=== PATIENT | female | born 1950 | race Caucasian/White ===

== ENCOUNTER → 2020-12-08 15:38 | Outpatient (BNVA) | payer OTHER, SELFPAY | PROVIDERS: PCP Internal Medicine; Visit Provider Anesthesiology | DX: M96.1 Postlaminectomy syndrome, not elsewhere classified (principal); M53.3 Sacrococcygeal disorders, not elsewhere classified; M46.1 Sacroiliitis, not elsewhere classified | CPT/HCPCS: 99202 ==

== ENCOUNTER 2021-01-17 08:27 | Outpatient (REF) | payer OTHER, SELFPAY ==
--- NOTE | ~2021-01-17 | XR_ITS ---
EXAMINATION: XR LUMBOSACRAL SPINE WITH OBLIQUES CLINICAL INFORMATION: Postlaminectomy syndrome. COMPARISON: None TECHNIQUE: 5 views of lumbar spine. FINDINGS: There is mild straightening of lumbar lordosis. There is a disc prosthesis at L4-L5 disc levels stabilized with bilateral L4-L5 pedicular screws and interconnecting rods. The heart at is intact. There is loss of L3-L4 and L2-L3 disc heights. No acute fracture or lytic process seen. On oblique views no pars defect or listhesis seen. No lytic or sclerotic process visualized. The paravertebral soft tissues are normal. XR/XR lumbar spine 4V min IMPRESSION: Disc prosthesis L4-L5 disc level with bilateral pedicle screws antegrade rods for posterior stabilization. Degenerative disc changes are seen at L2-L3 and L3-L4 disc levels without acute fracture or dislocation.
== END 2021-01-17 08:28 | disposition home or self-care (01) ==
LOC: HO.XRAY 08:27
PROVIDERS: PCP Internal Medicine; Visit Provider Anesthesiology
DX: M96.1 Postlaminectomy syndrome, not elsewhere classified (principal); M53.3 Sacrococcygeal disorders, not elsewhere classified; M46.1 Sacroiliitis, not elsewhere classified
CPT/HCPCS: 72110; 99212

== ENCOUNTER 2021-03-15 06:22 | Outpatient (REF) | payer OTHER, SELFPAY ==
--- NOTE | ~2021-03-15 | FL_ITS ---
EXAMINATION: XR FLUOROSCOPY WITH IMAGES CLINICAL INFORMATION: Post laminectomy syndrome. COMPARISON: None. TECHNIQUE: Fluoroscopy performed by Alva Lim NP Fluoroscopy time: 0.2 minutes DAP: 2.83 Gycm2 Images: 2 FINDINGS: There is L4-L5 disc prosthesis with bilateral L4-L5 pedicle screws and interconnecting rods. A needle is positioned overlying the L3 disc level and appears intrathecal on the lateral view. Visualized vertebral heights and disc heights are normal. FL/FL guidance in treatment room IMPRESSION: L4-L5 disc prosthesis with bilateral pedicular screws and interconnecting rods.
== END 2021-03-15 06:23 | disposition home or self-care (01) ==
LOC: HO.RADIR 06:22
PROVIDERS: Visit Provider Anesthesiology
DX: M96.1 Postlaminectomy syndrome, not elsewhere classified (principal); M53.3 Sacrococcygeal disorders, not elsewhere classified; M46.1 Sacroiliitis, not elsewhere classified; G89.4 Chronic pain syndrome
CPT/HCPCS: 62323; J2270; Q9967

== ENCOUNTER → 2021-03-23 08:47 | Outpatient (BNVA) | payer OTHER, SELFPAY | PROVIDERS: PCP Internal Medicine; Visit Provider Anesthesiology | DX: M96.1 Postlaminectomy syndrome, not elsewhere classified (principal); M53.3 Sacrococcygeal disorders, not elsewhere classified; M46.1 Sacroiliitis, not elsewhere classified; G89.4 Chronic pain syndrome | CPT/HCPCS: 99212 ==

== ENCOUNTER 2022-04-04 11:12 | Outpatient (REF) | payer OTHER, SELFPAY ==
[2022-04-04 14:18] LABS: C Reactive Protein 0.12 mg/dL (< or = 0.50)
[2022-04-04 14:29] LABS: Erythrocyte Sedimentation Rate 23 MM/HR (0-20)
[2022-04-05 04:47] LABS: HBS Num1 0.96 mIU/mL (0-7.99); HBc Num1 0.06 S/CO (0.00-0.79); HBsAGNum1 0.22 S/CO (0.00-0.99); Hepatitis A Antibody IgM 0.19 Index (0-0.79); Hepatitis B Core Antibody Nonreactive (Nonreactive); Hepatitis B Surface Antigen Negative (Negative); ~HepC Num1 0.09 S/CO (0.00-0.79); ~Hepatitis A Antibody IgM Nonreactive (Nonreactive); ~Hepatitis B Surface Antibody NONREACTIVE (Nonreactive); ~Hepatitis C Antibody Nonreactive (Nonreactive)
[2022-04-06 13:03] LABS: Cyclic Citrullinated Peptide <16 UNITS
[2022-04-07 05:52] LABS: Antibody to SS-A Antigen <1.0 NEG AI (<1.0 NEG); Antibody to SS-B Antigen <1.0 NEG AI (<1.0 NEG)
== END 2022-04-04 11:13 | disposition home or self-care (01) ==
LOC: HO.10HDL 11:12
PROVIDERS: Visit Provider Internal Medicine Rheumatology
DX: M79.641 Pain in right hand (principal); M79.642 Pain in left hand; N18.30 Chronic kidney disease, stage 3 unspecified; R76.8 Other specified abnormal immunological findings in serum; H04.129 Dry eye syndrome of unspecified lacrimal gland; Z79.899 Other long term (current) drug therapy
CPT/HCPCS: 36415; 85652; 86140; 86200; 86235; 86704; 86706; 86709; 86803; 87340; 99202

== ENCOUNTER 2022-04-05 09:42 | Outpatient (REF) | payer OTHER, SELFPAY ==
--- NOTE | ~2022-04-05 | XR_ITS ---
EXAMINATION: X-RAY RIGHT HAND X-RAY LEFT HAND CLINICAL INFORMATION: Abnormal immunological findings in serum. COMPARISON: None TECHNIQUE: 3 views of each hand. FINDINGS: Right hand: Decrease bone mineralization. Nonspecific deformity of the distal fifth proximal phalanx. Amputation of the third and fourth digits at the level of the middle phalanges. Multifocal moderate joint space narrowing with tiny marginal enthesophytes. No erosions. Mild widening of the scapholunate interval. No abnormal soft tissue calcifications. Left hand: No acute fractures or malalignment. Decreased bone mineralization. Severe joint space narrowing, subcortical sclerosis and productive changes in the first CMC joint and triscaphe space. The scapholunate interval is preserved. No erosions. No abnormal soft tissue calcifications. XR/XR hand LT min 3V IMPRESSION: Right hand: 1. Query fracture of the distal aspect of the fifth proximal phalanx. Correlate with point tenderness. 2. Widening of the scapholunate interval suggesting scapholunate ligament injury. 3. Amputation of the third and fourth digits to the level of the middle phalanges. 4. Moderate multifocal osteoarthrosis. 5. Decreased bone mineralization. Left hand: 1. No acute fractures. 2. Decreased bone mineralization. 3. Severe osteoarthrosis of the first CMC joint and triscaphe space. 4. Decreased bone mineralization.
--- NOTE | ~2022-04-05 | XR_ITS ---
EXAMINATION: X-RAY RIGHT HAND X-RAY LEFT HAND CLINICAL INFORMATION: Abnormal immunological findings in serum. COMPARISON: None TECHNIQUE: 3 views of each hand. FINDINGS: Right hand: Decrease bone mineralization. Nonspecific deformity of the distal fifth proximal phalanx. Amputation of the third and fourth digits at the level of the middle phalanges. Multifocal moderate joint space narrowing with tiny marginal enthesophytes. No erosions. Mild widening of the scapholunate interval. No abnormal soft tissue calcifications. Left hand: No acute fractures or malalignment. Decreased bone mineralization. Severe joint space narrowing, subcortical sclerosis and productive changes in the first CMC joint and triscaphe space. The scapholunate interval is preserved. No erosions. No abnormal soft tissue calcifications. XR/XR hand RT min 3V IMPRESSION: Right hand: 1. Query fracture of the distal aspect of the fifth proximal phalanx. Correlate with point tenderness. 2. Widening of the scapholunate interval suggesting scapholunate ligament injury. 3. Amputation of the third and fourth digits to the level of the middle phalanges. 4. Moderate multifocal osteoarthrosis. 5. Decreased bone mineralization. Left hand: 1. No acute fractures. 2. Decreased bone mineralization. 3. Severe osteoarthrosis of the first CMC joint and triscaphe space. 4. Decreased bone mineralization.
--- NOTE | ~2022-04-05 | XR_ITS ---
EXAMINATION: XR HIP, LEFT CLINICAL INFORMATION: Abnormal immunological finding in serum. COMPARISON: None TECHNIQUE: Two views of the left hip. FINDINGS: No acute fractures or malalignment. Mild to moderate joint space narrowing, subcortical sclerosis and osteophytes in the hips. Calcific tendinosis noted adjacent to the left greater trochanter. SI joints are symmetric. Pubic symphysis is maintained. No erosions. Atherosclerotic disease. L4-L5 posterior lumbar hardware with interdisc spacer. XR/XR hip LT w PEL1V IMPRESSION: 1. No acute fractures or malalignment. 2. Mild to moderate degenerative osteoarthritis of the hips. 3. Calcific tendinosis of the left hip.
== END 2022-04-05 09:43 | disposition home or self-care (01) ==
LOC: HO.XRAY 09:42
PROVIDERS: PCP Internal Medicine; Visit Provider Internal Medicine Rheumatology
DX: M79.641 Pain in right hand (principal); M79.642 Pain in left hand; R76.8 Other specified abnormal immunological findings in serum
CPT/HCPCS: 73130; 73502

== ENCOUNTER → 2022-04-24 08:49 | Outpatient (BNVA) | payer OTHER, SELFPAY | PROVIDERS: PCP Internal Medicine; Visit Provider Internal Medicine Rheumatology | DX: M05.79 Rheumatoid arthritis with rheumatoid factor of multiple sites without organ or systems involvement (principal); N18.30 Chronic kidney disease, stage 3 unspecified; M47.816 Spondylosis without myelopathy or radiculopathy, lumbar region; M16.0 Bilateral primary osteoarthritis of hip; Z79.899 Other long term (current) drug therapy | CPT/HCPCS: 99212 ==

== ENCOUNTER 2022-05-25 10:12 | Outpatient (REF) | payer OTHER, SELFPAY ==
[2022-05-25 10:38] LABS: MANUAL DIFF FLAG NO
[2022-05-25 10:55] LABS: Basophils Absolute Auto 0.1 X10*3/uL (0.0-0.2); Eosinophils Absolute Auto 0.2 X10*3/uL (0.0-0.4); Eosinophils Percent Auto 2.4 % (0-4); Hematocrit 44.8 % (37.0-47.0); Hemoglobin 14.4 g/dl (12.0-16.0); Imm Gran Abs Auto 0.03 X10*3/uL (0.00-0.03); Imm Gran Pct Auto 0.3 % (0.0-0.4); Lymphocytes Percent Auto 22.9 % (20-40); Mean Corpuscular HGB Conc 32.1 g/dl (31.0-35.0); Mean Corpuscular Hemoglobin 32.4 pg (27.0-33.0); Mean Corpuscular Volume 100.7 fL (80.0-98.0); Mean Platelet Volume 10.8 fL (9.4-12.3); Monocytes Absolute Auto 0.5 X10*3/uL (0.1-1.2); Monocytes Percent Auto 6.1 % (2-11); Neutrophils Percent Auto 67.3 % (45-73); Platelet Count 241 X10*3/uL (160-400); Red Blood Count 4.45 X10*6/uL (4.20-5.50); Red Cell Distribution Width 14.2 % (11.0-16.0); White Blood Count 8.9 X10*3/uL (4.8-10.8)
[2022-05-25 11:27] LABS: Erythrocyte Sedimentation Rate 25 MM/HR (0-20)
[2022-05-25 15:02] LABS: Creatinine Urine 164.18 mg/dL; Protein/Creatinine Ratio, Ur 0.09 (<0.2); Total Protein Urine Random 14 mg/dL (<12)
[2022-05-25 18:14] LABS: Alanine Aminotransferase 15 U/L (0-31); Aspartate Amino Transferase 18 U/L (5-31); C Reactive Protein 0.17 mg/dL (< or = 0.50); Estimated Glomerular Filt Rate 42
== END 2022-05-25 10:13 | disposition home or self-care (01) ==
LOC: HO.10HDL 10:12
PROVIDERS: Visit Provider Internal Medicine Rheumatology
DX: M79.641 Pain in right hand (principal); M79.642 Pain in left hand; N18.30 Chronic kidney disease, stage 3 unspecified; R76.8 Other specified abnormal immunological findings in serum; M05.79 Rheumatoid arthritis with rheumatoid factor of multiple sites without organ or systems involvement; Z79.899 Other long term (current) drug therapy
CPT/HCPCS: 36415; 82565; 84156; 84450; 84460; 85025; 85652; 86140

== ENCOUNTER → 2022-06-07 10:48 | Outpatient (BNVA) | payer OTHER, SELFPAY | PROVIDERS: PCP Internal Medicine; Visit Provider Internal Medicine Rheumatology | DX: M05.79 Rheumatoid arthritis with rheumatoid factor of multiple sites without organ or systems involvement (principal); Z79.631 Long term (current) use of antimetabolite agent | CPT/HCPCS: 99212 ==

== ENCOUNTER 2022-08-14 09:59 | Outpatient (REF) | payer OTHER, SELFPAY ==
[2022-08-14 10:40] LABS: MANUAL DIFF FLAG NO
[2022-08-14 10:45] LABS: Basophils Absolute Auto 0.1 X10*3/uL (0.0-0.2); Basophils Percent Auto 1.1 % (0-2); Eosinophils Absolute Auto 0.2 X10*3/uL (0.0-0.4); Eosinophils Percent Auto 2.3 % (0-4); Hematocrit 42.6 % (37.0-47.0); Hemoglobin 13.7 g/dl (12.0-16.0); Imm Gran Abs Auto 0.03 X10*3/uL (0.00-0.03); Imm Gran Pct Auto 0.4 % (0.0-0.4); Lymphocytes Absolute Auto 1.6 X10*3/uL (1.2-4.9); Lymphocytes Percent Auto 19.4 % (20-40); Mean Corpuscular HGB Conc 32.2 g/dl (31.0-35.0); Mean Corpuscular Volume 105.7 fL (80.0-98.0); Monocytes Absolute Auto 0.6 X10*3/uL (0.1-1.2); Monocytes Percent Auto 7.1 % (2-11); Neutrophils Absolute Auto 5.8 x10*3/uL (2.0-8.3); Neutrophils Percent Auto 69.7 % (45-73); Platelet Count 221 X10*3/uL (160-400); Red Blood Count 4.03 X10*6/uL (4.20-5.50); Red Cell Distribution Width 14.3 % (11.0-16.0); White Blood Count 8.3 X10*3/uL (4.8-10.8)
[2022-08-14 11:24] LABS: Alanine Aminotransferase 16 U/L (0-31); Aspartate Amino Transferase 19 U/L (5-31); C Reactive Protein 0.29 mg/dL (< or = 0.50); Estimated Glomerular Filt Rate 42
[2022-08-14 11:32] LABS: Erythrocyte Sedimentation Rate 23 MM/HR (0-20)
== END 2022-08-14 10:00 | disposition home or self-care (01) ==
LOC: HO.10HDL 09:59
PROVIDERS: Visit Provider Internal Medicine Rheumatology
DX: M05.79 Rheumatoid arthritis with rheumatoid factor of multiple sites without organ or systems involvement (principal); Z79.899 Other long term (current) drug therapy
CPT/HCPCS: 36415; 82565; 84450; 84460; 85025; 85652; 86140

== ENCOUNTER → 2022-08-23 08:24 | Outpatient (BNVA) | payer OTHER, SELFPAY | PROVIDERS: PCP Internal Medicine; Visit Provider Internal Medicine Rheumatology | DX: M05.79 Rheumatoid arthritis with rheumatoid factor of multiple sites without organ or systems involvement (principal); M47.816 Spondylosis without myelopathy or radiculopathy, lumbar region; N18.30 Chronic kidney disease, stage 3 unspecified; Z79.899 Other long term (current) drug therapy | CPT/HCPCS: 99212 ==

== ENCOUNTER 2022-11-21 11:10 | Outpatient (REF) | payer OTHER, SELFPAY ==
[2022-11-21 13:11] LABS: MANUAL DIFF FLAG NO
[2022-11-21 13:24] LABS: Basophils Absolute Auto 0.1 X10*3/uL (0.0-0.2); Basophils Percent Auto 1.3 % (0-2); Eosinophils Absolute Auto 0.2 X10*3/uL (0.0-0.4); Hematocrit 43.6 % (37.0-47.0); Hemoglobin 14.1 g/dl (12.0-16.0); Imm Gran Abs Auto 0.03 X10*3/uL (0.00-0.03); Imm Gran Pct Auto 0.5 % (0.0-0.4); Lymphocytes Absolute Auto 1.5 X10*3/uL (1.2-4.9); Mean Corpuscular HGB Conc 32.3 g/dl (31.0-35.0); Mean Corpuscular Hemoglobin 35.2 pg (27.0-33.0); Mean Corpuscular Volume 108.7 fL (80.0-98.0); Mean Platelet Volume 11.1 fL (9.4-12.3); Monocytes Absolute Auto 0.4 X10*3/uL (0.1-1.2); Monocytes Percent Auto 7.3 % (2-11); Neutrophils Absolute Auto 3.8 x10*3/uL (2.0-8.3); Neutrophils Percent Auto 62.9 % (45-73); Platelet Count 214 X10*3/uL (160-400); Red Blood Count 4.01 X10*6/uL (4.20-5.50); Red Cell Distribution Width 13.2 % (11.0-16.0)
[2022-11-21 13:37] LABS: Alanine Aminotransferase 14 U/L (0-31); Aspartate Amino Transferase 16 U/L (5-31); C Reactive Protein 0.46 mg/dL (< or = 0.50); Estimated Glomerular Filt Rate > 60
[2022-11-21 14:10] LABS: Erythrocyte Sedimentation Rate 21 MM/HR (0-20)
== END 2022-11-21 11:11 | disposition home or self-care (01) ==
LOC: HO.10HDL 11:10
PROVIDERS: Visit Provider Internal Medicine Rheumatology
DX: M05.79 Rheumatoid arthritis with rheumatoid factor of multiple sites without organ or systems involvement (principal); Z79.899 Other long term (current) drug therapy
CPT/HCPCS: 36415; 82565; 84450; 84460; 85025; 85652; 86140

== ENCOUNTER → 2022-12-11 08:03 | Outpatient (BNVA) | payer OTHER, SELFPAY | PROVIDERS: PCP Internal Medicine; Visit Provider Internal Medicine Rheumatology | DX: M05.79 Rheumatoid arthritis with rheumatoid factor of multiple sites without organ or systems involvement (principal); M47.816 Spondylosis without myelopathy or radiculopathy, lumbar region; Z79.899 Other long term (current) drug therapy | CPT/HCPCS: 99212 ==

== ENCOUNTER 2023-02-27 10:01 | Outpatient (REF) | payer OTHER, SELFPAY ==
[2023-02-27 13:19] LABS: MANUAL DIFF FLAG NO
[2023-02-27 13:33] LABS: Basophils Absolute Auto 0.1 X10*3/uL (0.0-0.2); Basophils Percent Auto 1.3 % (0-2); Eosinophils Absolute Auto 0.4 X10*3/uL (0.0-0.4); Eosinophils Percent Auto 5.1 % (0-4); Hematocrit 45.3 % (37.0-47.0); Hemoglobin 14.8 g/dl (12.0-16.0); Imm Gran Abs Auto 0.04 X10*3/uL (0.00-0.03); Imm Gran Pct Auto 0.5 % (0.0-0.4); Lymphocytes Absolute Auto 1.6 X10*3/uL (1.2-4.9); Lymphocytes Percent Auto 19.6 % (20-40); Mean Corpuscular HGB Conc 32.7 g/dl (31.0-35.0); Mean Corpuscular Volume 101.1 fL (80.0-98.0); Mean Platelet Volume 10.4 fL (9.4-12.3); Monocytes Absolute Auto 0.7 X10*3/uL (0.1-1.2); Monocytes Percent Auto 8.4 % (2-11); Neutrophils Absolute Auto 5.5 x10*3/uL (2.0-8.3); Neutrophils Percent Auto 65.1 % (45-73); Platelet Count 284 X10*3/uL (160-400); Red Blood Count 4.48 X10*6/uL (4.20-5.50); Red Cell Distribution Width 12.3 % (11.0-16.0); White Blood Count 8.4 X10*3/uL (4.8-10.8)
[2023-02-27 14:12] LABS: Erythrocyte Sedimentation Rate 50 MM/HR (0-20)
[2023-02-27 14:13] LABS: Anion Gap 15 (12-20); Blood Urea Nitrogen 20 mg/dL (9-16); C Reactive Protein 2.34 mg/dL (< or = 0.50); Calcium 9.8 mg/dL (8.4-10.2); Carbon Dioxide 26 mmol/L (22-29); Chloride 98 mmol/L (96-108); Estimated Glomerular Filt Rate 58; Glucose Random 111 mg/dL (60-115); Potassium 5.1 mmol/L (3.3-5.1); Sodium 134 mmol/L (135-145)
== END 2023-02-27 10:02 | disposition home or self-care (01) ==
LOC: HO.10HDL 10:01
PROVIDERS: Visit Provider Internal Medicine Rheumatology
DX: M05.79 Rheumatoid arthritis with rheumatoid factor of multiple sites without organ or systems involvement (principal); Z79.899 Other long term (current) drug therapy
CPT/HCPCS: 36415; 80048; 85025; 85652; 86140

== ENCOUNTER 2023-03-13 08:03 | Outpatient (AMB) | payer OTHER, SELFPAY ==
--- NOTE | 2023-03-13 08:04 | MHC.OFFVIS ---
Intake Vital Signs 03/13/23 08:12 Height 5 ft 6 in Weight 177 lb 0.499 oz BMI 28.6 BP 112/72 Blood Pressure Location Lt brachial Position Sitting Pulse 65 Pulse Source Pulse Oximeter Temp 97.6 F Temp Source Skin Pulse Oximetry (%) 98 Oxygen Delivery Method Room Air Intake Visit Reasons: RA Intake Note: Patient presents today for RA follow up. Retail Link Analyst Required: No Accompanied by: Self / Same As Patient Allergies fish oil Allergy (Verified 03/13/23 08:04) unknown penicillin G Allergy (Verified 03/13/23 08:04) unknown aspirin Adverse Reaction (Intermediate, Verified 03/13/23 08:04) Nausea and Vomiting methocarbamol Adverse Reaction (Intermediate, Verified 03/13/23 08:04) Nausea and Vomiting Medication List - Last Reconciled 03/13/23 by Brendon Warren MD acetaminophen (Tylenol Extra Strength) 1,500 mg PO BID atenolol 50 mg PO DAILY buprenorphine 7.5 mcg/hour 1 patch transdermal Q7D levothyroxine 125 mcg PO DAILY lisinopril 10 mg PO DAILY multivitamin 1 tab PO DAILY simvastatin 20 mg PO BEDTIME HPI HPI Comments History of Present Illness Details The patient returns for evaluation of her rheumatoid arthritis. She remains on acetaminophen as the sole treatment for now. She takes Suboxone via a patch for her lumbar pain with sciatica prescribed by Dr. Kraft. That seemed to work fine with her back pain. She did some moving of her goods from her camper this weekend and had a bit more back pain but is walking comfortably with a cane. Her peripheral joints do not seem to bother with exception of the left knee which tends to swell intermittently. She was supposed to get an eye exam so we could assess her suitability for hydroxychloroquine but she could not get an appointment until April. She has a low dose CT scan schedule for tomorrow for lung cancer screening. [facility] Medical History (Updated 03/13/23 @ 07:37 by Brendon Warren MD) Chronic pain syndrome Sacroiliitis Sacroiliac joint dysfunction of both sides Postlaminectomy syndrome of lumbar region Surgical History Hx of tonsillectomy History of total hysterectomy with bilateral salpingo-oophorectomy (BSO) H/O bilateral cataract extraction Status post right breast lumpectomy History of lumbar fusion History of back surgery Hx of appendectomy Family History Sister Breast cancer Arthritis Paternal Grandmother Breast cancer Mother Arthritis Diabetes Social History (Updated 03/13/23 @ 08:12 by CARLOS Myers) Household Members: Family [facility] Are you a primary career development counselor to a significant other at home: No Do you presently have visiting nurse or other home services: No Alcohol intake: current Alcohol intake frequency: holidays/special occasions only Alcohol type: wine Patient Tobacco Use Status: Current everyday Tobacco user Cigarettes Per Day: 5 Years Smoked: 58 years e-Cigarette/Vaping Use: Never Used service: No Current occupational status: retired 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 Negative for wheezing GI Details: Negative indigestion/heartburn, nausea, abdominal pain, bowel changes, diarrhea, constipation and bloody stool. Danish/Lymph Details: Negative for excessive bruising or bleeding. Physical Exam Vital Signs: Last Vital Signs Temp 97.6 F 03/13/23 08:12 Pulse 65 03/13/23 08:12 BP 112/72 03/13/23 08:12 Pulse Ox 98 03/13/23 08:12 Oxygen Delivery Method Room Air 03/13/23 08:12 BMI result Body Mass Index 28.6 APPEARANCE: Patient in no acute distress EYES no redness, pupils equal and reactive to light, eyelids normal NEURO: Oriented and alert x3. No focal weakness. Reflexes symmetric. Gait normal. JOINT EXAM: ?? Cervical Spine:.? Mild discomfort with lateral flexion at 15 degrees of rotation at 45 degrees.? No tenderness. Thoracic Spine:.? No scoliosis.? No tenderness on palpation. Lumbar Spine:.? Alignment normal.? Full range of motion with moderate lumbar pain at 45 degrees flexion.? There is mild to moderate paraspinal muscle tenderness. Chest Wall:.? No tenderness, swelling, increased warmth or erythema. Hands:.? Right: Mild tenderness and bony enlargement at the thumb CMC joint.? There is no tenderness and slight swelling at the 2nd and 3rd MCP joints.? There are distal? 4th finger amputations from trauma.? There is no PIP joint tenderness or swelling.? There is no thenar atrophy or sensory loss.? Left: Mild bony enlargement without tenderness at the base of the thumb.? There is mild swelling without tenderness at the 2nd through 4th MCP joints.? There is no thenar atrophy or sensory loss. Wrists:? Right:? There is mild swelling, minimal tenderness, and mild pain with flexion or extension at 45 degrees.? No redness or warmth.? Left: Slight discomfort with 75 degrees flexion extension without swelling or tenderness. Elbows:. Normal pain-free range of motion without tenderness, swelling, increased warmth or erythema. Shoulders:.?? Full range of motion without pain. No tenderness, weakness, swelling, increased warmth or erythema. Hips:.? Full range of motion without pain. Hip bursa:.? No tenderness. Knees:.??Right:? Pain-free range of motion with mild patellofemoral crepitus.? Slight medial tenderness without redness or effusion.? Left:? Pain with extremes of flexion or extension.? There is some mild valgus deformity and mild patellofemoral crepitus.? There is no effusion evident with some mild medial tenderness.? No redness or warmth. Ankles:?Normal pain-free range of motion with mild valgus deformity.? No tenderness, swelling, increased warmth or erythema. Feet:? Normal pain-free range of motion with some pes planus deformity but no tenderness or swelling. ? Results Reviewed Results Reviewed: Laboratory Tests 11/21/22 02/27/23 11:13 10:10 WBC 8.4 Hgb 14.8 ESR 50 H Creatinine 0.94 AST 16 ALT 14 C-Reactive Protein 2.34 H Assessment & Plan Assessment & Plan (1) Osteoarthritis, hip, bilateral: Code(s): M16.0 - Bilateral primary osteoarthritis of hip (2) Osteoarthritis of lumbar spine: Code(s): M47.816 - Spondylosis without myelopathy or radiculopathy, lumbar region (3) Seropositive rheumatoid arthritis of multiple joints: Comment: Onset ? 2014 CCP negative. methotrexate started 04/2022 -stopped 11/2022 due to nausea Code(s): M05.79 - Rheumatoid arthritis with rheumatoid factor of multiple sites without organ or systems involvement Plan Rheumatoid arthritis with some mild findings of synovitis in spite of her being on no NSAIDs or DMARD currently. I think in light of her OA evident in the hips and in the knees DMARD would be helpful at potentially avoiding progression of joint damage in those areas. She will continue with the acetaminophen as needed. She will call us when she gets the eye exam and clearance to start the hydroxychloroquine so we can send her a prescription. Follow-up will be planned for May. Orders: Orders Complete Blood Count Auto Diff Today M05.79 - Rheumatoid arthritis with rheumatoid factor of multiple sites without organ or systems involvement, Z79.899 - Other superintendent marine oil terminal (current) drug therapy C Reactive Protein Today M05.79 - Rheumatoid arthritis with rheumatoid factor of multiple sites without organ or systems involvement Erythrocyte Sedimentation Rate Today M05.79 - Rheumatoid arthritis with rheumatoid factor of multiple sites without organ or systems involvement Creatinine Today M05.79 - Rheumatoid arthritis with rheumatoid factor of multiple sites without organ or systems involvement, Z79.899 - Other superintendent marine oil terminal (current) drug therapy Coding Level of Care Code Est Pt Level 3 (85925) Diagnoses Osteoarthritis, hip, bilateral M16.0 Osteoarthritis of lumbar spine M47.816 Seropositive rheumatoid arthritis of multiple joints M05.79
[2023-03-13 08:12] VITALS: BP 112/72; PULSE 65; TEMP 36.4; O2SAT 98; BMI 28.6
== END 2023-03-13 08:30 | disposition home or self-care (01) ==
PROVIDERS: PCP Internal Medicine; Visit Provider Internal Medicine Rheumatology
DX: M16.0 Bilateral primary osteoarthritis of hip (principal); M47.816 Spondylosis without myelopathy or radiculopathy, lumbar region; M05.79 Rheumatoid arthritis with rheumatoid factor of multiple sites without organ or systems involvement
CPT/HCPCS: 99213

== ENCOUNTER → 2023-03-13 08:03 | Outpatient (BNVA) | payer OTHER, SELFPAY | PROVIDERS: PCP Internal Medicine; Visit Provider Internal Medicine Rheumatology | DX: M05.79 Rheumatoid arthritis with rheumatoid factor of multiple sites without organ or systems involvement (principal); M16.0 Bilateral primary osteoarthritis of hip; M47.816 Spondylosis without myelopathy or radiculopathy, lumbar region | CPT/HCPCS: 99212 ==

== ENCOUNTER 2023-06-05 12:47 | Outpatient (REF) | payer OTHER, SELFPAY ==
[2023-06-05 13:24] LABS: MANUAL DIFF FLAG NO
[2023-06-05 13:30] LABS: Basophils Absolute Auto 0.1 X10*3/uL (0.0-0.2); Basophils Percent Auto 1.2 % (0-2); Eosinophils Absolute Auto 0.2 X10*3/uL (0.0-0.4); Eosinophils Percent Auto 2.3 % (0-4); Hematocrit 48.2 % (37.0-47.0); Hemoglobin 15.4 g/dl (12.0-16.0); Imm Gran Abs Auto 0.02 X10*3/uL (0.00-0.03); Imm Gran Pct Auto 0.3 % (0.0-0.4); Lymphocytes Absolute Auto 2.3 X10*3/uL (1.2-4.9); Lymphocytes Percent Auto 30.6 % (20-40); Mean Corpuscular Hemoglobin 32.8 pg (27.0-33.0); Mean Corpuscular Volume 102.8 fL (80.0-98.0); Mean Platelet Volume 10.8 fL (9.4-12.3); Monocytes Absolute Auto 0.5 X10*3/uL (0.1-1.2); Monocytes Percent Auto 6.9 % (2-11); Neutrophils Absolute Auto 4.4 x10*3/uL (2.0-8.3); Neutrophils Percent Auto 58.7 % (45-73); Platelet Count 225 X10*3/uL (160-400); Red Blood Count 4.69 X10*6/uL (4.20-5.50); Red Cell Distribution Width 13.2 % (11.0-16.0); White Blood Count 7.4 X10*3/uL (4.8-10.8)
[2023-06-05 13:49] LABS: C Reactive Protein 0.21 mg/dL (< or = 0.50); Estimated Glomerular Filt Rate 51
[2023-06-05 14:20] LABS: Erythrocyte Sedimentation Rate 17 MM/HR (0-20)
== END 2023-06-05 12:48 | disposition home or self-care (01) ==
LOC: HO.10HDL 12:47
PROVIDERS: Visit Provider Internal Medicine Rheumatology
DX: M05.79 Rheumatoid arthritis with rheumatoid factor of multiple sites without organ or systems involvement (principal); Z79.899 Other long term (current) drug therapy
CPT/HCPCS: 36415; 82565; 85025; 85652; 86140

== ENCOUNTER 2023-06-13 08:44 | Outpatient (AMB) | payer OTHER, SELFPAY ==
[2023-06-13 08:47] VITALS: BP 108/72; PULSE 68; TEMP 36.5; O2SAT 97; BMI 28.0
--- NOTE | 2023-06-13 08:47 | A.OFFVIS_ITS ---
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: No Accompanied by: Self / Same As Patient Allergies fish oil Allergy (Verified 06/13/23 08:49) unknown penicillin G Allergy (Verified 06/13/23 08:49) unknown aspirin Adverse Reaction (Intermediate, Verified 06/13/23 08:49) Nausea and Vomiting methocarbamol Adverse Reaction (Intermediate, Verified 06/13/23 08:49) Nausea and Vomiting Medication List - Last Reconciled 06/13/23 by Mami Silva RN acetaminophen (Tylenol Extra Strength) 1,500 mg PO BID atenolol 50 mg PO DAILY buprenorphine 7.5 mcg/hour 1 patch transdermal Q7D levothyroxine 125 mcg PO DAILY lisinopril 10 mg PO DAILY multivitamin 1 tab PO DAILY simvastatin 20 mg PO BEDTIME HPI HPI Comments History of Present Illness Details Patient returns for evaluation of her seropositive rheumatoid arthritis. She remains on buprenorphine patches once a week for her lumbar osteoarthritis. Those seem to be doing okay. She feels like she can walk without significant problems. She does remain on acetaminophen taking 1500 mg b.i.d.. She only occasionally gets hand or wrist pains. Most the time if she gets pain it is in her back. It seems to radiate to the buttocks. I did have her go to the eye doctor to see if we might consider hydroxychloroquine. She tells me the eye doctor felt that was not a good idea. I am not exactly sure what the pathology was but the patient was told that she had abnormalities in th e eye already. I would suspect maybe this would make monitoring the hydroxychloroquine very difficult as time went on. She had recent CT scan screening for lung cancer. Another follow-up scan is scheduled for next week. [facility] Medical History Chronic pain syndrome Sacroiliitis Sacroiliac joint dysfunction of both sides Postlaminectomy syndrome of lumbar region Surgical History Hx of tonsillectomy History of total hysterectomy with bilateral salpingo-oophorectomy (BSO) H/O bilateral cataract extraction Status post right breast lumpectomy History of lumbar fusion History of back surgery Hx of appendectomy Family History Sister Breast cancer Arthritis Paternal Grandmother Breast cancer Mother Arthritis Diabetes Social History Household Members: [facility] Are you a primary post acute care registered nurse to a significant other at home: No Do you presently have visiting nurse or other home services: No Alcohol intake: current Alcohol intake frequency: holidays/special occasions only Alcohol type: wine Patient Tobacco Use Status: Current everyday Tobacco user Cigarettes Per Day: 5 Years Smoked: 58 years e-Cigarette/Vaping Use: Never Used service: No Current occupational status: retired 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 Card Details: Negative chest pain, edema and syncope Resp Details: Negative for SOB, cough and wheezing GI Details: Negative indigestion/heartburn, nausea, abdominal pain, bowel changes, diarrhea, constipation and bloody stool. Endo Details: Negative for polyuria and polydypsia Danish/Lymph Details: Negative for excessive bruising or bleeding. Physical Exam Vital Signs: Last Vital Signs Temp 97.7 F 06/13/23 08:47 Pulse 68 06/13/23 08:47 BP 108/72 06/13/23 08:47 Pulse Ox 97 06/13/23 08:47 Oxygen Delivery Method Room Air 06/13/23 08:47 BMI result Body Mass Index 28.0 APPEARANCE: Patient in no acute distress EYES: no redness, pupils equal and reactive to light, eyelids normal JOINT EXAM: ?? Cervical Spine:.? Mild discomfort with lateral flexion at 15 degrees of rotation at 45 degrees.? No tenderness. Thoracic Spine:.? No scoliosis.? No tenderness on palpation. Lumbar Spine:.? Alignment normal.? Full range of motion with mild lumbar pain at 60 degrees flexion.? There is slight paraspinal muscle tenderness. Chest Wall:.? No tenderness, swelling, increased warmth or erythema. Hands:.? Right: Mild tenderness and bony enlargement at the thumb CMC joint.? There is no tenderness and slight swelling at the 2nd and 3rd MCP joints.? There are well-healed distal? 4th finger amputations from trauma.? There is no PIP joint tenderness or swelling.? There is no thenar atrophy or sensory loss.? Left: Mild bony enlargement without tenderness at the base of the thumb.? There is slight swelling without tenderness at the 2nd through 4th MCP joints.? There is no thenar atrophy or sensory loss. Wrists:? Right:? There is slight thickening present without tenderness, redness, warmth or pain with motion to flexion or extension at 60 degrees.? No redness or warmth.? Left: no discomfort with 75 degrees flexion or extension without swelling or tenderness. Elbows:. Normal pain-free range of motion without tenderness, swelling, increased warmth or erythema. Shoulders:.?? Full range of motion without pain. No tenderness, weakness, swe lling, increased warmth or erythema. Hips:.? Full range of motion without pain. Hip bursa:.? No tenderness. Knees:.??Right:? Pain-free range of motion with mild patellofemoral crepitus.? Slight medial tenderness without redness or effusion.? Left:? Pain with extremes of flexion or extension.? There is some mild valgus deformity and mild patellofemoral crepitus.? There is no effusion evident with some mild medial tenderness.? No redness or warmth. Ankles:?Normal pain-free range of motion with mild valgus deformity.? No tenderness, swelling, increased warmth or erythema. Feet:? Normal pain-free range of motion with some pes planus deformity but no tenderness or swelling. ? Results Reviewed Results Reviewed: Laboratory Tests 06/05/23 12:55 WBC 7.4 Hgb 15.4 ESR 17 Creatinine 1.06 Laboratory Tests 06/05/23 12:55 C-Reactive Protein 0.21 Assessment & Plan Assessment & Plan (1) Seropositive rheumatoid arthritis of multiple joints: Comment: Onset ? 2014 CCP negative. methotrexate started 04/2022 -stopped 11/2022 due to nausea. hydroxychloroqine considered but eye doctor advised against use - some baseline retinal findings. 05/2023 no synovitis off meds Code(s): M05.79 - Rheumatoid arthritis with rheumatoid factor of multiple sites without organ or systems involvement (2) Osteoarthritis of lumbar spine: Code(s): M47.816 - Spondylosis without myelopathy or radiculopathy, lumbar region Plan Today she seems to have almost no synovitis on exam. There is some slight puffiness in the MCPs but no tenderness today. The ESR and CRP recently normal. This is in spite of her being off any DMARD therapy for a number of months. She also is on some buprenorphine for her lumbar OA which seems to be helping her functioning. She is not sedated. The message she got from the eye doctor was that we should not be trying the hydroxychloroquine. I think the risks at this point of adding DMARDs I think are greater than their benefit. She would be at risk of course for drug allergies and for any potent medications she would be at risk certainly for immunosuppression. She still smokes and has COPD so is at risk for lung infections. I think for now she wants to try to taper the Tylenol a bit so she should reduce the dose to 1 g b.i.d. for a few weeks and then try 500 mg b.i.d. for a few weeks. We will observe her for now off any DMARD. She will continue with the buprenorphine through her vibration analyst. Follow-up at 4-5 months is recommended. Coding Level of Care Code Est Pt Level 3 (76594) Diagnoses Seropositive rheumatoid arthritis of multiple joints M05.79 Osteoarthritis of lumbar spine M47.816
== END 2023-06-13 09:18 | disposition home or self-care (01) ==
PROVIDERS: PCP Internal Medicine; Visit Provider Internal Medicine Rheumatology
DX: M05.79 Rheumatoid arthritis with rheumatoid factor of multiple sites without organ or systems involvement (principal); M47.816 Spondylosis without myelopathy or radiculopathy, lumbar region
CPT/HCPCS: 99213

== ENCOUNTER → 2023-06-13 08:44 | Outpatient (BNVA) | payer OTHER, SELFPAY | PROVIDERS: PCP Internal Medicine; Visit Provider Internal Medicine Rheumatology | DX: M05.79 Rheumatoid arthritis with rheumatoid factor of multiple sites without organ or systems involvement (principal); M47.816 Spondylosis without myelopathy or radiculopathy, lumbar region | CPT/HCPCS: 99212 ==

== ENCOUNTER 2023-10-15 08:58 | Outpatient (AMB) | payer OTHER, SELFPAY ==
[2023-10-15 09:00] VITALS: BP 134/70; PULSE 85; O2SAT 97; BMI 27.8
--- NOTE | 2023-10-15 09:00 | MHC.OFFVIS ---
Vital Signs 10/15/23 09:00 Height 5 ft 6 in Weight 171 lb 15.369 oz BMI 27.8 BP 134/70 Blood Pressure Location Rt brachial Position Sitting Pulse 85 Pulse Source Pulse Oximeter Pulse Oximetry (%) 97 Oxygen Delivery Method Room Air Intake Visit Reasons: RA Intake Note: Patient last seen by Dr Warren 06/13/23 presents today for follow up. Reports lung CA surgery [facility] 08/21/23, quit smoking. Water Quality Assistant Required: No Accompanied by: Self / Same As Patient Allergies fish oil Allergy (Verified 10/15/23 09:04) unknown penicillin G Allergy (Verified 10/15/23 09:04) unknown aspirin Adverse Reaction (Intermediate, Verified 10/15/23 09:04) Nausea and Vomiting methocarbamol Adverse Reaction (Intermediate, Verified 10/15/23 09:04) Nausea and Vomiting Medication List - Last Reconciled 10/15/23 by Danny Michel MD acetaminophen (Tylenol Extra Strength) 1,500 mg PO BID atenolol 50 mg PO DAILY buprenorphine 7.5 mcg/hour 1 patch transdermal Q7D levothyroxine 125 mcg PO DAILY lisinopril 10 mg PO DAILY multivitamin 1 tab PO DAILY simvastatin 20 mg PO BEDTIME HPI Comments Details: 72-year-old female with seropositive RA returns for follow-up. Patient is s/p right upper lobectomy for lung cancer 08/2023. She states that as far she knows she is cancer free and needs active surveillance every 6 months. She quit smoking the day of surgery and has not returned to smoking. She continues to have good and bad days with her rheumatoid arthritis. Most recent history by Dr. Warren 05/2023: Patient returns for evaluation of her seropositive rheumatoid arthritis. She remains on buprenorphine patches once a week for her lumbar osteoarthritis. Those seem to be doing okay. She feels like she can walk without significant problems. She does remain on acetaminophen taking 1500 mg b.i.d.. She only occasionally gets hand or wrist pains. Most the time if she gets pain it is in her back. It seems to radiate to the buttocks. I did have her go to the eye doctor to see if we might consider hydroxychloroquine. She tells me the eye doctor felt that was not a good idea. I am not exactly sure what the pathology was but the patient was told that she had abnormalities in the eye already. I would suspect maybe this would make monitoring the hydroxychloroquine very difficult as time went on. She had recent CT scan screening for lung cancer. Another follow-up scan is scheduled for next week. [facility] Medical History (Updated 10/15/23 @ 09:41 by Danny Michel MD) Rheumatoid factor positive Lung cancer Chronic pain syndrome Sacroiliitis Sacroiliac joint dysfunction of both sides Postlaminectomy syndrome of lumbar region Surgical History S/P lobectomy of lung Hx of tonsillectomy History of total hysterectomy with bilateral salpingo-oophorectomy (BSO) H/O bilateral cataract extraction Status post right breast lumpectomy History of lumbar fusion History of back surgery Hx of appendectomy Family History Sister Breast cancer Arthritis Paternal Grandmother Breast cancer Mother Arthritis Diabetes Social History Household Members: Family Housing: [facility] Are you a primary out of school hours care worker to a significant other at home: No Do you presently have visiting nurse or other home services: No Alcohol intake: current Alcohol intake frequency: holidays/special occasions only Alcohol type: wine Patient Tobacco Use Status: Former Tobacco user Quit Date: 08/21/23 Cigarettes Per Day: 5 Years Smoked: 58 years e-Cigarette/Vaping Use: Never Used service: No Current occupational status: retired 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 Review of Systems [employer] Reports arthralgias, Reports joint swelling and Reports stiffness Physical Exam Vital Signs: Last Vital Signs Pulse 85 10/15/23 09:00 BP 134/70 10/15/23 09:00 Pulse Ox 97 10/15/23 09:00 Oxygen Delivery Method Room Air 10/15/23 09:00 BMI result Body Mass Index 27.8 Const General: cooperative, healthy appearing and comfortable Nutritional Appearance: overweight Orientation/consciousness: patient oriented x3 Limitations: ambulation with cane HEENT Head: Yes normocephalic and Yes atraumatic Resp Effort & Inspection: normal respiratory effort and able to speak in complete sentences Auscultation: clear to auscultation bilaterally Cardio Rate: regular rate Rhythm: regular rhythm Skin General skin exam: no rashes or lesions noted Neuro General: patient oriented x3 Extrem Other: Right wrist swelling without tenderness . Right wrist pain with flexion and extension Right hand Multiple tender flexor tendon tenderness Multiple swollen and tender right hand MCPs Significantly reduced right hand contact lens fitter strength Left hand synovial thickening of multiple MCPs as well as tenderness Few tender flexor tendons Significantly reduced left hand contact lens fitter strength Normal range of motion of elbows without pain Bilateral mildly reduced shoulder abduction Assessment & Plan Assessment & Plan (1) Seropositive rheumatoid arthritis of multiple joints: Comment: Onset ? 2014 ++RF -ve CCP MTX started 04/2022 -stopped 11/2022 due to nausea. hydroxychloroqine considered but eye doctor advised against use - some baseline retinal findings. Code(s): M05.79 - Rheumatoid arthritis with rheumatoid factor of multiple sites without organ or systems involvement Category: Medical Plan: This is a 72-year-old female with seropositive RA who presents for follow-up. This is her 1st visit with me. She used to follow-up with Dr. Warren for decades. On exam patient has multiple swollen and tender joints and will need to start DMARDs. She is s/p right upper lobectomy for lung cancer. Check labs today. Discussed risks and benefits of sulfasalazine. Patient agreed to proceed. Start sulfasalazine once labs are completed. Labs before next visit in 2 months (2) longterm use of drug: Code(s): Z79.899 - Other tank terminal gauger (current) drug therapy Category: Medical Plan: Monitor safety labs for sulfasalazine Plan I spent 35 minutes reviewing patient's chart, evaluating patient, ordering diagnostic workup, counseling patient and documenting in the chart Orders: Orders Complete Blood Count Auto Diff 2 Months M05.79 - Rheumatoid arthritis with rheumatoid factor of multiple sites without organ or systems involvement, Z79.899 - Other tank terminal gauger (current) drug therapy Comprehensive Met. Panel 2 Months M05.79 - Rheumatoid arthritis with rheumatoid factor of multiple sites without organ or systems involvement, Z79.899 - Other tank terminal gauger (current) drug therapy Erythrocyte Sedimentation Rate Today M05.79 - Rheumatoid arthritis with rheumatoid factor of multiple sites without organ or systems involvement C Reactive Protein 2 Months M05.79 - Rheumatoid arthritis with rheumatoid factor of multiple sites without organ or systems involvement, Z79.899 - Other tank terminal gauger (current) drug therapy Erythrocyte Sedimentation Rate 2 Months M05.79 - Rheumatoid arthritis with rheumatoid factor of multiple sites without organ or systems involvement, Z79.899 - Other tank terminal gauger (current) drug therapy Complete Blood Count Auto Diff Today M05.79 - Rheumatoid arthritis with rheumatoid factor of multiple sites without organ or systems involvement Comprehensive Met. 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
== END 2023-10-15 09:34 | disposition home or self-care (01) ==
PROVIDERS: PCP Internal Medicine; Visit Provider Student in an Organized Health Care Education/Training Program
DX: M05.79 Rheumatoid arthritis with rheumatoid factor of multiple sites without organ or systems involvement (principal); Z79.899 Other long term (current) drug therapy
CPT/HCPCS: 99214

== ENCOUNTER → 2023-10-15 08:58 | Outpatient (BNVA) | payer OTHER, SELFPAY | PROVIDERS: PCP Internal Medicine; Visit Provider Student in an Organized Health Care Education/Training Program | DX: M05.79 Rheumatoid arthritis with rheumatoid factor of multiple sites without organ or systems involvement (principal); Z11.59 Encounter for screening for other viral diseases; Z11.7 Encounter for testing for latent tuberculosis infection; Z79.899 Other long term (current) drug therapy | CPT/HCPCS: 99212 ==

== ENCOUNTER 2023-10-15 09:53 | Outpatient (REF) | payer OTHER, SELFPAY ==
[2023-10-15 10:42] LABS: MANUAL DIFF FLAG NO
[2023-10-15 10:56] LABS: Basophils Absolute Auto 0.1 X10*3/uL (0.0-0.2); Basophils Percent Auto 1.1 % (0-2); Eosinophils Absolute Auto 0.3 X10*3/uL (0.0-0.4); Eosinophils Percent Auto 4.3 % (0-4); Hematocrit 42.4 % (37.0-47.0); Hemoglobin 13.6 g/dl (12.0-16.0); Imm Gran Abs Auto 0.03 X10*3/uL (0.00-0.03); Imm Gran Pct Auto 0.4 % (0.0-0.4); Lymphocytes Absolute Auto 1.8 X10*3/uL (1.2-4.9); Lymphocytes Percent Auto 22.8 % (20-40); Mean Corpuscular HGB Conc 32.1 g/dl (31.0-35.0); Mean Corpuscular Hemoglobin 32.4 pg (27.0-33.0); Mean Platelet Volume 11.4 fL (9.4-12.3); Monocytes Absolute Auto 0.6 X10*3/uL (0.1-1.2); Monocytes Percent Auto 6.9 % (2-11); Neutrophils Absolute Auto 5.1 x10*3/uL (2.0-8.3); Neutrophils Percent Auto 64.5 % (45-73); Platelet Count 238 X10*3/uL (160-400); Red Cell Distribution Width 12.8 % (11.0-16.0); White Blood Count 7.9 X10*3/uL (4.8-10.8)
[2023-10-15 11:26] LABS: Erythrocyte Sedimentation Rate 42 MM/HR (0-20)
[2023-10-15 12:00] LABS: Alanine Aminotransferase 14 U/L (0-31); Albumin Level 3.8 g/dL (3.5-5.0); Alkaline Phosphatase 70 U/L (39-117); Anion Gap 12 (12-20); Aspartate Amino Transferase 19 U/L (5-31); Bilirubin Total 0.3 mg/dL (0.0-1.0); Blood Urea Nitrogen 33 mg/dL (9-16); Calcium 9.8 mg/dL (8.4-10.2); Carbon Dioxide 29 mmol/L (22-29); Chloride 105 mmol/L (96-108); Estimated Glomerular Filt Rate 54; Glucose Random 115 mg/dL (60-115); Potassium 4.3 mmol/L (3.3-5.1); Sodium 142 mmol/L (135-145); Total Protein 7.1 g/dL (6.5-8.0)
[2023-10-16 08:50] LABS: HBS Num1 0.34 mIU/mL (0-7.99); HBsAGNum1 0.31 S/CO (0.00-0.99); Hepatitis A Antibody IgM 0.13 Index (0-0.79); Hepatitis B Core Antibody Nonreactive (Nonreactive); Hepatitis B Surface Antigen Negative (Negative); ~HepC Num1 0.07 S/CO (0.00-0.79); ~Hepatitis A Antibody IgM Nonreactive (Nonreactive); ~Hepatitis B Surface Antibody NONREACTIVE (Nonreactive); ~Hepatitis C Antibody Nonreactive (Nonreactive)
[2023-10-18 08:58] LABS: TS Negative Control Passed; TS Panel A 0; TS Panel B 0; TS Positive Control Passed; TSpotTB Negative (Negative)
== END 2023-10-15 09:54 | disposition home or self-care (01) ==
LOC: HO.10HDL 09:53
PROVIDERS: Visit Provider Student in an Organized Health Care Education/Training Program
DX: Z11.7 Encounter for testing for latent tuberculosis infection (principal); Z11.59 Encounter for screening for other viral diseases; M05.79 Rheumatoid arthritis with rheumatoid factor of multiple sites without organ or systems involvement; Z72.89 Other problems related to lifestyle
CPT/HCPCS: 36415; 80053; 85025; 85652; 86140; 86481; 86704; 86706; 86709; 86803; 87340

== ENCOUNTER 2023-12-05 08:24 | Outpatient (AMB) | payer OTHER, SELFPAY ==
[2023-12-05 08:28] VITALS: BP 132/64; PULSE 61; O2SAT 98; BMI 27.3
--- NOTE | 2023-12-05 08:28 | A.OFFVIS_ITS ---
Vital Signs 12/05/23 08:28 Height 5 ft 6 in Weight 169 lb 5.04 oz BMI 27.3 BP 132/64 Blood Pressure Location Rt brachial Position Sitting Pulse 61 Pulse Source Pulse Oximeter Pulse Oximetry (%) 98 Oxygen Delivery Method Room Air Intake Visit Reasons: RA/LVM Intake Note: Pt seen today for follow up. Following with cardiology- reports stress test, new med S/P surgery for lung cancer Consultant In Ergonomics And Safety Required: No Accompanied by: Self / Same As Patient Allergies fish oil Allergy (Verified 12/05/23 08:36) unknown penicillin G Allergy (Verified 12/05/23 08:36) unknown aspirin Adverse Reaction (Intermediate, Verified 12/05/23 08:36) Nausea and Vomiting methocarbamol Adverse Reaction (Intermediate, Verified 12/05/23 08:36) Nausea and Vomiting sulfasalazine Adverse Reaction (Intermediate, Verified 12/05/23 08:57) Nausea and Vomiting Medication List - Last Reconciled 12/05/23 by Danny Michel MD acetaminophen (Tylenol Extra Strength) 1,500 mg PO BID apixaban (Eliquis) 5 mg PO BID atenolol 50 mg PO DAILY buprenorphine 7.5 mcg/hour 1 patch transdermal Q7D levothyroxine 125 mcg PO DAILY lisinopril 10 mg PO DAILY multivitamin 1 tab PO DAILY simvastatin 20 mg PO BEDTIME HPI Comments Details: 72-year-old female with seropositive RA returns for follow-up. Patient is s/p right upper lobectomy for lung cancer 08/2023. She states that as far she knows she is cancer free and needs active surveillance every 6 months. She quit smoking the day of surgery and has not returned to smoking. He took sulfasalazine as prescribed for 2 and half weeks and could not tolerate it due to significant GI upset and vomiting. She is back to taking her 3 g of Tylenol daily. Most recent history by Dr. Warren 05/2023: Patient returns for evaluation of her seropositive rheumatoid arthritis. She remains on buprenorphine patches once a week for her lumbar osteoarthritis. Those seem to be doing okay. She feels like she can walk without significant problems. She does remain on ac etaminophen taking 1500 mg b.i.d.. She only occasionally gets hand or wrist pains. Most the time if she gets pain it is in her back. It seems to radiate to the buttocks. I did have her go to the eye doctor to see if we might consider hydroxychloroquine. She tells me the eye doctor felt that was not a good idea. I am not exactly sure what the pathology was but the patient was told that she had abnormalities in the eye already. I would suspect maybe this would make monitoring the hydroxychloroquine very difficult as time went on. She had recent CT scan screening for lung cancer. Another follow-up scan is scheduled for next week. [facility] Medical History Rheumatoid factor positive Lung cancer Chronic pain syndrome Sacroiliitis Sacroiliac joint dysfunction of both sides Postlaminectomy syndrome of lumbar region Surgical History S/P lobectomy of lung Hx of tonsillectomy History of total hysterectomy with bilateral salpingo-oophorectomy (BSO) H/O bilateral cataract extraction Status post right breast lumpectomy History of lumbar fusion History of back surgery Hx of appendectomy Family History Sister Breast cancer Arthritis Paternal Grandmother Breast cancer Mother Arthritis Diabetes Social History Household Members: Family Housing: [facility] Are you a primary med care manager to a significant other at home: No Do you presently have visiting nurse or other home services: No Alcohol intake: current Alcohol intake frequency: holidays/special occasions only Alcohol type: wine Patient Tobacco Use Status: Former Tobacco user Cigarettes Per Day: 5 Years Smoked: 58 years e-Cigarette/Vaping Use: Never Used service: No Current occupational status: retired 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 Review of Systems [facility] [place]ralgias, Reports joint swelling and Reports stiffness Physical Exam Vital Signs: Last Vital Signs Pulse 61 12/05/23 08:28 BP 132/64 12/05/23 08:28 Pulse Ox 98 12/05/23 08:28 Oxygen Delivery Method Room Air 12/05/23 08:28 BMI result Body Mass Index 27.3 Const General: cooperative, healthy appearing and comfortable Nutritional Appearance: overweight Orientation/consciousness: patient oriented x3 Limitations: ambulation with cane HEENT Head: Yes normocephalic and Yes atraumatic Resp Effort & Inspection: normal respiratory effort and able to speak in complete sentences Auscultation: clear to auscultation bilaterally Cardio Rate: regular rate Rhythm: regular rhythm Skin General skin exam: no rashes or lesions noted Neuro General: patient oriented x3 Extrem Other: Right wrist swelling without tenderness . Right wrist pain with flexion and extension Right hand Multiple tender flexor tendon tenderness Multiple swollen and tender right hand MCPs Significantly reduced right hand manager highway strength Left hand synovial thickening of multiple MCPs as well as tenderness Few tender flexor tendons Significantly reduced left hand manager highway strength Normal range of motion of elbows without pain Bilateral mildly reduced shoulder abduction Assessment & Plan Assessment & Plan (1) Seropositive rheumatoid arthritis of multiple joints: Comment: Onset ? 2004 ++RF -ve CCP MTX started 04/2022 -stopped 11/2022 due to nausea. hydroxychloroqine considered but eye doctor advised against use - some baseline retinal findings. SSZ 08/2023 couldn;t toerate it due to GI upset, nausea & vomiting Code(s): M05.79 - Rheumatoid arthritis with rheumatoid factor of multiple sites without organ or systems involvement Category: Medical Plan: This is a 72-year-old female with seropositive RA who presents for follow-up. Patient took sulfasalazine regularly for 2.5 weeks and stopped it due to significant GI upset nausea and vomiting. She has not on any DMARDs currently. She is on Tylenol 3 g daily. On exam she continues to have multiple swollen and tender joints. Patient needs to be on DMARDs. Patient has had seropositive RA for years and it has been poorly controlled. She could not tolerate methotrexate or sulfasalazine, index clerk advised against hydroxychloroquine use. Discussed term complications of rheumatoid arthritis including progressive deformities, cardiovascular events, cancers, (patient's lung cancer however its main risk factor is likely her history of smoking, she has quit smoking) Patient is against using any self injection medicine but to try an infusion. Discussed risks and benefits of TNF inhibitors. Will start prior authorization for [employer] before next visit in 3 months Plan I spent 35 minutes reviewing patient's chart, evaluating patient, ordering diagnostic workup, counseling patient and documenting in the chart Orders: Orders Complete Blood Count Auto Diff 3 Months M05.79 - Rheumatoid arthritis with rheumatoid factor of multiple sites without organ or systems involvement Erythrocyte Sedimentation Rate 3 Months M05.79 - Rheumatoid arthritis with rheumatoid factor of multiple sites without organ or systems involvement Comprehensive Met. Panel 3 Months M05.79 - Rheumatoid arthritis with rheumatoid factor of multiple sites without organ or systems involvement C Reactive Protein 3 Months M05.79 - Rheumatoid arthritis with rheumatoid factor of multiple sites without organ or systems involvement Coding Level of Care Code Est Pt Level 4 (48518) Diagnoses Seropositive rheumatoid arthritis of multiple joints M05.79
== END 2023-12-05 08:57 | disposition home or self-care (01) ==
PROVIDERS: PCP Internal Medicine; Referring Provider Internal Medicine; Visit Provider Student in an Organized Health Care Education/Training Program
DX: M05.79 Rheumatoid arthritis with rheumatoid factor of multiple sites without organ or systems involvement (principal)
CPT/HCPCS: 99214

== ENCOUNTER → 2023-12-05 08:24 | Outpatient (BNVA) | payer OTHER, SELFPAY | PROVIDERS: PCP Internal Medicine; Visit Provider Student in an Organized Health Care Education/Training Program | DX: M05.79 Rheumatoid arthritis with rheumatoid factor of multiple sites without organ or systems involvement (principal) | CPT/HCPCS: 99212 ==

== ENCOUNTER 2024-03-06 08:25 | Outpatient (AMB) | payer OTHER, SELFPAY ==
[2024-03-06 08:26] VITALS: BP 130/70; PULSE 71; O2SAT 97; BMI 28.4
--- NOTE | 2024-03-06 08:26 | A.OFFVIS_ITS ---
Vital Signs 03/06/24 08:26 Height 5 ft 6 in Weight 176 lb 2.389 oz BMI 28.4 BP 130/70 Blood Pressure Location Rt brachial Pulse 71 Pulse Source Pulse Oximeter Pulse Oximetry (%) 97 Oxygen Delivery Method Room Air Intake Visit Reasons: RA Intake Note: Patient last seen by Doctor Danny Michel on 12/05/23. Presents today for RA follow up and test results. Allergies fish oil Allergy (Verified 12/05/23 08:36) unknown penicillin G Allergy (Verified 12/05/23 08:36) unknown aspirin Adverse Reaction (Intermediate, Verified 12/05/23 08:36) Nausea and Vomiting methocarbamol Adverse Reaction (Intermediate, Verified 12/05/23 08:36) Nausea and Vomiting sulfasalazine Adverse Reaction (Intermediate, Verified 12/05/23 08:57) Nausea and Vomiting Medication List - Last Reconciled 03/06/24 by Danny Michel MD acetaminophen (Tylenol Extra Strength) 1,500 mg PO BID apixaban (Eliquis) 5 mg PO BID atenolol 50 mg PO DAILY buprenorphine 7.5 mcg/hour 1 patch transdermal Q7D levothyroxine 125 mcg PO DAILY lisinopril 10 mg PO DAILY multivitamin 1 tab PO DAILY simvastatin 20 mg PO BEDTIME HPI Comments Details: 73-year-old female with seropositive RA returns for follow-up. She has received the 1st 2 loading doses of Simponi. States that the infusion was uneventful. Has not had any side effects. Has not had any recent illnesses. She states that she has doing about the same overall. She felt that when the infusions were 4 weeks apart she felt better now that they were spaced to every 8 weeks she is feeling slightly worse. She states however that the swelling of her wrists and hands is improving. She can put her rings on now [facility] Medical History Rheumatoid factor positive Lung cancer Chronic pain syndrome Sacroiliitis Sacroiliac joint dysfunction of both sides Postlaminectomy syndrome of lumbar region Surgical History S/P lobectomy of lung Hx of tonsillectomy History of total hysterectomy with bilateral salpingo-oophorectomy (BSO) H/O bilateral cataract extraction Status post right breast lumpectomy History of lumbar fusion History of back surgery Hx of appendectomy Family History Sister Breast cancer Arthritis Paternal Grandmother Breast cancer Mother Arthritis Diabetes Social History Household Members: Family Housing: [facility] Are you a primary healthcare management consultant to a significant other at home: No Do you presently have visiting nurse or other home services: No Alcohol intake: current Alcohol intake frequency: holidays/special occasions only Alcohol type: wine Patient Tobacco Use Status: Former Tobacco user Cigarettes Per Day: 5 Years Smoked: 58 years e-Cigarette/Vaping Use: Never Used service: No Current occupational status: retired 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 Systems [employer] Reports arthralgias and Denies joint swelling Physical Exam Vital Signs: Last Vital Signs Pulse 71 03/06/24 08:26 BP 130/70 03/06/24 08:26 Pulse Ox 97 03/06/24 08:26 Oxygen Delivery Method Room Air 03/06/24 08:26 BMI result Body Mass Index 28.4 Const General: cooperative, healthy appearing and comfortable Nutritional Appearance: overweight Orientation/consciousness: patient oriented x3 Limitations: ambulation with cane HEENT Head: Yes normocephalic and Yes atraumatic Resp Effort & Inspection: normal respiratory effort and able to speak in complete sentences Cardio Rate: regular rate Rhythm: regular rhythm Skin General skin exam: no rashes or lesions noted Neuro General: patient oriented x3 Extrem Other: Significantly improved right wrist swelling, no tenderness, no pain with flexion-extension Right hand, no flexor tendon tenderness No swelling of MCPs bilaterally Left hand synovial thickening of multiple MCPs but no tenderness Flexor tendons not tender left hand Significantly reduced bilateral hand driver examiner strength Normal range of motion of elbows without pain Assessment & Plan Assessment & Plan (1) Seropositive rheumatoid arthritis of multiple joints: Comment: Onset ? 2004 ++RF -ve CCP MTX started 04/2022 -stopped 11/2022 due to nausea. hydroxychloroqine considered but eye doctor advised against use - some baseline retinal findings. SSZ 08/2023 couldn;t toerate it due to GI upset, nausea & vomiting Simponi Aria infusions 12/2023: Effective Code(s): M05.79 - Rheumatoid arthritis with rheumatoid factor of multiple sites without organ or systems involvement Category: Medical Plan: This is a 73-year-old female with seropositive RA who presents for follow-up. She received the 1st 2 loading doses of Simponi Aria. Well-tolerated. No reported side effects. On exam she is better. There is less swollen and tender joints. Continue with Simponi Aria infusions Labs today and before next visit in 3 months Plan I spent 25 minutes reviewing patient's chart, evaluating patient, ordering diagnostic workup, counseling patient and documenting in the chart Orders: Orders Complete Blood Count Auto Diff 3 Months M05.79 - Rheumatoid arthritis with rheumatoid factor of multiple sites without organ or systems involvement, Z79.899 - Other long filler cigar roller machine (current) drug therapy Erythrocyte Sedimentation Rate 3 Months M05.79 - Rheumatoid arthritis with rheumatoid factor of multiple sites without organ or systems involvement, Z79.899 - Other long filler cigar roller machine (current) drug therapy Comprehensive Met. Panel 3 Months M05.79 - Rheumatoid arthritis with rheumatoid factor of multiple sites without organ or systems involvement, Z79.899 - Other long filler cigar roller machine (current) drug therapy C Reactive Protein 3 Months M05.79 - Rheumatoid arthritis with rheumatoid factor of multiple sites without organ or systems involvement, Z79.899 - Other long filler cigar roller machine (current) drug therapy Coding Level of Care Code Est Pt Level 4 (62977) Diagnoses Seropositive rheumatoid arthritis of multiple joints M05.79
== END 2024-03-06 08:45 | disposition home or self-care (01) ==
PROVIDERS: PCP Internal Medicine; Visit Provider Student in an Organized Health Care Education/Training Program
DX: M05.79 Rheumatoid arthritis with rheumatoid factor of multiple sites without organ or systems involvement (principal)
CPT/HCPCS: 99214

== ENCOUNTER → 2024-03-06 08:25 | Outpatient (BNVA) | payer OTHER, SELFPAY | PROVIDERS: PCP Internal Medicine; Visit Provider Student in an Organized Health Care Education/Training Program | DX: M05.79 Rheumatoid arthritis with rheumatoid factor of multiple sites without organ or systems involvement (principal) | CPT/HCPCS: 99212 ==

== ENCOUNTER 2024-03-11 08:40 | Outpatient (REF) | payer OTHER, SELFPAY ==
[2024-03-11 09:02] LABS: MANUAL DIFF FLAG NO
[2024-03-11 09:21] LABS: Basophils Absolute Auto 0.1 X10*3/uL (0.0-0.2); Basophils Percent Auto 1.5 % (0-2); Eosinophils Absolute Auto 0.2 X10*3/uL (0.0-0.4); Eosinophils Percent Auto 3.9 % (0-4); Hematocrit 39.8 % (37.0-47.0); Hemoglobin 12.7 g/dl (12.0-16.0); Imm Gran Abs Auto 0.02 X10*3/uL (0.00-0.03); Imm Gran Pct Auto 0.3 % (0.0-0.4); Lymphocytes Absolute Auto 1.6 X10*3/uL (1.2-4.9); Lymphocytes Percent Auto 27.7 % (20-40); Mean Corpuscular HGB Conc 31.9 g/dl (31.0-35.0); Mean Corpuscular Hemoglobin 32.4 pg (27.0-33.0); Mean Corpuscular Volume 101.5 fL (80.0-98.0); Mean Platelet Volume 10.5 fL (9.4-12.3); Monocytes Absolute Auto 0.7 X10*3/uL (0.1-1.2); Monocytes Percent Auto 11.2 % (2-11); Neutrophils Absolute Auto 3.3 x10*3/uL (2.0-8.3); Neutrophils Percent Auto 55.4 % (45-73); Platelet Count 193 X10*3/uL (160-400); Red Blood Count 3.92 X10*6/uL (4.20-5.50); White Blood Count 5.9 X10*3/uL (4.8-10.8)
[2024-03-11 10:01] LABS: Erythrocyte Sedimentation Rate 22 MM/HR (0-20)
[2024-03-11 10:22] LABS: Alanine Aminotransferase 27 U/L (0-31); Albumin Level 3.9 g/dL (3.5-5.0); Alkaline Phosphatase 58 U/L (39-117); Anion Gap 14 (12-20); Aspartate Amino Transferase 27 U/L (5-31); Bilirubin Total 0.5 mg/dL (0.0-1.0); Blood Urea Nitrogen 26 mg/dL (9-16); C Reactive Protein < 0.10 mg/dL (< or = 0.50); Calcium 9.8 mg/dL (8.4-10.2); Carbon Dioxide 26 mmol/L (22-29); Chloride 107 mmol/L (96-108); Estimated Glomerular Filt Rate 47; Glucose Random 95 mg/dL (60-115); Potassium 4.9 mmol/L (3.3-5.1); Sodium 142 mmol/L (135-145); Total Protein 6.9 g/dL (6.5-8.0)
== END 2024-03-11 08:41 | disposition home or self-care (01) ==
LOC: HO.LAB 08:40
PROVIDERS: Visit Provider Student in an Organized Health Care Education/Training Program
DX: M05.79 Rheumatoid arthritis with rheumatoid factor of multiple sites without organ or systems involvement (principal); Z79.899 Other long term (current) drug therapy
CPT/HCPCS: 36415; 80053; 85025; 85652; 86140

== ENCOUNTER 2024-06-09 07:57 | Outpatient (AMB) | payer OTHER, SELFPAY ==
--- OUTSIDE RECORDS SUMMARY | 2024-06-09 07:59 | XMS_ITS ---
Author Organization [facility] Ralf Villatoro Address [address] [place] [address] Care Team Providers Care [employer] Ax Consultant Name Role Phone Clara Nelson Primary Care Provider UnavailDeidra Padilla Unavailable [phone] Allergies Allergen (clinical drug ingredient) Drug/Non Drug Allergy documented on EMR Reaction Allergy Type Onset Date Status aspirin Aspirin Unknown Drug Allergy Active Penicillin Unknown Drug Allergy Active REASON FOR VISIT At Risk Footcare, Skin problem(s), Toe Irritation Medications Medication SIG (Take, Route, Frequency, Duration) Notes Start Date End Date Status Buprenorphine 7.5 MCG/HR 1 patch to skin Transdermal 07/04/2023 Active Ammonium Lactate 12 % 1 application Exte rnally Twice a day for 30 days Active Simvastatin 20 MG Oral for 90 Days Active Levothyroxine Sodium 125 MCG Oral for 90 Days Active Atenolol 50 MG Oral for 90 Days Active Lisinopril 10 MG Oral for 90 Days Active Social History Tobacco Use: Social History Observation Description Date Details (start date - stop date) Current Smoker NA - NA Tobacco Use/Smoking Question Answer Notes Are you a: current smoker How often do you smoke cigarettes? every day How many cigarettes a day do you smoke? 11-20 How soon after you wake up do you smoke your fir st cigarette? 31-60 minutes Alcohol Screen Question Answer Notes Did you have a drink containing alcohol in the p ast year? No Points 0 Interpretation Negative Tobacco use other than smoking: Question Answer Notes Are you an other tobacco user? No Problems Problem Type SNOMED Code ICD Code Onset Dates Problem Status W/U Status Risk Notes Problem Polyneuropathy due to type 2 diabetes mellitus (185149958) Type 2 diabetes mellitus with diabetic polyneuropathy (E11.42) Active confirmed Problem Acquired hammer toe of right foot (4047771349644619 ) Other hammer toe(s) (acquired), right foot (M20.41) Active confirmed Problem Acquired hammer toe of left foot (7467477020869574 ) Other hammer toe(s) (acquired), left foot (M20.42) Active confirmed Vital Signs Height 5 ft 6 in in 08/16/2023 Weight 170 lbs 08/16/2023 BMI 27.44 kg/m2 08/16/2023 Blood pressure systolic 120 mm Hg 08/16/19 24 Blood pressure diastolic 80 mm Hg 024 Procedures Procedure Date Ordered Date Performed Result Body Sit e 45545-ROIMISI NAIL, 6 OR MORE 08/16/2023 N/A 14474-EIQQ SKIN LESIONS, 2 TO 4 08/16/2023 N/A Encounters Encounter Location Date Provider Diagnosis [facility] [place] [address] [place] [address] 08/16/2023 Deidra Black Type 2 diabetes mellitus with diabetic polyneuropathy E11.42 ; Other hammer toe(s) (acquired), right foot M20.41 ; Tinea unguium B35.1 ; Xerosis of skin L85.3 ; Other hammer toe(s) (acquired), left foot M20.42 and Current smoker F17.200 Assessments Encounter Date Diagnosis (ICD Code) Assessment Notes Treatment Notes Treatment Clinical Notes Section Notes 08/16/2023 Type 2 diabetes mellitus with diabetic polyneuropathy (ICD-10 - E11.42) 08/16/2023 Other hammer toe(s) (acquired), right foot (ICD-10 - M20.41) Patient Educated with: DIABETIC FOOT CARE INSTRUCTIONS. pdf (DIABETIC FOOT CARE INSTRUCTIONS. pdf) 08/16/2023 Tinea unguium (ICD-10 - B35.1) 08/16/2023 Xerosis of skin (ICD-10 - L85.3) 08/16/2023 Other hammer toe(s) (acquired), left foot (ICD-10 - M20.42) 08/16/2023 Current smoker (ICD-10 - F17.200) Plan Of Treatment Medication Medication Name Sig Start Date Stop Date Notes Ammonium Lactate 12 % 1 application Exte rnally Twice a day for 30 days Treatment Notes Assessment Notes Other hammer toe(s) (acquired), right fo ot Patient Educated with: DIABETIC FOOT CARE INSTRUCTIONS.pdf (DIABETIC FOOT CARE INSTRUCTIONS.pdf) Pending Test Test Name Order Date 43791-JFHQPRZ NAIL, 6 OR MORE 08/16/2023 37753-YXAN SKIN LESIONS, 2 TO 4 08/16/19 24 Next Appt Details Follow Up: prn, Reason: Provider Name:Deidra Almodovar , 06/26/2024 08:15:00 AM, [address] [place], [address], Procedure Notes * Category Sub-Category Detail Notes Debride Nail 6-10 Nail debridement Nail debridem ent performed extensively to reduce/remove overall nail length, girth, thickness, subungual debris, and necrotic tissue, by manual and electrical means through the use of a nail nipper and/or dremel, to more viable healthy nail plate or bed tissue 1-5. Silver nitrate used for any petechial bleeding as necessary. Patient chooses, no pharmaceutical tx () Keratoma Treatment Parring or Cutting o f Benign Hyperkeratotic Lesion(s) 73967 ( 2-4 Lesions ) - The Benign hyperkeratotic lesions, as described above were pared, and/or cut utilizing a sterile 15 blade, tissue nippers, and/or dremel, Progress Notes * Julio C AVERYOB:1950 (72 yo F)Acc No.[id number]:08/16/2023 Progress Notes Patient:?Tiffany Avery Provider:?Deidra Almodovar DPM :1950???Age:72 Y???Sex:Female D ate:08/16/2023 Address:[address] [place], [place] [id number] Pcp:Clara Nelson Subjective: * Chief Complaints: * ???At Risk FootcareSkin prob elsy(s)Toe Irritation * HPI: ???At Risk footcare:?Pt States Last PCP Visit:?Date?05/07/2023 ???Skin problems:?Nature:?dryness , scaling.?Location:?B/L .?Duration:?several days.?Course:?worse.?Toe pain:?Location:?B/L feet.?Duration:?several years.?Course:?worse.?Aggrevated by:?shoes, any pressure.?Treatments:?change in shoes.? * ROS:?General/Constitutional:?Nausea?denies.?Vomiting?denies.?Hunger Thirst?denies.?Loss appetite?denies.?Chills?denies.?Fatigue?denies.?Fever?denies.?Night Sweats?denies.?Unexplained weight loss?denies.?Unexplained weight gain?denies.?HEENTM:?Dentures?denies.?Dizziness?denies.?Glasses/contacts?admits.?Retinopathy?de nies.?Blurred/double vision?denies.?TMJ?denies.?Discharge/drainage?denies.?Implants?denies.?Sore throat?denies.?Dental implants?denies.?Hard of hearing ?denies.?Difficulty chewing/swallowing/speaking?denies.?Nose bleeds?denies.?Sore mouth?denies.?Respiratory:?On Oxygen?denies.?Pneumonia/pleurisy?denies.?Bronchitis?denies.?Emphysema?denies.?C oughing?denies.?Cough blood?denies.?Shortness of breath?denies.?Wheezing?denies.?Cardiovascular:?Pacemaker?denies.?MVP?denies.?WPW?denies.?CHF?denies.?Heart attack?denies.?Septal defect?denies.?Rapid beat?denies.?Chest pain ?denies.?Atrial Fib.?denies.?Murmur/Palpitations?denies.?Gastrointestinal:?Hemorrhoids?denies.?Stomach/Abdominal pain?denies.?Dark blood stool?denies.?Irritable bowel ?denies.?Constipation?denies.?Diarrhea?denies.?Hematology:?Swelling?denies.?Clots?denies.?Varicose Veins?denies.?Bruising?denies.?Bleeding problem?denies.?Genitourinary:?Blood urine?denies.?Frequent/Painfu/urination/bladder control?denies.?Kidney stones?denies.?Infection (UTI)?denies.?Nephropathy?denies.?sex trans dis (STD)?denies.?Prostate?denies.?Musculoskeletal:?Hammertoes?denies.?Bunions?denies.?Back Pain?denies.?Muscle Cramps/ Resting?denies.?Muscle cramps / walking?denies.?Generalized aches and pains?denies.?Weakness?denies.?Integ.:?Cota?denies.?Scars?denies.?Corns/calluses?denies.?Ingrown nails?admits.?Painful nails?admits.?Open Sores?denies.?Rashes?denies.?Neurologic:?Difficulty sleeping?denies.?Brain disorder?denies.?Numbness?denies.?Balance trouble?denies.?Confusion?denies.?Fainting/blackouts?denies.?Tingling?denies.?Tr emors?denies.? * Medical History:? * Surgical History:?hysterecto my appendectomy back surgery colonoscopy wisdom teeth extraction Tooth extraction * Hospitalization/Major Diagno stic Procedure:?Denies Past Hospitalization * Family History:?Mother: dece ased, diagnosed with Family history of arthritis, Unspecified essential hypertension.?Father: .?Siblings: diagnosed with Other malignant neoplasm of unspecified site.? * Social History:?Tobacco Use:?Tobacco Use/Smoking?Are you a:?current smoker ?How often do you smoke cigarettes??every day ?How many cigarettes a day do you smoke??11-20 ?How soon after you wake up do you smoke your first cigarette??31-60 minutes ?Tobacco use other than smoking?Are you an other tobacco user??No ???Drugs/Alcohol:?Drugs?Have you used drugs other than those for medical reasons in the past 12 months??No ?Alcohol Screen?Did you have a drink containing alcohol in the past year??No ?Points?0 ?Interpretation?Negative ???Miscellaneous:?Caffeine: yes, 2-3 cups per day. ?Children: yes, 1. ?Exercise: yes, walking. ?Marital status: . 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 * Medications:?TakingSimvastat in 20 MG Tablet Oral Levothyroxine Sodium 125 MCG Tablet Oral Atenolol 50 MG Tablet Oral Lisinopril 10 MG Tablet Oral Buprenorphine 7.5 MCG/HR Patch Weekly 1 patch to skin Transdermal Medication List reviewed and reconciled with the patientTaking Simvastatin 20 MG Tablet Oral Taking Levothyroxine Sodium 125 MCG Tablet Oral Taking Atenolol 50 MG Tablet Oral Taking Lisinopril 10 MG Tablet Oral Taking Buprenorphine 7.5 MCG/HR Patch Weekly 1 patch to skin Transdermal Medication List reviewed and reconciled with the patient * Allergies:?PenicillinAspirin yes[Allergies Verified] Objective: * Vitals:?Ht: 5 ft 6 in, Wt:17 0, BMI:27.44, Shoe size: 9, BP:120/80 mm Hg, BS: not taken, Ht-cm: 167.64 cm, Wt-k.11 kg. * Examination: ???Ophthalmology Referral: ?DIABETES EYE EXAM?Neurological: ?SENSORY:? Neurological exam demonstrates, reduced light touch sensation, reduced sharp/dull pin prick discrimination , B/L, 5.07 monofilament test performed at plantar aspects of 5 varied sites per foot shows sensation, reduced , B/L.?Nails: ?NAILS are:?Elongated, overgrown, dystrophic, lytic, greater than 3mm thick, discolored and friable with crumbly malodorous subungual debris , with dull to no pain on palpation due to neuropathy , 1-5 B/L.?Dermatologic: ?SKIN FINDINGS:?Skin exam reveals Keratotic lesion(s) located at , Heel(s) B/L, Skin shows sign(s) of, dryness, scaling, in a stocking fashion, no fissure(s) present, B/L.?Vascular: ?DP PULSES:?06/21 , B/L.?PT PULSES:?06/21 , B/L.?CAPILLARY FILL TIME:?delayed, all digits, B/L.?SKIN TEMPERTURE GRADIENT OF THE LOWER EXTERMITIES:?decreased, cool to cool, proximal to distal, B/L.?HAIR GROWTH/TEXTURE/ELASTICITY/TURGOR:?sparce hair growth.?PIGMENTATION:?normal, B/L.?EDEMA:?/ , non-pitting , B/L.?Orthopedic: ?DIGITAL DEFORMITIES:?Digital contracture, PIPJ, 2-5 B/L, incompl-reducible to push-up test, no over, nor underlapping, with evidence of shoe producing skin irritation.?FOOTWEAR:?worn, non-supportive, shoe gear properties exacerbate patient's foot/toe deformity ,?.?General Examination: ?FOOT EXAM:?Footwear Evaluation? Assessment: * Assessment: 1.?Type 2 diabetes mellitus with diabetic polyneuropathy - E11.42?2.?Other hammer toe(s) (acquired), right foot - M20.41 (Primary), Chronic problem, Worse (4),Rx Management (4)?3. Tinea unguium - B35.1?4.?Xerosis of skin - L85.3, Acute problem, Uncomplicated (3),Rx Management (4)?5.?Other hammer toe(s) (acquired), left foot - M20.42, Chronic problem, Worse (4),Rx Management (4)?6.?Current smoker - F17.200? Plan: * Treatment: 2.?Type 2 diabetes mellitus with diabetic polyneuropathy?Procedure: 18226-UZLY SKIN LESIONS, 2 TO 4 3.?Tinea unguium?Procedure: 31590-AUGMJJJ NAIL, 6 OR MORE 4.?Xerosis of skin? Start Ammonium Lactate Cream, 12 %, 1 application, Externally, Twice a day, 30 days, 60, Refills 2.?? * Procedures:?Debride Nail 6-10:?Nail debridement?Nail debridement performed extensively to reduce/remove overall nail length, girth, thickness, subungual debris, and necrotic tissue, by manual and electrical means through the use of a nail nipper and/or dremel, to more viable healthy nail plate or bed tissue 1-5. Silver nitrate used for any petechial bleeding as necessary. Patient chooses, no pharmaceutical tx (54126).?Keratoma Treatment:?Parring or Cutting of Benign Hyperkeratotic Lesion(s)?69782 ( 2-4 Lesions ) - The Benign hyperkeratotic lesions, as described above were pared, and/or cut utilizing a sterile 15 blade, tissue nippers, and/or dremel, ?.? * Procedure Codes:?23734 DEBRI DE NAIL, 6 OR MORE, Modifiers: XS 62642 TRIM SKIN LESIONS, 2 TO 4, Modifiers: XS * Preventive Medicine:? ??Counseling:?Tobacco use:?Type of Tobacco Use Cessation Counseling provided?Smoking cessation assistance ?Patient counseled on the dangers of smoking and urged to quit:?08/16/2023 ?Discussion:?-04: Office or other outpatient visit for the evaluation and management of a new patient, which required a medically appropriate history and/or examination and MODERATE level of DECISION MAKING for: 1 OR MORE CHRONIC PROBLEM(S) THATS WORSENING, 2 STABLE CHRONIC PROBLEMS, A NEWLY DIAGNOSED PROBLEM WITH UNCERTAIN PROGNOSIS, AN ACUTE COMPLICATED INJURY WITH MULTIPLE TREATMENT OPTIONS, OR AN ACUTE PROBLEM WITH ACCOMPANYING SYSTEMIC SYMPTOMS, THAT POSE(S) A MODERATE RISK OF MORBIDITY. THIS CONDITION MAY ALSO INCLUDE RX DRUG MANAGEMENT, OR A DECISON FOR MINOR SURGERY. The visit on the day of the encounter encompassed interpreting the data and educating the patient as to the nature of their condition, treatment options available according to their individual PMH, meds, allergies, and overall health/living conditions, as well as any potential risks or complications that may occur from a failure to adhere to, and participate in, the recommended course of therapy. The discussion included a complete verbal, and/or written explanation of the examination results, any x-rays taken, the proposed diagnosis, and outline of the treatment plan. A schedule for future care needs was also explained. The patient verbalized an understanding of the instructions at this time and agreed to be an active participant in their treatment. If the patient should think of any questions or concerns after the visit, I have encouraged the patient to call the office.?Digital Treatment:?HT- I explained to the patient the possible etiologies of Hammertoes, including genetics/foot type/shoegear/activity level/exercise routine and the risks/benefits of all the different treatment options for their pain including: No treatment at all, Rest, Ice, New/supportive/wider/deeper Shoegear, Digital Padding/Strapping/Taping/Bracing/Gel protective sleeves, Foot/Ankle AFO Bracing, Stretching exercises, Deep Tissue Massage, Arch support/shoe inserts with splay metatarsal padding, and Custom orthoses. I insisted that any digital devices be removed daily and not worn overnight for safety. The patient is to carefully examine the toes daily for any skin irritation while using any splinting or padding device. The advantages and disadvantages of each option were discussed and the patients questions re: shoegear, padding, custom vs prefabricated inserts, activity level, and consistency in home treatment regimens for optimal success were answered to their verbally confirmed satisfaction.?Xerosis:?The patient was counseled on the diagnosis, potential etiologies, and treatment options for their skin condition. We discussed the risks and benefits of each option from performing no treatment, to utilizing OTC topical skin creams/ointments, to utilizing prescription topical creams/ointments, to utilizing customized compounded topical medications and use of nocturnal occlusion with any/all previously detailed therapies. We discussed the advantages and disadvantages of each possible treatment and importance for adherence to all the recommended therapies for optimum success and avoid potential complications such as open sore/infection/possible hospitalization. We discussed the potential effectiveness of each topical preparation as well as each ones possible side effects and/or patient medication interactions. Patient questions re: use, dosage, successful outcomes, and application consistency were reviewed and the patient verbalized that all answers were clearly understood. The patient has decided to apply Rx skin creams to their feet save the interspaces while paying special attention to the heels. Such was sent to their pharmacy at the time of visit.? * Follow Up:?prn * Images: * Sign off status: Completed true * Provider:?Deidra Almodovar DPM Date:?2023 Generated for Raymon hurtado/Natalya/Shaun on:?06/09/2024 07:59 AM EST History and Physical Notes * HPI (History of Present Illness) Category Sub-Category Detail Notes Category Not es Toe pain Location: B/L feet Duration: several years Course: worse Aggravated by: shoes, any pressure Treatments: change in shoes Skin problems Nature: dryness , scaling Location: B/L Duration: several days Course: worse At Risk footcare Pt States Last PCP Visit: Date: 3 Examination Category Sub-Category Detail Notes Category Not es Neurological SENSORY: Neurological exa m demonstrates, reduced light touch sensation, reduced sharp/dull pin prick discrimination , B/L, 5.07 monofilament test performed at plantar aspects of 5 varied sites per foot shows sensation, reduced , B/L Dermatologic SKIN FINDINGS: Skin exam reveal s Keratotic lesion(s) located at , Heel(s) B/L, Skin shows sign(s) of, dryness, scaling, in a stocking fashion, no fissure(s) present, B/L Orthopedic FOOTWEAR: worn, non-suppor tive, shoe gear properties exacerbate patient's foot/toe deformity , DIGITAL DEFORMITIES: Digital contracture , PIPJ, 2-5 B/L, incompl-reducible to push-up test, no over, nor underlapping, with evidence of shoe producing skin irritation General Examination FOOT EXAM: Lower Extrem ity Neurological Exam performed:: Yes Footwear Evaluation Footwear Evaluation performe d:: Yes Ophthalmology Referral DIABETES EYE EXAM Diabetic Retinopa thy Screening:: Yes Findings of Diabetic Eye Exam:: no retin opathy Vascular DP PULSES (B): 1/4 , B/L PT PULSES (B): 1/4 , B/L CAPILLARY FILL TIME: delayed, all digits , B/L TEMPERTURE GRADIENT (C): decreased, cool to cool, proximal to distal, B/L TROPHIC CONDITION-TEXTURE/ELASTICITY/TURGOR/HAIR GROWTH (B): sparce hair growth EDEMA (C): 1/4 , non-pitting , B/L PIGMENTATION: normal, B/L Nails NAILS are: Elongated, overg rown, dystrophic, lytic, greater than 3mm thick, discolored and friable with crumbly malodorous subungual debris , with dull to no pain on palpation due to neuropathy , 1-5 B/L
--- OUTSIDE RECORDS SUMMARY | 2024-06-09 07:59 | XMS_ITS ---
Author Organization [facility] Ralf Villatoro Address [address] [place] [address] Care Team Providers Care Special Service Representative Name Role Phone Clara Nelson Primary Care Provider Unavailtalon e Deidra Almodovar Unavailable [phone] Allergies Allergen (clinical drug ingredient) Drug/Non Drug Allergy documented on EMR Reaction Allergy Type Onset Date Status aspirin Aspirin Unknown Drug Allergy Active Penicillin Unknown Drug Allergy Active REASON FOR VISIT At Risk Footcare, Skin problem(s), Toe Irritation Medications Medication SIG (Take, Route, Frequency, Duration) Notes Start Date End Date Status Lisinopril 10 MG Oral for 90 Days Active Atenolol 50 MG Oral for 90 Days Active Levothyroxine Sodium 125 MCG Oral for 90 Days Active Ammonium Lactate 12 % 1 application Exte rnally Twice a day for 30 days Active Buprenorphine 7.5 MCG/HR 1 patch to skin Transdermal 07/04/2023 Active Simvastatin 20 MG Oral for 90 Days Active Extra Depth Orthopedic Shoes (1 Pair) with Customized Heat Molded Multidensity Innersoles (3 Pair) as directed Dx: NIDDM/Polyneuropathy (E11.42), Hammertoe Foot Deformity (M20.41,M20.42), Preulcerative Skin Lesion(s) (L85.1 11/15/2023 Active Social History Tobacco Use: Social History Observation Description Date Details (start date - stop date) Former Smoker NA - NA Tobacco Use/Smoking Question Answer Notes Are you a: former smoker Additional Findings: Tobacco Non-User Current no n-smoker Alcohol Screen Question Answer Notes Did you have a drink contain ing alcohol in the past year? Yes How often did you have a dri nk containing alcohol in the past year? Monthly or less (1 point) Points 1 Interpretation Negative Tobacco use other than smoking: Question Answer Notes Are you an other tobacco user? No Vital Signs Height 5ft6in in 11/15/2023 Weight 170 lbs 11/15/2023 BMI 27.44 kg/m2 11/15/2023 Blood pressure systolic 120 mm Hg 11/15/19 24 Blood pressure diastolic 80 mm Hg 024 Procedures Procedure Date Ordered Date Performed Result Body Sit e 74704-XMLMXVH NAIL, 6 OR MORE 11/15/2023 N/A 24206-YEGQ SKIN LESIONS, 2 TO 4 11/15/2023 N/A Encounters Encounter Location Date Provider Diagnosis [facility] [address] [place] [address] 11/15/2023 Deidra Black Type 2 diabetes mellitus with diabetic polyneuropathy E11.42 ; Other hammer toe(s) (acquired), right foot M20.41 ; Xerosis of skin L85.3 ; Other hammer toe(s) (acquired), left foot M20.42 ; Tinea unguium B35.1 and Former smoker Z87.891 Assessments Encounter Date Diagnosis (ICD Code) Assessment Notes Treatment Notes Treatment Clinical Notes Section Notes 11/15/2023 Type 2 diabetes mellitus with diabetic polyneuropathy (ICD-10 - E11.42) 11/15/2023 Other hammer toe(s) (acquired), right foot (ICD-10 - M20.41) Patient Educated with: DIABETIC FOOT CARE INSTRUCTIONS. pdf (DIABETIC FOOT CARE INSTRUCTIONS. pdf) 11/15/2023 Xerosis of skin (ICD-10 - L85.3) 11/15/2023 Other hammer toe(s) (acquired), left foot (ICD-10 - M20.42) 11/15/2023 Tinea unguium (ICD-10 - B35.1) 11/15/2023 Former smoker (ICD-10 - Z87.891) Plan Of Treatment Medication Medication Name Sig Start Date Stop Date Notes Extra Depth Orthopedic Shoes (1 Pair) with Customized Heat Molded Multidensity Innersoles (3 Pair) as directed Dx: NIDDM/Polyneuropathy (E11.42), Hammertoe Foot Deformity (M20.41,M20.42), Preulcerative Skin Lesion(s) (L85.1 11/15/2023 Treatment Notes Assessment Notes Other hammer toe(s) (acquired), right fo ot Patient Educated with: DIABETIC FOOT CARE INSTRUCTIONS.pdf (DIABETIC FOOT CARE INSTRUCTIONS.pdf) Pending Test Test Name Order Date 30694-AIVZEYG NAIL, 6 OR MORE 11/15/2023 04520-SJOD SKIN LESIONS, 2 TO 4 11/15/19 24 Next Appt Details Follow Up: prn, Reason: Provider Name:Deidra Almodovar , 06/26/2024 08:15:00 AM, [address] [place], [address], Procedure Notes * Category Sub-Category Detail Notes [...] or Cutting o f Benign Hyperkeratotic Lesion(s) 81282 ( 2-4 Lesions ) - The Benign hyperkeratotic lesions, as described above were pared, and/or cut utilizing a sterile 15 blade, tissue nippers, and/or dremel, Progress Notes * Julio C AVERYOB:1950 (72 yo F)Acc No.[id number]:11/15/2023 Progress Note Patient:?Naomy Averylene Provider:?Deidra Almodovar DPM :1950???Age:72 Y???Sex:Female D ate:11/15/2023 Address:[address] [place], [place] [id number] Pcp:Clara Nelson Subjective: * Chief Complaints: * ???At Risk FootcareSkin prob elsy(s)Toe Irritation * HPI: ???At Risk footcare:?Pt States Last PCP Visit:?Date?09/04/2023 ???Skin problems:?Nature:?dryness , scaling.?Location:?B/L .?Duration:?, a few months.?Course:?, improved , at 75%.?Treatments:?medication ( AM Lactin ).?Toe pain:?Location:?B/L feet.?Duration:?several years.?Course:?worse.?Aggrevated by:?shoes, any pressure.?Treatments:?change in [...] surgery colonoscopy wisdom teeth extraction Tooth extraction lung surgery 08/21/23 * Hospitalization/Major Diagno stic Procedure:?Denies Past Hospitalization * Family History:?Mother: dece ased, diagnosed with Family history of arthritis, Unspecified essential hypertension.?Father: .?Siblings: diagnosed with Other malignant neoplasm of unspecified site.? * Social History:?Tobacco Use:?Tobacco Use/Smoking?Are you a:?former smoker ?Additional Findings: Tobacco Non-User?Current non-smoker ?Tobacco use other than smoking?Are you an other tobacco user??No ???Drugs/Alcohol:?Drugs?Have you used drugs other than those for medical reasons in the past 12 months??No ?Alcohol Screen?Did you have a drink containing alcohol in the past year??Yes ?How often did you have a drink containing alcohol in the past year??Monthly or less (1 point) ?Points?1 ?Interpretation?Negative ???Miscellaneous:?Caffeine: yes, 1-2 cups per day. ?Children: yes, 1. ?Exercise: yes, walking. ?Marital status: . 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 * Medications:?TakingSimvastat in 20 MG Tablet Oral Levothyroxine Sodium 125 MCG Tablet Oral Atenolol 50 MG Tablet Oral Lisinopril 10 MG Tablet Oral Buprenorphine 7.5 MCG/HR Patch Weekly 1 patch to skin Transdermal Ammonium Lactate 12 % Cream 1 application Externally Twice a dayMedication List reviewed and reconciled with the patientTaking Simvastatin 20 MG Tablet Oral Taking Levothyroxine Sodium 125 MCG Tablet Oral Taking Atenolol 50 MG Tablet Oral Taking Lisinopril 10 MG Tablet Oral Taking Buprenorphine 7.5 MCG/HR Patch Weekly 1 patch to skin Transdermal Taking Ammonium Lactate 12 % Cream 1 application Externally Twice a dayMedication List reviewed and reconciled with the patient * Allergies:?PenicillinAspirin yes[Allergies Verified] Objective: * Vitals:?Ht: 5ft6in, Wt:170, BMI:27.44, Shoe size: 9-9.5, BP:120/80 mm Hg, BS: not taken, Ht-cm: [...] stocking fashion, no fissure(s) present, B/L.?Vascular: ?DP PULSES:?1/4 , B/L.?PT PULSES:?4 , B/L.?CAPILLARY FILL TIME:?delayed, all digits, B/L.?SKIN TEMPERTURE GRADIENT OF THE LOWER EXTERMITIES:?decreased, cool to cool, proximal to distal, B/L.?HAIR GROWTH/TEXTURE/ELASTICITY/TURGOR:?sparce hair growth.?PIGMENTATION:?normal, B/L.?EDEMA:?1/4 , non-pitting , B/L.?Orthopedic: ?DIGITAL DEFORMITIES:?Digital contracture, [...] (Primary), Chronic problem, Worse (4),Rx Management (4)?3. Xerosis of skin - L85.3, Response to treatment - Improvement?4.?Other hammer toe(s) (acquired), left foot - M20.42, Chronic problem, Worse (4),Rx Management (4)?5.?Tinea unguium - B35.1?6.?Former smoker - Z87.891, recently dx with lung cancer? Plan: * Treatment: 2.?Type 2 diabetes mellitus with diabetic polyneuropathy?Procedure: 40266-TTKT SKIN LESIONS, 2 TO 4 3.?Tinea unguium?Procedure: 30155-JZYCNCJ NAIL, 6 OR MORE * Procedures:?Debride Nail 6-10:?Nail debridement?Nail debridement performed extensively to reduce/remove overall nail length, girth, thickness, subungual debris, and necrotic tissue, by manual and electrical means through the use of a nail nipper and/or dremel, to more viable healthy nail plate or bed tissue 1-5. Silver nitrate used for any petechial bleeding as necessary. Patient chooses, no pharmaceutical tx (53263).?Keratoma Treatment:?Parring or Cutting of Benign Hyperkeratotic Lesion(s)?64766 ( 2-4 Lesions ) - The Benign hyperkeratotic lesions, as described above were pared, and/or cut utilizing a sterile 15 blade, tissue nippers, and/or dremel, ?.? * Procedure Codes:?47116 DEBRI DE NAIL, 6 OR MORE, Modifiers: XS 52624 TRIM SKIN LESIONS, 2 TO 4, Modifiers: XS * Preventive Medicine:? ??Counseling:?Tobacco use:?Type of Tobacco Use Cessation Counseling provided?Smoking cessation education ?Patient counseled on the dangers of smoking and urged to quit:?11/15/2023 ?Discussion:?-14: Office or other outpatient visit for the evaluation and management of an established patient, which required a medically appropriate history [...] success were answered to their verbally confirmed satisfaction, Rx: Extra Depth Diabetic Shoes with 3 pair of custom heat-molded inserts.?Xerosis:?Given recent successful results to treatment, The patient is to cont the rx cream as directed.? * Follow Up:?prn * Images: * Sign [...] Nature: dryness , scaling Location: B/L Duration: , a few months Course: , improved , at 75% Treatments: medication ( AM Lact in ) At Risk footcare Pt States Last PCP Visit: Date: 4 Examination Category Sub-Category Detail Notes Category Not [...]
--- OUTSIDE RECORDS SUMMARY | 2024-06-09 08:00 | XMS_ITS | Patient Health Record ---
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 Name Role Phone lCara Nelson Primary Care Provider Deidra Coyne Unavailable [phone] Allergies Allergen (clinical drug ingredient) Drug/Non Drug Allergy documented on EMR Reaction Allergy Type Onset Date Status aspirin Aspirin Unknown Drug Allergy Active Penicillin Unknown Drug Allergy Active Reason For Referral Diagnosis 1 Pain in unspecified foot (M79.673) Referring Provider First Name Clara Referring Provider Last Name Omar Referred [facility] Referred Provider Deidra Almodovar Referred Address [address] ,[place], [place],[address],[place] Referred Provider Specialty Podiatry Referral Priority Routine Medications Medication SIG (Take, Route, Frequency, Duration) Notes Start Date End Date Status Extra Depth Orthopedic Shoes (1 Pair) with Customized Heat Molded Multidensity Innersoles (3 Pair) as directed Dx: NIDDM/Polyneuropathy (E11.42), Hammertoe Foot Deformity (M20.41,M20.42), Preulcerative Skin Lesion(s) (L85.1 11/15/2023 Active Simvastatin 20 MG Oral for 90 Days Active Levothyroxine Sodium 125 MCG Oral for 90 Days Active Atenolol 50 MG Oral for 90 Days Active Lisinopril 10 MG Oral for 90 Days Active Buprenorphine 7.5 MCG/HR 1 patch to skin Transdermal 07/04/2023 Active Ammonium Lactate 12 % 1 application Exte rnally Twice a day for 30 days Active Immunizations Vaccine Route Administration Date Status Comme nts Influenza Unknown 02/16/2023 Administered Social History Tobacco Use: Social History Observation [...] Problem Status W/U Status Risk Notes Problem Acquired hammer toe of right foot (0676270711119273 ) Other hammer toe(s) (acquired), right foot (M20.41) Active confirmed Problem Acquired hammer toe of left foot (2872526409008710 ) Other hammer toe(s) (acquired), left foot (M20.42) Active confirmed Problem Polyneuropathy due to type 2 diabetes mellitus (414681535) Type 2 diabetes mellitus with diabetic polyneuropathy (E11.42) Active confirmed Vital Signs Blood pressure diastolic 89 mm Hg 03/10/2024 Height 5ft6in in 03/10/2024 Blood pressure systolic 130 mm Hg 03/10/2024 Weight 170 lbs 03/10/2024 BMI 27.44 kg/m2 03/10/2024 Procedures Procedure Date Ordered Date Performed Result Body Sit e 62421-GPAMNPG NAIL, 6 OR MORE 08/16/2023 N/A 61157-PUBX SKIN LESIONS, 2 TO 4 08/16/2023 N/A 40178-NLRDFNM NAIL, 6 OR MORE 11/15/2023 N/A 59029-PWGY SKIN LESIONS, 2 TO 4 11/15/2023 N/A 58408 I&D ABSCESS- SIMPLE,SINGLE 03/10/2024 N/A 78721-VPSY SKIN LESIONS, 2 TO 4 03/10/2024 N/A D1325-UCJJAYZX DYSTROPHIC NAILS ANY # 03/10/2024 N/A Encounters Encounter Location Date Provider Diagnosis [facility] [address] [place] [address] 08/16/2023 Deidra Black Type 2 diabetes mellitus with diabetic polyneuropathy E11.42 ; Other hammer toe(s) (acquired), right foot M20.41 ; Tinea unguium B35.1 ; Xerosis of skin L85.3 ; Other hammer toe(s) (acquired), left foot M20.42 and Current smoker F17.[address] [address] 11/15/2023 Deidra Almodovar Type 2 diabetes mellitus with diabetic polyneuropathy E11.42 ; Other hammer toe(s) (acquired), right foot M20.41 ; Xerosis of skin L85.3 ; Other hammer toe(s) (acquired), left foot M20.42 ; Tinea unguium B35.1 and Former smoker Z87.[address] [address] 03/10/2024 Deidra Almodovar Type 2 diabetes mellitus with diabetic polyneuropathy E11.42 ; Tinea unguium B35.1 ; Muscle cramp, nocturnal R25.2 and Abscess of toe, left L02.[address] [address] 07/04/2023 Deidra Almodovar Assessments Encounter Date Diagnosis (ICD Code) Assessment Notes Treatment Notes Treatment Clinical Notes Section Notes 08/16/2023 Type 2 diabetes mellitus with diabetic polyneuropathy (ICD-10 - E11.42) 08/16/2023 Other hammer toe(s) (acquired), right foot (ICD-10 - M20.41) Patient Educated with: DIABETIC FOOT CARE INSTRUCTIONS. pdf (DIABETIC FOOT CARE INSTRUCTIONS. pdf) 11/15/2023 Type 2 diabetes mellitus with diabetic polyneuropathy (ICD-10 - E11.42) 03/10/2024 Type 2 diabetes mellitus with diabetic polyneuropathy (ICD-10 - E11.42) 03/10/2024 Tinea unguium (ICD-10 - B35.1) 11/15/2023 Xerosis of skin (ICD-10 - L85.3) 11/15/2023 Other hammer toe(s) (acquired), right foot (ICD-10 - M20.41) Patient Educated with: DIABETIC FOOT CARE INSTRUCTIONS. pdf (DIABETIC FOOT CARE INSTRUCTIONS. pdf) 08/16/2023 Tinea unguium (ICD-10 - B35.1) 08/16/2023 Xerosis of skin (ICD-10 - L85.3) 11/15/2023 Other hammer toe(s) (acquired), left foot (ICD-10 - M20.42) 03/10/2024 Muscle cramp, nocturnal (ICD-10 - R25.2) 03/10/2024 Abscess of toe, left (ICD-10 - L02.612) Patient Educated with: WOUND CARE INSTRUCTIONS. pdf (WOUND CARE INSTRUCTIONS. pdf) 11/15/2023 Tinea unguium (ICD-10 - B35.1) 08/16/2023 Other hammer toe(s) (acquired), left foot (ICD-10 - M20.42) 08/16/2023 Current smoker (ICD-10 - F17.200) 11/15/2023 Former smoker (ICD-10 - Z87.891) 03/10/2024 Other Plan Of Treatment Pending Test Test Name Order Date 10126-NPKPZGB NAIL, 6 OR MORE 08/16/2023 10927-ZCEGKWR NAIL, 6 OR MORE 11/15/2023 22339 I&D ABSCESS- SIMPLE,SINGLE 024 05533-YMXY SKIN LESIONS, 2 TO 4 08/16/19 24 02587-ICMV SKIN LESIONS, 2 TO 4 03/10/20 24 72653-WCTT SKIN LESIONS, 2 TO 4 11/15/19 24 N5346-HWXFSMDX DYSTROPHIC NAILS ANY # Next Appt Details Provider Name:Deidra Almodovar , 06/26/2024 08:15:00 AM, [address] [facility], [place], [address], Insurance Providers Payer Name Payer Address Payer Phone Subscriber Number Group Number Insured Name Patient Relationship to Insured Coverage Start Date Coverage End Date [facility] Health Plan [address] [place], [place] [id number] Tiffany Ruelas Self - patient is the insured Medical (General) History Medical History History ICD Code Back,Hip,and Knee pain Diabetic High blood pressure Rheumatic fever thyroid Measles Mumps Chicken pox Joint implants/screws Cancer Surgical History Surgery Date(Month/Year) hysterectomy appendectomy back surgery colonoscopy wisdom teeth extraction Tooth extraction lung surgery 08/21/23
--- NOTE | 2024-06-09 08:03 | MHC.OFFVIS ---
Vital Signs 06/09/24 08:09 Height 5 ft 6 in Weight 183 lb 13.848 oz BMI 29.7 BP 130/64 Blood Pressure Location Lt brachial Position Sitting Respiration 16 Pulse 66 Pulse Source Pulse Oximeter Pulse Oximetry (%) 97 Oxygen Delivery Method Room Air Intake Visit Reasons: RA Intake Note: Patient presents for RA. Allergies fish oil Allergy (Verified 12/05/23 08:36) unknown penicillin G Allergy (Verified 12/05/23 08:36) unknown aspirin Adverse Reaction (Intermediate, Verified 12/05/23 08:36) Nausea and Vomiting methocarbamol Adverse Reaction (Intermediate, Verified 12/05/23 08:36) Nausea and Vomiting sulfasalazine Adverse Reaction (Intermediate, Verified 12/05/23 08:57) Nausea and Vomiting Medication List - Last Reconciled 06/09/24 by Danny Michel MD acetaminophen (Tylenol Extra Strength) 1,500 mg PO BID apixaban (Eliquis) 5 mg PO BID atenolol 50 mg PO DAILY buprenorphine 7.5 mcg/hour 1 patch transdermal Q7D levothyroxine 125 mcg PO DAILY lisinopril 10 mg PO DAILY multivitamin 1 tab PO DAILY simvastatin 20 mg PO BEDTIME HPI Comments Details: 73-year-old female with seropositive RA returns for follow-up. She is on Simponi Aria infusions. Well-tolerated. She states that she continues to have diffuse pain, especially in her low back and hips, particularly the left hip. [facility] Medical History Rheumatoid factor positive Lung cancer Chronic pain syndrome Sacroiliitis Sacroiliac joint dysfunction of both sides Postlaminectomy syndrome of lumbar region Surgical History S/P lobectomy of lung Hx of tonsillectomy History of total hysterectomy with bilateral salpingo-oophorectomy (BSO) H/O bilateral cataract extraction Status post right breast lumpectomy History of lumbar fusion History of back surgery Hx of appendectomy Family History Sister Breast cancer Arthritis Paternal Grandmother Breast cancer Mother Arthritis Diabetes Social History Household Members: Family Housing: Condominium Are you a primary wound care technician to a significant other at home: No Do you presently have visiting nurse or other home services: No Alcohol intake: current Alcohol intake frequency: holidays/special occasions only Alcohol type: wine Patient Tobacco Use Status: Former Tobacco user Cigarettes Per Day: 5 Years Smoked: 58 years e-Cigarette/Vaping Use: Never Used service: No Current occupational status: retired 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 Review of Systems [facility] Reports back pain, Reports arthralgias and Denies joint swelling Physical Exam Vital Signs: Last Vital Signs Pulse 66 06/09/24 08:09 Resp 16 06/09/24 08:09 BP 130/64 06/09/24 08:09 Pulse Ox 97 06/09/24 08:09 Oxygen Delivery Method Room Air 06/09/24 08:09 BMI result Body Mass Index 29.7 Const General: cooperative, healthy appearing and comfortable Nutritional Appearance: overweight Orientation/consciousness: patient oriented x3 Limitations: ambulation with cane HEENT Head: Yes normocephalic and Yes atraumatic Resp Effort & Inspection: normal respiratory effort and able to speak in complete sentences Cardio Rate: regular rate Rhythm: regular rhythm Skin General skin exam: no rashes or lesions noted Neuro General: patient oriented x3 Extrem Other: On exam there are no acutely swollen joints both hands and wrists today Normal range of motion of wrists without pain Left hand multiple MCP thickening but no acute swelling, tender left 2nd and 3rd MCPs Few tender PIPs both hand but no swelling Bilateral lower lumbar paraspinal muscle tenderness Left trochanteric bursa area tenderness Normal range of motion of elbows without pain Assessment & Plan Assessment & Plan (1) Seropositive rheumatoid arthritis of multiple joints: Comment: Onset ? 2004 ++RF -ve CCP MTX started 04/2022 -stopped 11/2022 due to nausea. hydroxychloroqine considered but eye doctor advised against use - some baseline retinal findings. SSZ 08/2023 couldn;t toerate it due to GI upset, nausea & vomiting Simponi Aria infusions 12/2023: Effective Code(s): M05.79 - Rheumatoid arthritis with rheumatoid factor of multiple sites without organ or systems involvement Category: Medical Plan: This is a 73-year-old female with seropositive RA who presents for follow-up. On Simponi Aria infusions. RA is very well controlled. No active synovitis on exam Continue with Simponi Aria infusions Labs today and before next visit in 4 months (2) Postlaminectomy syndrome of lumbar region: Code(s): M96.1 - Postlaminectomy syndrome, not elsewhere classified Category: Medical Plan: Her main complaint today is low back pain. Referred to pain management (3) intermediate designer use of drug: Code(s): Z79.899 - Other mcfp (current) drug therapy Category: Medical Plan: Side effects of Simponi were discussed with the patient in detail including increased risk of infection, demyelinating disease, reactivation of latent TB, possible increased risk of solid and skin tumors. Patient fully aware. Advised patient to seek medical care CHANDRIKA if patient has an infection and advised patient to stop the medication until the infection is resolved. Plan I spent 25 minutes reviewing patient's chart, evaluating patient, ordering diagnostic workup, counseling patient and documenting in the chart Orders: Orders Complete Blood Count Auto Diff 4 Months M05.79 - Rheumatoid arthritis with rheumatoid factor of multiple sites without organ or systems involvement, Z79.899 - Other terminal superintendent (current) drug therapy Comprehensive Met. Panel 4 Months M05.79 - Rheumatoid arthritis with rheumatoid factor of multiple sites without organ or systems involvement, Z79.899 - Other mcfp (current) drug therapy Erythrocyte Sedimentation Rate 4 Months M05.79 - Rheumatoid arthritis with rheumatoid factor of multiple sites without organ or systems involvement, Z79.899 - Other terminal superintendent (current) drug therapy C Reactive Protein 4 Months M05.79 - Rheumatoid arthritis with rheumatoid factor of multiple sites without organ or systems involvement, Z79.899 - Other mcfp (current) drug therapy Referrals Pain Management Referral M16.0 - Bilateral primary osteoarthritis of hip, M96.1 - Postlaminectomy syndrome, not elsewhere classified Coding Level of Care Code Est Pt Level 4 (39675) Complex EM visit Add On G2211 Diagnoses Seropositive rheumatoid arthritis of multiple joints M05.79 Postlaminectomy syndrome of lumbar region M96.1 intermediate designer use of drug Z79.899
[2024-06-09 08:09] VITALS: BP 130/64; PULSE 66; RESP 16; O2SAT 97; BMI 29.7
== END 2024-06-09 08:31 | disposition home or self-care (01) ==
PROVIDERS: PCP Internal Medicine; Visit Provider Student in an Organized Health Care Education/Training Program
DX: M05.79 Rheumatoid arthritis with rheumatoid factor of multiple sites without organ or systems involvement (principal); M96.1 Postlaminectomy syndrome, not elsewhere classified; Z79.899 Other long term (current) drug therapy
CPT/HCPCS: 99214

== ENCOUNTER → 2024-06-09 07:57 | Outpatient (BNVA) | payer OTHER, SELFPAY | PROVIDERS: PCP Internal Medicine; Visit Provider Student in an Organized Health Care Education/Training Program | DX: M05.79 Rheumatoid arthritis with rheumatoid factor of multiple sites without organ or systems involvement (principal); M96.1 Postlaminectomy syndrome, not elsewhere classified; Z79.899 Other long term (current) drug therapy | CPT/HCPCS: 99212 ==

== ENCOUNTER 2024-10-28 08:04 | Outpatient (AMB) | payer OTHER, SELFPAY ==
--- NOTE | 2024-10-28 08:05 | A.OFFVIS_ITS ---
Vital Signs 10/28/24 08:13 Height 5 ft 6 in Weight 196 lb 6.91 oz BMI 31.7 BP 152/80 H Blood Pressure Location Rt brachial Position Sitting Respiration 16 Pulse 53 Pulse Source Pulse Oximeter Pulse Oximetry (%) 99 Oxygen Delivery Method Room Air Intake Visit Reasons: RA Intake Note: Patient presents for RA follow up. Allergies fish oil Allergy (Verified 10/28/24 08:11) unknown penicillin G Allergy (Verified 10/28/24 08:11) unknown aspirin Adverse Reaction (Intermediate, Verified 10/28/24 08:11) Nausea and Vomiting methocarbamol Adverse Reaction (Intermediate, Verified 10/28/24 08:11) Nausea and Vomiting sulfasalazine Adverse Reaction (Intermediate, Verified 10/28/24 08:11) Nausea and Vomiting Medication List - Last Reconciled 10/28/24 by Lin Perez MD acetaminophen (Tylenol Extra Strength) 1,500 mg PO BID apixaban (Eliquis) 5 mg PO BID atenolol 50 mg PO DAILY levothyroxine 125 mcg PO DAILY lisinopril 10 mg PO DAILY multivitamin 1 tab PO DAILY simvastatin 20 mg PO BEDTIME HPI Comments Details: Patient is a 73-year-old female with hyperlipidemia, hypertension complicated by CKD stage 3, hypothyroidism, AFib on Eliquis, 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 Michel. At that time she was following up for her seropositive rheumatoid arthritis on Simponi Aria infusions. She was doing well however continued to complain of diffuse pain especially her low back and her hips. Her exam did not reveal any active synovitis and her RA was deemed to be well controlled on the Simponi Aria infusions. Her complaints were attributed to degenerative joint disease and she was sent to pain management for her back complaints. Today, Patient doing well overall with respect to her RA However, has multiple complaints with respect to her back, left hip and left knee. Feels that nothing currently is helping her OA. Has tried injections, physical therapy and medications such as Tylenol but they have not been helping. Rheumatologic History: Onset ? 2004 ++RF -ve CCP MTX started 04/2022 -stopped 11/2022 due to nausea. hydroxychloroqine considered but eye doctor advised against use - some baseline retinal findings. SSZ 08/2023 couldn;t toerate it due to GI upset, nausea & vomiting Simponi Aria infusions 12/2023: Effective Current Rheumatology Medication(s): Simponi Aria infusions every 8 weeks [facility] Medical History Rheumatoid factor positive Lung cancer Chronic pain syndrome Sacroiliitis Sacroiliac joint dysfunction of both sides Postlaminectomy syndrome of lumbar region Surgical History S/P lobectomy of lung Hx of tonsillectomy History of total hysterectomy with bilateral salpingo-oophorectomy (BSO) H/O bilateral cataract extraction Status post right breast lumpectomy History of lumbar fusion History of back surgery Hx of appendectomy Family History Sister Breast cancer Arthritis Paternal Grandmother Breast cancer Mother Arthritis Diabetes Social History Household Members: Family Housing: [facility] Are you a primary healthcare corporate account director to a significant other at home: No Do you presently have visiting nurse or other home services: No Alcohol intake: current Alcohol intake frequency: holidays/special occasions only Alcohol type: wine Patient Tobacco Use Status: Former Tobacco user Cigarettes Per Day: 5 Years Smoked: 58 years e-Cigarette/Vaping Use: Never Used service: No Current occupational status: retired 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 Review of Systems Const Details: Review of Systems Constitutional: Denies fever, chills, weight loss ENT: Denies vision changes, eye pain or eye redness, dental caries, dry mouth GI: Denies nausea, vomiting, diarrhea, abdominal pain, change in BM Pulm: Denies SOB, PEDERSON, hemoptysis, wheezing Cards: Denies chest pain, palpitations Skin: Denies Raynaud's, rash, nail changes, photosensitivity, [employer]: Denies headaches, weakness, paresthesias, recurrent falls MSK: as per HPI All other systems reviewed and are unremarkable except noted above Physical Exam Vital Signs: Last Vital Signs Pulse 53 10/28/24 08:13 Resp 16 05/13/25 08:13 BP 152/80 H 10/28/24 08:13 Pulse Ox 99 10/28/24 08:13 Oxygen Delivery Method Room Air 10/28/24 08:13 BMI result Body Mass Index 31.7 Vital signs reviewed Physical Examination CONSTITUITIONAL Patient alert and cooperative. Well appearing and in no apparent painful distress HEENT Conjunctiva and sclera clear. ?Pupils equal round and reactive to light. ?No lymphadenopathy. ? CHEST/RESPIRATORY SYSTEM Normal respiratory effort and able to speak in complete sentences. ?Clear to auscultation bilaterally. ?No crackles, rales, rhonchi, wheezes heard. CARDIAC SYSTEM Regular rate and rhythm. ?S1 and S2 heard no murmurs. ?Radial pulses intact bilaterally MSK Hands: ?Able to make a fist. No synovitis noted to the MCPs, PIPs or DIPs. ?No tenderness to palpation of these joints. No deformities noted. 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 Wrists: ?Full range of motion at the wrists without pain. ?No tenderness to palpation or synovitis noted to the wrists. Elbows: Full range of motion without pain. No tenderness, weakness, swelling, increased warmth or erythema. Shoulders: Full range of active range of motion without pain. No tenderness, weakness, swelling, increased warmth or erythema. Knees: ?Full range of motion. ?No tenderness, swelling, increased warmth or erythema.?No effusion. Crepitations felt bilaterally Ankles: Full range of motion. ?No tenderness, swelling, increased warmth or erythema.? Feet: ?Negative squeeze test. ?No tenderness to palpation or swelling of the MTPs. Tender points:?No tenderness to palpation of the bilateral trapezius, supraspinatus, greater trochanters, anterior costochondral junctions, bilateral gluteal areas, bilateral suboccipital muscle insertions SKIN Skin intact without rashes. Results Reviewed Results Reviewed: Laboratory Tests 03/11/24 09:00 WBC 5.9 RBC 3.92 L Hgb 12.7 Hct 39.8 Plt Count 193 ESR 22 H Sodium 142 Potassium 4.9 Chloride 107 Carbon Dioxide 26 BUN 26 H Creatinine 1.13 AST 27 ALT 27 Alkaline Phosphatase 58 C-Reactive Protein < 0.10 Infectious serologies 10/15/23 10/21/24 09:56 08:04 Hepatitis A IgM Ab Nonreactive Hep Bs Antigen Negative Hep Bs Antibody NONREACTIVE Hep B Core Total Ab Nonreactive Hepatitis C Ab (EIA) Nonreactive TB Test (T-Spot) Com Negative Assessment & Plan Assessment & Plan (1) Seropositive rheumatoid arthritis of multiple joints: Comment: Onset ? 2004 ++RF -ve CCP MTX started 04/2022 -stopped 11/2022 due to nausea. hydroxychloroqine considered but eye doctor advised against use - some baseline retinal findings. SSZ 08/2023 couldn;t toerate it due to GI upset, nausea & vomiting Simponi Aria infusions 12/2023: Effective Code(s): M05.79 - Rheumatoid arthritis with rheumatoid factor of multiple sites without organ or systems involvement Category: Medical Plan: #Seropositive RA Patient is a 73-year-old female with seropositive rheumatoid arthritis here today for follow up. Currently in remission on Simponi Aria monotherapy Plan - Simponi Aria Infusions 2mg/kg every 8 weeks - Labs today: CBC, CMP, ESR, CRP - RTC 4 months - Labs before visit: CBC, CMP, ESR, CRP (2) Polyarticular osteoarthritis: Code(s): M15.9 - Polyosteoarthritis, unspecified Plan: #Polyarticular OA Patient with polyarticular OA that has poorly responded to steroid injections and even transdermal buprenorphine. We will try low dose gabapentin Plan - gabapentin 100mg at night (3) Encounter for monitoring golimumab therapy: Code(s): Z51.81 - Encounter for therapeutic drug level monitoring; Z79.620 - rodent exterminator (current) use of immunosuppressive biologic Plan: #Long-term Use of TNF Inhibitors: Simponi Aria Discussed with the patient the benefits and risks of TNF inhibitors for the ma nagement of the rheumatic condition Benefits include reduce pain, maintenance of remission and reduction of flares as well as ?progression of the disease Risks include injection sites/infusion reactions, serious infections (such as bacterial infections, opportunistic infections), malignancy, delaminating syndromes, autoimmune phenomena, CHF exacerbations, palmar plantar psoriasis and cytopenias Recommended rotating injection sites, and holding medication during and for up to 1 week after resolution of a febrile illness or open skin wound Plan I spent 35 minutes reviewing the record and labs, taking a history, examining the patient, discussing the treatment plan, ordering diagnostic work up and documenting in the medical record Orders: Orders Complete Blood Count Auto Diff 4 Months M05.79 - Rheumatoid arthritis with rheumatoid factor of multiple sites without organ or systems involvement Erythrocyte Sedimentation Rate 4 Months M05.79 - Rheumatoid arthritis with rheumatoid factor of multiple sites without organ or systems involvement C Reactive Protein Today M05.79 - Rheumatoid arthritis with rheumatoid factor of multiple sites without organ or systems involvement Comprehensive Met. Panel 4 Months M05.79 - Rheumatoid arthritis with rheumatoid factor of multiple sites without organ or systems involvement C Reactive Protein 4 Months M05.79 - Rheumatoid arthritis with rheumatoid factor of multiple sites without organ or systems involvement Complete Blood Count Auto Diff Today M05.79 - Rheumatoid arthritis with rheumatoid factor of multiple sites without organ or systems involvement Comprehensive Met. Panel Today M05.79 - Rheumatoid arthritis with rheumatoid factor of multiple sites without organ or systems involvement Erythrocyte Sedimentation Rate Today M05.79 - Rheumatoid arthritis with rheumatoid factor of multiple sites without organ or systems involvement Referrals Infusion Center Notification M05.79 - Rheumatoid arthritis with rheumatoid factor of multiple sites without organ or systems involvement Pain Management Referral M16.0 - Bilateral primary osteoarthritis of hip, M96.1 - Postlaminectomy syndrome, not elsewhere classified Medications: New gabapentin 100 mg PO BEDTIME 90 caps 1RF M15.9 - Polyosteoarthritis, unspecified Coding Level of Care Code Est Pt Level 4 (86318) Complex EM visit Add On G2211 Diagnoses Seropositive rheumatoid arthritis of multiple joints M05.79 Polyarticular osteoarthritis M15.9 Encounter for monitoring golimumab therapy Z51.81; Z79.620
--- OUTSIDE RECORDS SUMMARY | 2024-10-28 08:07 | XMS_ITS ---
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 Generated for Printi ng/Faxing/eTransmitting on:?10/28/2024 08:07 AM EDT
--- OUTSIDE RECORDS SUMMARY | 2024-10-28 08:07 | XMS_ITS ---
Author Organization [facility] Ralf Villatoro Address [address] [place] [address] Care Team Providers Care Video Recorder Mechanic Name Role Phone Clara Nelson Primary Care Provider Unavailabl e Deidra Almodovar Unavailable [phone] Allergies Allergen (clinical drug ingredient) Drug/Non Drug Allergy documented on EMR Reaction Allergy Type Onset Date Status aspirin Aspirin Unknown Drug Allergy Active Penicillin Unknown Drug Allergy Active REASON FOR VISIT At Risk Footcare, Foot/Leg pain, Toe Irritation, Swelling, Ingrown Nail Medications Medication SIG (Take, Route, Frequency, Duration) Notes Start Date End Date Status Atenolol 50 MG Oral for 90 Days Active Extra Depth Orthopedic Shoes (1 Pair) with Customized Heat Molded Multidensity Innersoles (3 Pair) as directed Dx: NIDDM/Polyneuropathy (E11.42), Hammertoe Foot Deformity (M20.41,M20.42), Preulcerative Skin Lesion(s) (L85.1 11/15/2023 Active Ammonium Lactate 12 % 1 application Exte rnally Twice a day for 30 days Active Lisinopril 10 MG Oral for 90 Days Active Buprenorphine 7.5 MCG/HR 1 patch to skin Transdermal 07/04/2023 Active Simvastatin 20 MG Oral for 90 Days Active Levothyroxine Sodium 125 MCG Oral for 90 Days Active Compression Stockings 20-30mm Hg 1 pair wear daily for 30 days Active Social History Tobacco Use: Social History Observation Description Date Details (start date - stop date) Never Smoker NA - NA Tobacco use other than smoking: Question Answer Notes Are you an other tobacco user? No Tobacco Control (Standard) Question Answer Notes Tobacco use: Nonsmoker Additional Findings: Tobacco non-user Current no nsmoker AUDIT-C (Standard) Question Answer Notes Did you have a drink containing alcohol in the p ast year? No Points 0 Interpretation Negative Vital Signs Height 5ft 6in in 09/25/2024 Weight 182 lbs 09/25/2024 BMI 29.37 kg/m2 09/25/2024 Blood pressure systolic 130 mm Hg 09/26/19 25 Blood pressure diastolic 88 mm Hg 025 Procedures Procedure Date Ordered Date Performed Result Body Sit e 73998-Cbelqusk Plate 09/25/2024 N/A 66362-KWSR SKIN LESIONS, 2 TO 4 09/25/2024 N/A M8095-OLSKDNGA DYSTROPHIC NAILS ANY # 09/25/2024 N/A Encounters Encounter Location Date Provider Diagnosis [facility] [address] [address] 09/25/2024 Deidra Almodovar Type 2 diabetes mellitus with diabetic polyneuropathy E11.42 ; Edema, lower extremity R60.0 ; Tinea unguium B35.1 ; Muscle cramp, nocturnal R25.2 and Ingrown nail L60.0 Assessments Encounter Date Diagnosis (ICD Code) Assessment Notes Treatment Notes Treatment Clinical Notes Section Notes 09/25/2024 Type 2 diabetes mellitus with diabetic polyneuropathy (ICD-10 - E11.42) 09/25/2024 Edema, lower extremity (ICD-10 - R60.0) 09/25/2024 Tinea unguium (ICD-10 - B35.1) 09/25/2024 Muscle cramp, nocturnal (ICD-10 - R25.2) 09/25/2024 Ingrown nail (ICD-10 - L60.0) 09/25/2024 Other Plan Of Treatment Medication Medication Name Sig Start Date Stop Date Notes Compression Stockings 20-30mm Hg 1 pair wear daily for 30 days Pending Test Test Name Order Date 24075-Uwdxcsla Plate 09/25/2024 39055-PAPY SKIN LESIONS, 2 TO 4 09/26/19 25 Z9651-JXUZLDVE DYSTROPHIC NAILS ANY # Next Appt Details Follow Up: 2 Weeks,prn, Reas on: Provider Name:Deidra Almodovar , 01/05/2025 08:15:00 AM, [address] [place] [address], [id number], Procedure Notes * Category Sub-Category Detail Notes Nail Avulsion Procedure A fine sterile e levator was placed between the eponychium, nail fold, and nail plate to separate the structures. A sterile nail splitter, and/or sterile 316 blade, was then used to longitudinally section the nail along its entire length through the eponychium to the area under the nail fold. The offending portion of nail was from the nail bed with a rolling action and then removed with a hemostat. No underlying bone was identified. There was minimal bleeding as hemostasis was achieved through the temporary use of either a digital tourniquet or the aforementioned local with epinephrine. A bacitracin sterile dressing was applied. Local wound aftercare instructions were discussed and dispensed. The patient was informed of both conservative and future surgical procedures to prevent recurrence. Tylenol or Motrin was recommended for pain or discomfort - 86522, DIABETES: Matricectomy deferred at this time due to diabetes risk Anesthesia , was deferred - ARSH ROPATHY: patient has medically documented neuropathic condition affecting sensation Location , Lateral nail borde r, T5 Keratoma Treatment Parring or Cutting o f Benign Hyperkeratotic Lesion(s) (-56) 2-4 Lesions - Due to the at risk nature of the patients medical condition as documented in the exam findings, performance of this keratoderma treatment is medically necessary as its management by an unskilled/untrained nonprofessional would put this patients foot and overall health at risk. Therefore, the benign hyperkeratotic lesions, ( 2 ) in total, locations as stated and described in the exam ( Plantar Heel(s), B/L ), were pared, and/or cut utilizing a sterile 15 blade, tissue nippers, and/or power dremel instrumentation by the physician of record - 22865 Nail Reduction Nail Reduction (-27) Trimming o f all dystrophic nails - Due to the at risk nature of the patients medical condition as documented in the exam findings, performance of this nail treatment is medically necessary as its management by an unskilled/untrained nonprofessional would put this patients foot and overall health at risk. Therefore, the dystrophic nails, in locations as stated and described in the exam ( _TA, T1, T2, T3, T4, T5, T6, T8, T9 ), were debrided by the phisician of record to reduce/remove overall nail length and girth, by manual and electrical means with use of a nail nipper and/or dremel, to more viable healthy nail plate or bed tissue - G0127 Progress Notes * Julio C AVERYOB:1950 (73 yo F)Acc No.[id number]:09/25/2024 Progress Note Patient:?Tiffany AVERY Provider:?Deidra Almodovar DPM :1950???Age:73 Y???Sex:Female D ate:09/25/2024 Address:[address] [place], [place] [id number] Pcp:Clara Nelson Subjective: * Chief Complaints: * ???At Risk FootcareFoot/Leg painToe IrritationSwellingIngrown Nail * HPI: ???At Risk footcare:?Pt States Last PCP Visit:?Date?09/16/2024 ???Foot Pain:?Nature:?tightness, cramping, pulling, aching.?Location:?, LEFT foot/leg.?Duration:?several weeks.?Onset:?sudden.?Course:?, improved, at 90%.?Aggravated:?Especially toward the end of the day/at rest/at night, stretching exercises.?Swelling:?Location:?Both feet/leg.?Duration:?several weeks.?Course:?worse.? * ROS:?General/Constitutional:?Nausea?denies.?Vomiting?denies.?Hunger Thirst?denies.?Loss appetite?denies.?Chills?denies.?Fatigue?denies.?Fever?denies.?Night Sweats?denies.?Unexplained weight loss?denies.?Unexplained weight gain?denies.?HEENTM:?Dentures?denies.?Dizziness?denies.?Glasses/contacts?admits.?Retinopathy?de nies.?Blurred/double vision?denies.?TMJ?denies.?Discharge/drainage?denies.?Implants?denies.?Sore throat?denies.?Dental implants?denies.?Hard of hearing ?denies.?Difficulty chewing/swallowing/speaking?denies.?Nose bleeds?denies.?Sore mouth?denies.?Respiratory:?On Oxygen?denies.?Pneumonia/pleurisy?denies.?Bronchitis?denies.?Emphysema?denies.?C oughing?denies.?Cough blood?denies.?Shortness of breath?denies.?Wheezing?denies.?Cardiovascular:?Pacemaker?denies.?MVP?denies.?WPW?denies.?CHF?denies.?Heart attack?denies.?Septal defect?denies.?Rapid beat?denies.?Chest pain ?denies.?Atrial Fib.?denies.?Murmur/Palpitations?denies.?Gastrointestinal:?Hemorrhoids?denies.?Stomach/Abdominal pain?denies.?Dark blood stool?denies.?Irritable bowel ?denies.?Constipation?denies.?Diarrhea?denies.?Hematology:?Swelling?denies.?Clots?denies.?Varicose Veins?denies.?Bruising?denies.?Bleeding problem?denies.?Genitourinary:?Blood urine?denies.?Frequent/Painfu/urination/bladder control?denies.?Kidney stones?denies.?Infection (UTI)?denies.?Nephropathy?denies.?sex trans dis (STD)?denies.?Prostate?denies.?Musculoskeletal:?Hammertoes?, admits.?Bunions?denies.?Back Pain?denies.?Muscle Cramps/ Resting?denies.?Muscle cramps / walking?denies.?Generalized aches and pains?denies.?Weakness?denies.?Integ.:?[place]?denies.?Scars?denies.?Corns/calluses?denies.?Ingrown nails?admits.?Painful nails?admits.?Open Sores?denies.?Rashes?denies.?Neurologic:?Difficulty sleeping?denies.?Brain disorder?denies.?Numbness?denies.?Balance trouble?denies.?Confusion?denies.?Fainting/blackouts?denies.?Tingling?denies.?Tr emors?denies.? * Medical History:? * Surgical History:?hysterecto my appendectomy back surgery colonoscopy wisdom teeth extraction Tooth extraction lung surgery 08/21/23 * Hospitalization/Major Diagno stic Procedure:?Denies Past Hospitalization * Family History:?Mother: dece ased, diagnosed with Unspecified essential hypertension, Family history of arthritis.?Father: .?Siblings: diagnosed with Other malignant neoplasm of unspecified site.? * Social History:?Tobacco Use:?Tobacco use other than smoking?Are you an other tobacco user??No ?Tobacco Control (Standard)?Tobacco use:?Nonsmoker ?Additional Findings: Tobacco non-user?Current nonsmoker ???Drugs/Alcohol:?Drugs?Have you used drugs other than those for medical reasons in the past 12 months??No ???Miscellaneous:?Caffeine: yes, 1-2 cups per day. ?Children: yes, 1. ?Exercise: yes, walking. ?Marital status: . 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 ???Drug/Alcohol:?AUDIT-C (Standard)?Did you have a drink containing alcohol in the past year??No ?Points?0 ?Interpretation?Negative * Medications:?TakingSimvastat in 20 MG Tablet Oral Levothyroxine Sodium 125 MCG Tablet Oral Atenolol 50 MG Tablet Oral Lisinopril 10 MG Tablet Oral Buprenorphine 7.5 MCG/HR Patch Weekly 1 patch to skin Transdermal Ammonium Lactate 12 % Cream 1 application Externally Twice a day Extra Depth Orthopedic Shoes (1 Pair) with Customized Heat Molded Multidensity Innersoles (3 Pair) as directed Dx: NIDDM/Polyneuropathy (E11.42), Hammertoe Foot Deformity (M20.41,M20.42), Preulcerative Skin Lesion(s) (L85.1 Medication List reviewed and reconciled with the patientTaking Simvastatin 20 MG Tablet Oral Taking Levothyroxine Sodium 125 MCG Tablet Oral Taking Atenolol 50 MG Tablet Oral Taking Lisinopril 10 MG Tablet Oral Taking Buprenorphine 7.5 MCG/HR Patch Weekly 1 patch to skin Transdermal Taking Ammonium Lactate 12 % Cream 1 application Externally Twice a day Taking Extra Depth Orthopedic Shoes (1 Pair) with Customized Heat Molded Multidensity Innersoles (3 Pair) as directed Dx: NIDDM/Polyneuropathy (E11.42), Hammertoe Foot Deformity (M20.41,M20.42), Preulcerative Skin Lesion(s) (L85.1 Medication List reviewed and reconciled with the patient * Allergies:?PenicillinAspirin yes[Allergies Verified] Objective: * Vitals:?Ht: 5ft 6in, Wt:182, BMI:29.37, Shoe size: 9-9.5, BP:130/88mm Hg, BS: not taken, Ht-cm: 167.64 cm, Wt-k.55 kg. * ???Past Orders: ???Lab:HEMOGLOBIN A1C (GLYCO HEMOGLOBIN) (Order Date - 03/07/2024) (Collection Date & Time - 09/25/2024 12:01 PM) ? Value Reference Range ?HEMOGLOBIN A1C % (HH) 5.4 * Examination: ???Ophthalmology Referral: ?DIABETES EYE EXAM?Procedure Performed:?No ?Diabetic Retinopathy Screening:?No?General Examination: ?GENERAL APPEARANCE:?Reveals a pleasant, alert, well nourished, well- developed, well hydrated individual, who demonstrates proper attention to hygiene/body habitus, and is in no acute distress.?Neurological: ?SENSORY:? Neurological exam demonstrates, reduced light touch sensation, reduced sharp/dull pin prick discrimination , B/L, 5.07 monofilament test performed at plantar aspects of 5 varied sites per foot shows sensation, reduced , B/L.?Nails: ?NAILS are:?Elongated, overgrown, dystrophic??TA, T1, T2, T3, T4, T6, T8, T9.?Dermatologic: ?SKIN FINDINGS:?Skin exam reveals Keratotic lesion(s) located at ,, Plantar Heel(s), B/L.?Vascular: ?DP PULSES (B):?1/4 , B/L.?PT PULSES (B):?1/4 , B/L.?CAPILLARY FILL TIME:?delayed, all digits, B/L.?TROPHIC CONDITION-TEXTURE/ELASTICITY/TURGOR/HAIR GROWTH (B):?sparce hair growth.?TEMPERTURE GRADIENT (C):?decreased, cool to cool, proximal to distal, B/L.?PIGMENTATION:?normal, B/L.?EDEMA (C):?3/4, non-pitting , B/L.?ELEV. PALOR:?absent , B/L.?CLAUDICATION (C):?denies , Left.?REST PAIN:?denies , B/L.?ALICE'S SIGN:?absent, B/L.?PALPABLE CORDS:?absent, B/L.?Orthopedic: ?FOOT MORPHOLOGY:? Pain in Achilles and intrinsic foot musculature, Decreased Ankle joint dorsiflexion ROM, knee extended, B/L.?DIGITAL DEFORMITIES:??, Digital contracture, PIPJ, 2-5 B/L, incompl- reducible to push-up test, no over, nor underlapping,?there is?evidence of shoe producing skin irritation.?FOOTWEAR EVALUATION:?worn, non-supportive, shoe gear properties exacerbate patient's foot/toe deformity?.?Ingrown Nail: ?INSPECTION:?Reveals nail incurvation, pain on palpation, groove hypertrophy, groove ischemia, Lateral nail border, T5.? Assessment: * Assessment: 1.?Type 2 diabetes mellitus with diabetic polyneuropathy - E11.42???2.?Edema, lower extremity - R60.0 (Primary)???Specify :Acute problem, Uncomplicated (3), Rx Management (4)???3.?Tinea unguium - B35.1???4.?Muscle cramp, nocturnal - R25.2???Specify :Acute problem, Stable???5.?Ingrown nail - L60.0??? Plan: * Treatment: 2.?Type 2 diabetes mellitus with diabetic polyneuropathy?Procedure: 90159-RUXL SKIN LESIONS, 2 TO 4 ?Procedure: N1863-QDRJDJBI DYSTROPHIC NAILS ANY # 3.?Ingrown nail?Procedure: 67526-Hvvjnbzk Plate * Procedures:?Keratoma Treatment:?Parring or Cutting of Benign Hyperkeratotic Lesion(s)?(-56) 2-4 Lesions - Due to the at risk nature of the patients medical condition as documented in the exam findings, performance of this keratoderma treatment is medically necessary as its management by an unskilled/untrained nonprofessional would put this patients foot and overall health at risk. Therefore, the benign hyperkeratotic lesions, ( 2 ) in total, locations as stated and described in the exam ( Plantar Heel(s), B/L ), were pared, and/or cut utilizing a sterile 15 blade, tissue nippers, and/or power dremel instrumentation by the physician of record - 20251.?Nail Avulsion:?Location?, Lateral nail border, T5.?Anesthesia?, was deferred - NEUROPATHY: patient has medically documented neuropathic condition affecting sensation.?Procedure?A fine sterile elevator was placed between the eponychium, nail fold, and nail plate to separate the structures. A sterile nail splitter, and/or sterile 316 blade, was then used to longitudinally section the nail along its entire length through the eponychium to the area under the nail fold. The offending portion of nail was from the nail bed with a rolling action and then removed with a hemostat. No underlying bone was identified. There was minimal bleeding as hemostasis was achieved through the temporary use of either a digital tourniquet or the aforementioned local with epinephrine. A bacitracin sterile dressing was applied. Local wound aftercare instructions were discussed and dispensed. The patient was informed of both conservative and future surgical procedures to prevent recurrence. Tylenol or Motrin was recommended for pain or discomfort - 62988, DIABETES: Matricectomy deferred at this time due to diabetes risk.?Nail Reduction:?Nail Reduction?(-27) Trimming of all dystrophic nails - Due to the at risk nature of the patients medical condition as documented in the exam findings, performance of this nail treatment is medically necessary as its management by an unskilled/untrained nonprofessional would put this patients foot and overall health at risk. Therefore, the dystrophic nails, in locations as stated and described in the exam ( _TA, T1, T2, T3, T4, T5, T6, T8, T9 ), were debrided by the phisician of record to reduce/remove overall nail length and girth, by manual and electrical means with use of a nail nipper and/or dremel, to more viable healthy nail plate or bed tissue - G0127.? * Procedure Codes:?74773 Avuls ion Plate, Modifiers: T5 95835 TRIM SKIN LESIONS, 2 TO 4, Modifiers: XS G0127 TRIMMING DYSTROPHIC NAILS ANY #, Modifiers: XS * Preventive Medicine:? ??Counseling:?Discussion:?-13: Office or other outpatient visit for the evaluation and management of an established patient, which required a medically appropriate history and/or examination and LOW level of DECISION MAKING for: 1 STABLE ACUTE UNCOMPLICATED PROBLEM, 2 OR MORE MINOR PROBLEMS, OR 1 STABLE CHRONIC PROBLEM, THAT POSE(S) A LOW RISK FOR MORBIDITY/MORTALITY. The visit on the day of the [...] have encouraged the patient to call the office.?Edema:?I explained to the patient the possible etiologies for Edema, including genetic, surgery, infection, medications, heart disease, kidney disease, excess dietary salt, and various cancer treatments. We discussed the risks/benefits of the treatment options available including rest, elevation, OTC compression stockings, Rx compression stockings, Unna Boot application, diet modification to limit salt intake, and Rx segmental compression boots provided the absence of CHD in the patients medical history. The advantages and disadvantages of each option were discussed and the patients questions re: risk of infection(cellulitis), medications, diet, and the daily use of compression stockings(not to be worn at night), and consistency in these home treatment regimens for optimal success were answered to their verbally confirmed satisfaction. Given the risk for vessel clotting disease, the patient was instructed to go immediately to the ER of hospital should they experience any calf pain, SOB, or discomfort. Any changes to the patients medication regimen will be performed by the PCP or patients kidney/heart/cancer specialist. The patient has elected to receive compression stockings. Such were Rxed today with instructions for use- recomm to wear when pt flies also (upcoming trip to [place]).?Stretching Exercises:?Cont. with recomm. stretching exercises.? * Follow Up:?2 Weeks,prn * Images: * Sign off status: Completed true * Provider:Damaso Almodovar DPVictor Manuel Date:?2024 Generated for Raymon hurtado/Natalya/eTransmitting on:?10/28/2024 08:07 AM EDT History and Physical Notes * HPI (History of Present Illness) Category Sub-Category Detail Notes Category Not es At Risk footcare Pt States Last PCP Visit: Date: Foot Pain Nature: tightness, cramp ing, pulling, aching Location: , LEFT foot/leg Duration: several weeks Onset: sudden Course: , improved, at 90% Aggravated: Especially toward th e end of the day/at rest/at night, stretching exercises Swelling Location: Both feet/leg Duration: several weeks Course: worse Examination Category Sub-Category Detail Notes Category Not es Ingrown Nail INSPECTION: Reveals nail inc urvation, pain on palpation, groove hypertrophy, groove ischemia, Lateral nail border, T5 Neurological SENSORY: Neurological exa m demonstrates, reduced light touch sensation, reduced sharp/dull pin prick discrimination , B/L, 5.07 monofilament test performed at plantar aspects of 5 varied sites per foot shows sensation, reduced , B/L Dermatologic SKIN FINDINGS: Skin exam reveal s Keratotic lesion(s) located at ,, Plantar Heel(s), B/L Orthopedic FOOT MORPHOLOGY: Pain in [place] s and intrinsic foot musculature, Decreased Ankle joint dorsiflexion ROM, knee extended, B/L FOOTWEAR EVALUATION: worn, non-supportiv e, shoe gear properties exacerbate patient's foot/toe deformity DIGITAL DEFORMITIES: , Digital contractu re, PIPJ, 2-5 B/L, incompl-reducible to push-up test, no over, nor underlapping, there is evidence of shoe producing skin irritation General Examination GENERAL APPEARANCE: Reveals a pleasant, alert, well nourished, well-developed, well hydrated individual, who demonstrates proper attention to hygiene/body habitus, and is in no acute distress Ophthalmology Referral DIABETES EYE EXAM Procedure Perform ed:: No Diabetic Retinopathy Screening:: No Vascular DP PULSES (B): 1/4 , B/L PT PULSES (B): 1/4 , B/L CAPILLARY FILL TIME: delayed, all digits , B/L TEMPERTURE GRADIENT (C): decreased, cool to cool, proximal to distal, B/L TROPHIC CONDITION-TEXTURE/ELASTICITY/TURGOR/HAIR GROWTH (B): sparce hair growth EDEMA (C): 3/4, non-pitting , B /L ELEV. PALOR: absent , B/L CLAUDICATION (C): denies , Left REST PAIN: denies , B/L ALICE'S SIGN: absent, B/L PALPABLE CORDS: absent, B/L PIGMENTATION: normal, B/L Nails NAILS are: Elongated, overg rown, dystrophic TA, T1, T2, T3, T4, T6, T8, T9
--- OUTSIDE RECORDS SUMMARY | 2024-10-28 08:07 | XMS_ITS | Encounter Summary ---
Author Organization [facility] Address [address] [place] [address] Care Team Providers Care Tank Builder Helper Name Role Phone Clara Nelson MD Primary Care Provider [phone] Reason for Referral * Consultation (Routine) - Closed Specialty Diagnoses / Procedures Referred By Contmelinda t Referred To Contact Rheumatology Diagnoses Seropositive rheumatoid arthritis of multiple sites ([facility] V24, [facility] V28) Clara Nelson MD [address] [place] [address] Phone: tel: fax: Lin Perez MD [address] [place] [address] Phone: tel: fax: Referral ID Status Reason Start Date Expiration Date V isits Requested Visits Authorized [id number] Closed Specialty Services Required 09/30/2024 09/30/2025 8 8 Reason for Visit * Reason Onset Date Comments Referral 09/30/2024 Rheumatology Encounter Details Date Type Department Care Team (Late st Contact Info) Description 09/30/2024 Telephone Adult Medicine [address] [phone] Clara Nelson MD [address] [place] [address] Referral (Rheumatology) Social History Tobacco Use Types Packs/Day Years [...] on file documented as of this encounter Progress Notes * Kassandra Gray - 09/30/2024 3:01 PM EDT [facility] [place] an insurance authorization. Dr. Luis Alfredo WORTHY [id number] DX M05.79 8 visits Appointment 09/30/24 Please pend an order for the provider to review and sign so we can process the insurance authorization documented in this encounter Plan of Treatment Upcoming Encounters Date Type Department Care Team (Late st Contact Info) Description 03/10/2025 8:30 AM EDT Office Visit Adult Medicine [facility] [address] [place] [phone] Clara Nelson MD [address], [place] 03/23/2025 9:00 AM EDT Office Visit [facility] Hematology Oncology [address] [place] [phone] Marco Hunter MD [address] [place] [phone] 03/23/2025 11:10 AM EDT Office Visit [facility] Cardiology [facility] [address] [place] [address] [place] [address] Aurelia Hart NP [address] [place] [address] [place] [address] Scheduled Referrals Name Type Priority Associated Diagnoses Order Schedule Ambulatory referral to Rheumatology Outpatient Referral Routine Seropositive rheumatoid arthritis of multiple sites [place] [place] [facility] [place] 1 Occurrences starting 09/30/2024 until 09/30/2025 documented as of this encounter Visit Diagnoses Diagnosis Seropositive rheumatoid arthritis of multiple sites [place] [place] [facility] [place] Primary documented in this encounter Care Teams Tank Builder Helper Relationship Specialty Start Date End Date Clara Nelson MD [address] [place] [id number] PCP - General Internal Medicine 04/25/21 documented as of this encounter
--- OUTSIDE RECORDS SUMMARY | 2024-10-28 08:07 | XMS_ITS | Clinical Summary ---
Author Organization [facility] Address [address] [place] [address] Care Team Providers Care Harpoon Engagement Planning Operator Name Role Phone Clara Nelson MD Primary Care Provider [phone] Allergies Active Allergy Reactions Criticality Noted Date Comments Aspirin Nausea And Vomiting 03/15/2005 Linolenic Acid Diarrhea 01/16/2012 Methocarbamol Nausea And Vomiting 07/24/2008 Penicillins Swelling 03/15/2005 Medications Medication Sig Dispensed Refills Start Date End Date Status atenolol (TENORMIN) tablet 50 mg Take 0.5 tablets (25 mg total) by mouth. 0 07/26/2017 Active fluticasone (FLONASE) 50 MCG/ACT nasal spray spray or apply 2 sprays inside Nose. 0 11/30/2015 Active gabapentin (NEURONTIN) 100 MG capsule Take 1 capsule (100 mg total) by mouth. 0 10/30/2017 Active levothyroxine (SYNTHROID, LEVOXYL) tablet 125 mcg Take 1 tablet (125 mcg total) by mouth. 0 07/26/2017 Active lisinopril (PRINIVIL,ZESTRIL) tablet 10 mg TAKE 1 TABLET BY MOUTH DAILY 0 12/21/2017 Active Multiple Vitamin Essential TABS Take by mouth. 0 Active simvastatin (ZOCOR) tablet 20 mg TAKE 1 TABLET BY MOUTH AT BEDTIME 0 03/12/2018 Active methotrexate 2.5 MG tablet Take by mouth 3 (three) times a week. 0 Active folic acid (FOLVITE) tablet 1 mg Take by mouth daily. 0 Active buprenorphine (BUTRANS) 7.5 MCG/HR PTWK Place 1 patch onto the skin every 7 days. 0 Active Active Problems Problem Noted Date Diagnosed Date Elevated hematocrit 07/29/2022 Macrocytosis 07/29/2022 Arthritis of right hip 07/09/2018 Trochanteric bursitis, right hip 03/13/2018 Family History Medical History Relation Name Comments Cancer Brother Diabetes Mother Cancer Sister Relation Name Status Comments Brother Mother Sister Social History Tobacco Use Types Packs/Day Years Used Date Smoking Tobacco: Every Day Smokeless Tobacco: Never Alcohol Use Standard Drinks/Week Comments Yes 1 (1 standard drink = 0.6 oz pur e alcohol) Sex and Gender Information Value Date Recorded Sex Assigned at Not on file Gender Identity Not on file Sexual Orientation Not on file Job Start Date Occupation Industry Not on file Not on file Not on file Last Filed Vital Signs Vital Sign Reading Time Taken Comments Blood Pressure 153/56 03/19/2024 9:45 AM EDT Pulse 67 03/19/2024 9:45 AM EDT Temperature 36.3 ??C (97.4 ??F) 03/19/2024 9:45 AM ED T Respiratory Rate - - Oxygen Saturation 100% 03/19/2024 9:45 AM EDT Inhaled Oxygen Concentration - - Weight 79.4 kg (175 lb) 03/19/2024 9:45 AM EDT Height 170.2 cm (5' 7 ) 03/19/2024 9:45 AM EDT Body Mass Index 27.41 03/19/2024 9:45 AM EDT Plan of Treatment Health Maintenance Due Date Last Done Comments Hepatitis C Screening 1948 Depression Screening 1960 Preventative Health Evaluation 1966 Colon Cancer Screening (Colonoscopy) 1993 Fall Risk Assessment 2013 Osteoporosis Screening (DEXA Scan) 2013 Shingrix-Zoster Vaccine (2 of 2) 06/01/2020 04/06/2020 RSV Adult > 60+ Yrs or (1 - 1-dose 75+ series) 12/25/2023 COVID-19 Vaccine ( season) 2024 07/10/2021, 09/16/2020, 08/26/2020 DTap / Tdap / Td (3 - Td or Tdap) 09/02/2031 09/01/2021, 04/07/2009 Pneumococcal Vaccine Completed 04/16/2017, 02/19/2014, 03/25/2003 Influenza Vaccine Completed 03/07/2024, , 03/02/2022, Additional history exists Hepatitis B Vaccines Aged Out No long er eligible based on patient's age to complete this topic RSV Ped < 20 months Aged Out No longe r eligible based on patient's age to complete this topic Care Teams Harpoon Engagement Planning Operator Relationship Specialty Start Date End Date Clara Nelson MD PCP - General Internal Medicine 07/06/21
--- OUTSIDE RECORDS SUMMARY | 2024-10-28 08:07 | XMS_ITS | Clinical Summary ---
Author Organization [facility] Address [address] [place] [address] Phone Care Team Providers Care Hyperbaric Technician Name Role Phone Clara Nelson MD Primary Care Provider [phone] Allergies Active Allergy Reactions Criticality Noted Date Comments Aspirin Nausea And Vomiting 03/15/2005 Linolenic Acid Diarrhea 01/16/2012 Methocarbamol Nausea And Vomiting 07/24/2008 Penicillins Swelling 03/15/2005 Medications fluticasone propionate (FLONASE) 50 mcg/actuation nasal spray spray or apply 100 mcg inside Nose. 11/30/2015 Active folic acid (FOLVITE) 1 mg tablet Take by mouth daily. Active multivitamin (MULTIPLE VITAMINS ORAL) Take by mouth. Active atenoloL (TENORMIN) 50 mg tablet TAKE 1/2 TABLET BY MOUTH DAILY 45 tablet 1 04/28/2024 Active simvastatin (ZOCOR) 40 mg tablet TAKE 1 TABLET BY MOUTH AT BEDTIME 90 tablet 1 07/30/2024 Active albuterol HFA (PROAIR HFA ; PROVENTIL HFA ; VENTOLIN HFA) 90 mcg/actuation inhaler Inhale 2 puffs by mouth every 6 (six) hours if needed for wheezing. 6.7 g 11 08/28/2024 Active lisinopriL (PRINIVIL,ZESTR IL) 10 mg tablet Take 1 tablet (10 mg total) by mouth 1 (one) time each day. 90 each 1 09/05/2024 Active levothyroxine (SYNTHROID, LEVOTHROID) 125 mcg tablet Take 1 tablet (125 mcg total) by mouth 1 (one) time each day before breakfast. 6 days per week; do not take on Sundays09/11/2024 Active apixaban (ELIQUIS) 5 mg tablet Take 1 tablet (5 mg total) by mouth 2 (two) times a day. 90 tablet 2 09/17/2024 Active Active Problems Problem Noted Date Diagnosed Date History of lung cancer 08/27/2024 Assessment & Plan (08/28/2024 10:18 AM EDT): Ms. Ruelas is a 73 year old female who had a robotic right upper lobectomy for a stage 1b adenocarcinoma in August 2023. Most recent surveillance chest CT on August 20, 2024 shows no new, or worsening, mediastinal adenopathy or pulmonary nodule to suggest recurrence or new disease. She has a stable 6 mm nodule in the left lower lobe, as well as other scattered pulmonary nodules all of which measure less than 4 mm and all of which are unchanged. We will continue with routine chest CT surveillance the next of which will be in 6 months, February 2025. The patient will have a visit in the office after the scan as part of her surveillance protocol. Trochanteric bursitis, right hip 03/13/2018 Overweight (BMI 25.0-29.9) 12/25/2017 Atrial fibrillation ([facility] V24, [facility] V28) Carpal tunnel syndrome COPD (chronic obstructive pu lmonary disease) ([facility] V24, [facility] V28) Overview (08/27/2024): On cxr 12/03/2017 Hypertension Hx of cervical cancer Overview (08/27/2024): : per patient. stated had hysterectomy Rheumatoid arthritis (CMS/HCC V24, CMS/HCC V28) Pure hypercholesterolemia OA (osteoarthritis) of hip Overview (08/27/2024): : S/p MRI 08/05/2017 No fractures, effusion or bony destructive lesions. Consistent with moderate DJD. Repeat MRI 02/[address] 06/2018 with moderate DJD and loose body. Follows with Dr Edge SLE (systemic lupus erythema tosus) (CMS/[facility] V24, CMS/HCC V28) Lumbar stenosis Overview (08/27/2024): S/p CT with moderate central stenosis and bilateral foraminal narrowing at L4-L5 s/p corticosteroid injections with physiatry. S/p hemilaminectomy 11/2017 Hypothyroidism Resolved Problems Problem Noted Date Diagnosed Date Resolved Date Elevated hematocrit 07/29/2022 08/28/19 25 Arthritis of right hip 07/09/201808/27 Encounters Date Type Department Care Team Description 10/14/2024 7:54 AM EDT - 10/14/2024 11:59 PM EDT Hospital Encounter Radiology Department - [address] [phone] Encounter for screening mammogram for breast cancer Discharge Disposition: Home or Self Care 09/30/2024 Telephone Adult Medicine [address] [phone] Clara Nelson MD Referral (Rheumatology) 09/24/2024 Telephone Adult Medicine [address] [phone] Clara Nelson MD Referral 09/17/2024 1:10 PM EDT Office Visit [facility] [address] [phone] Aurelia Hart NP Coronary artery disease, unspecified vessel or lesion type, unspecified whether angina present, unspecified whether citizen potawatomi or transplanted heart (Primary Dx) 09/17/2024 9:15 AM EDT Office Visit [facility] Hematology Oncology [address] [place] [phone] Marco Hunter MD Macrocytosis (Primary Dx) 09/05/2024 8:15 AM EDT Office Visit Adult Medicine [address] [phone] Clara Nelson MD Primary hypertension (Primary Dx); Longstanding persistent atrial fibrillation (CMS/HCC V24, CMS/HCC V28); Pure hypercholesterolemia; Acquired hypothyroidism 08/28/2024 9:45 AM EDT Office Visit Thoracic Surgery - [place] [address] [facility] [address] [place] [address] Marisa Ngo PA History of lung cancer (Primary Dx); Lung nodule 08/20/2024 8:48 AM EST - 08/20/2024 11:59 PM EST Hospital Encounter [facility] CT Scan [address] [place] [phone] History of lung cancer Discharge Disposition: Home or Self Care from Last 3 Months Immunizations Name Administration Dates Next Due H1N1 Inj Preservative Free 06/10/2009 Influenza Quadravalent, MDCK , 0.5ml, with preservative (Flucelvax) 6mo and older 04/16/2017 Influenza trivalent, 0.5mL ( Fluad) 65yo and older 03/07/2024 Influenza trivalent, 0.5mL ( Fluzone High-dose) 65yo and older 04/02/2023,03/02/2022,03/25/2021,04/08,03/28/2018 Influenza trivalent, with pr eservative (Fluzone; Afluria) 6mo and older 05/02/2016,03/27/2014,06/03/2013,04/24,06/07/2011,04/07/2010,03/17/2009 ,03/03/2008,03/18/2007,05/09/2006,1106/2004 [employer] SARS-CoV-2 COVID-19, mRNA, LNP-S, preservative free 07/10/2021,09/16/2020,08/26/2020 Pneumococcal conjugate 13 va lent (Prevnar 13, PCV13) 2mo and older 04/16/2017 Pneumococcal polysaccharide 23 valent (Pneumovax 23) 2yo and older 02/19/2014,03/25/2003 RSV, bivalent, protein subun it RSVpreF, 0.5mL, Preservative Free (Arexvy) 60yo and older 03/20/2024 Td Tetanus diptheria (Tdvax) 7yo and older 09/01/2021 Tdap Tetanus diptheria acell ular pertussis (Boostrix; Adacel) 7yo and older 04/07/2009 Zoster Live 12/25/2017 Zoster recombinant (Shingrix ) 19yo and older 03/23/2023,04/06/2020 Surgical History Surgery Date Site/Laterality Comments APPENDECTOMY TONSILLECTOMY CATARACT EXTRACTION 2007 bilateral BACK SURGERY hemilaminectomy l4-5 BREAST LUMPECTOMY Right benign OTHER SURGICAL HISTORY 08/21/2023 Right : RUL lung cancer, lobectomy Medical History Medical History Date Comments Pure hypercholesterolemia 12/29/2004 Carpal tunnel syndrome 09/07/2004 Hypertension 07/27/2017 Hypothyroidism 12/29/2004 COPD (chronic obstructive pu lmonary disease) ([facility] V24, [facility] V28) 12/05/2017 On cxr 12/03/2017 Lumbar stenosis 09/06/2017 S/p CT with mode rate central stenosis and bilateral foraminal narrowing at L4-L5 s/p corticosteroid injections with physiatry. S/p hemilaminectomy 11/2017 OA (osteoarthritis) of hip 07/27/2017 : S/p MRI 08/05/2017 No fractures, effusion or bony destructive lesions. Consistent with moderate DJD. Repeat MRI 02/[address] 06/2018 with moderate DJD and loose body. Follows with Dr Minesh Ward of cervical cancer : per elvi ent. stated had hysterectomy Atrial fibrillation ([facility] V24, [facility] V28) 09/04/2023 Rheumatoid arthritis ([facility] V24, [facility] V28) Lupus History of lung cancer 08/27/2024 Family History Medical History Relation Name Comments Lung cancer Brother 1 Cancer Brother 2 Arthritis Mother DM, HTN, choles terol Breast cancer Other 1 niece-46 Breast cancer Other 2 niece (brother 's daughter) Breast cancer Paternal Grandmother Breast cancer Sister 1 56 Cancer Sister 2 Relation Name Status Comments Brother 1 Brother 2 Mother Other 1 niece-46 Other 2 Paternal Grandmother Sister 1 56 Sister 2 Social History Tobacco Use Types Packs/Day Years Used Date Smoking Tobacco: Former Cigarettes 1.5 59.2 0 06/18/1964 - 08/21/2023 Smokeless Tobacco: Never Tobacco Cessation:Counseling Given: Not Answered Alcohol Use Standard Drinks/Week Comments Yes 1 (1 standard drink = 0.6 oz pur e alcohol) Comments Unknown Sex and Gender Information Value Date Recorded Sex Assigned at Female 08/19/2024 11:35 AM EST Legal Sex Female 1:56 AM EST Gender Identity Female 08/19/2024 11:35 AM EST Sexual Orientation Not on file Obstetrics History Para Term AB IAB SAB Ectopic Multiple Livin g Live Births 1 Date Outcome GA Total Labor Labor/2nd/3rd Weight Sex Type Anes PTL Shivani A1 A5 Name Clin Term Last Filed Vital Signs Vital Sign Reading Time Taken Comments Blood Pressure 134/72 09/17/2024 1:20 PM EDT Pulse 77 09/17/2024 1:20 PM EDT Temperature 36.7 ??C (98 ??F) 09/17/2024 9:30 AM EDT Respiratory Rate 16 09/05/2024 8:22 AM EDT Oxygen Saturation 96% 09/17/2024 1:20 PM EDT Inhaled Oxygen Concentration - - Weight 89.4 kg (197 lb) 09/17/2024 1:20 PM EDT Height 167.6 cm (5' 6 ) 09/17/2024 1:20 PM EDT Body Mass Index 31.8 09/17/2024 1:20 PM EDT Plan of Treatment Upcoming Encounters Date Type Department Care Team (Late st Contact Info) Description 03/10/2025 8:30 AM EDT Office Visit Adult Medicine [facility] [address] [place] [phone] Clara Nelson MD [address] [place] [address] 03/23/2025 9:00 AM EDT Office Visit [facility] Hematology Oncology [address] [place] [phone] Marco Hunter MD [address] [place] [phone] 03/23/2025 11:10 AM EDT Office Visit [facility] [address] [place] [address] [place] [phone] Aurelia Hart NP [address] [place] [address] [place] [address] Health Maintenance Due Date Last Done Comments Colorectal Cancer Screening: Colonoscopy 05/25/2022 Depression Screening 05/25/2022 Falls Risk Assessment 05/25/2022 Hepatitis C Screening 05/25/2022 Medicare Annual Wellness Visit 05/25/2022 Osteoporosis Screening (Bone Density Screening) 05/25/2022 Social Influencers of Health Screening 05/25/2022 Lung Cancer Screening (Low Dose CT) 03/14/2024 03/14/2023, 03/13/2022 COVID-19 Vaccine (6 - Pfizer risk season) 2024 03/20/2024, 03/23/2023, 07/10/2021, Additional history exists Hypertension/CHF/CAD Annual BMP Blood Test 09/05/2025 09/05/2024, 02/28/2024, 01/17/2024, Additional history exists Cholesterol Screening (Lipid Panel) 10/23/2029 10/23/2024, 02/28/2024, 12/06/2023 DTaP,Tdap,and Td Vaccines (3 - Td or Tdap) 09/02/2031 09/01/2021, 04/07/2009 Pneumococcal Vaccine: 50+ Years Completed 04/16/2017, 02/19/2014, 03/25/2003 Zoster Vaccines Completed 03/23/2023, 03/19, 12/25/2017 Influenza Vaccine Completed 03/07/2024, , 03/02/2022, Additional history exists RSV Immunization Adult Patients Completed 03/20/2024 Breast Cancer Screening Discontinued 10/15/19, 09/27/2023, 09/27/2023, Additional history exists HIB Vaccines Aged Out No longer eligi ble based on patient's age to complete this topic HPV Vaccines Aged Out No longer eligi ble based on patient's age to complete this topic Hepatitis A Vaccines Aged Out No long er eligible based on patient's age to complete this topic Hepatitis B Vaccines Aged Out No long er eligible based on patient's age to complete this topic IPV Vaccines Aged Out No longer eligi ble based on patient's age to complete this topic MMR Vaccines Aged Out No longer eligi ble based on patient's age to complete this topic Meningococcal ACWY Vaccine Aged Out N o longer eligible based on patient's age to complete this topic Meningococcal B Vaccine Aged Out No l onger eligible based on patient's age to complete this topic RSV Immunization Patients Under 20 months Aged Out No longer eligible based on patient's age to complete this topic Varicella Vaccines Aged Out No longer eligible based on patient's age to complete this topic Procedures Procedure Name Priority Date/Time Associated Diagnosis Comments THYROID STIMULATING HORMONE Routine 10/23/2024 9:58 AM EDT Acquired hypothyroidism LIPID PANEL WITH REFLEX TO DIRECT LDL Routine 10/23/2024 9:58 AM EDT Coronary artery disease, unspecified vessel or lesion type, unspecified whether angina present, unspecified whether citizen [place] or transplanted heart MG MAMMO DIGITAL SCREENING W LION BILAT Routine 10/14/2024 8:05 AM EDT Encounter for screening mammogram for breast cancer ECG 12-LEAD Routine 09/17/2024 1:46 PM EDT Coronary artery disease, unspecified vessel or lesion type, unspecified whether angina present, unspecified whether citizen [place] or transplanted heart CBC WITH AUTO DIFFERENTIAL Routine 09/05/2024 9:13 AM EDT Bone marrow hyperplasia BASIC METABOLIC PANEL Routine 09/05/2024 9:13 AM EDT Primary hypertension CBC AND DIFFERENTIAL Routine 09/05/2024 9:13 AM EDT Bone marrow hyperplasia THYROID STIMULATING HORMONE Routine 09/05/2024 9:13 AM EDT Acquired hypothyroidism CT CHEST WO CONTRAST Routine 08/20/2024 8:56 AM EST History of lung cancer CT LUNG SCREENING LOW DOSE Routine 03/14/2023 1:48 PM EDT Personal history of nicotine dependence from Last 3 Months or Most Recently Relevant to Health Maintenance Results * (ABNORMAL) Lipid panel with reflex to direct LDL (10/23/2024 9:58 AM EDT) Cholesterol 190 0 - 200 mg/dL LAB CHEMISTRY METHOD 10/23/2024 1:56 PM EDT [facility] Triglycerides 180(H) 0 - 150 mg/dL LAB CHEMISTRY METHOD 10/23/2024 1:56 PM EDT [facility] HDL 57 >=40 mg/dL LAB CHEMISTRY METHOD 10/23/2024 1:56 PM EDT [facility] LDL Calculated 97 0 - 100 mg/dL LAB CHEMISTRY METHOD 10/23/2024 1:56 PM EDT [facility] VLDL Cholesterol Moy 36 mg/dL LAB CHEMISTRY METHOD 10/23/2024 1:56 PM EDT [facility] Non HDL Chol. (LDL+VLDL) 133 <145 mg/dL LAB CHEMISTRY METHOD 10/23/2024 1:56 PM EDT [facility] Chol/HDL Ratio 3.3 0.0 - 4.4 LAB CHEMISTRY METHOD 10/23/2024 1:56 PM EDT [facility] Blood Venous blood specimen / Unknown Venipuncture / Unknown 10/23/2024 9:58 AM EDT 10/23/2024 9:59 AM EDT us Aurelia Hart NP LAB BLOOD ORDERABLES Final Res ult [facility] [address] [place] [address], * Thyroid stimulating hormone (10/23/2024 9:58 AM EDT) Only the most recent of2 resultswithin the time period is included. TSH 1.82 0.40 - 4.00 mcIU/mL LAB CHEMISTRY METHOD 10/23/2024 3:58 PM EDT [facility] Blood Venous blood specimen / Unknown Venipuncture / Unknown 10/23/2024 9:58 AM EDT 10/23/2024 9:59 AM EDT us Clara Nelson MD LAB BLOOD ORDERABLES Final Resul t [facility] [address] [place] [address], [place] [phone] * MG Mammo Digital Screening w Lion bilat (10/14/2024 8:05 AM EDT) Anatomical Region Laterality Modality Breast Bilateral Mammography 10/14/2024 6:31 PM EDT Impressions 10/14/2024 6:39 PM EDT 1. No mammographic evidence of malignancy 2. Scattered fibroglandular tissue BI-RADS CATEGORY: 2 - BENIGN RECOMMENDATION: Screening bilateral mammogram is recommended in 1 year. Mammo Location: [facility], [address] [place] [address], [id number], . -------- FINAL REPORT -------- Dictated By: Vic Fairbanks Dictated Date: 10/14/2024 18:31 ET Assigned Physician: Vic Fairbanks Reviewed and Electronically Signed By: Vic Fairbanks Signed Date: 10/14/2024 18:39 ET Workstation ID: [id number] Transcribed By: Self Edit Transcribed Date: 10/14/2024 18:31 ET Narrative 10/14/2024 6:39 PM EDT A BILATERAL DIGITAL 3D SCREENING MAMMOGRAPHY HISTORY: Routine screening. ??Family history of breast cancer in sister. ??Family history of breast cancer in grandmother COMPARISON: Multiple priors dating back to 07/29/2020 Technique: Bilateral full field digital mammography (3D) was performed using standard CC and MLO projections CAD ??was used to evaluate this mammogram. FINDINGS: Right: No suspicious masses, groups of microcalcification or areas of architectural distortion identified. Stable typically benign parenchymal asymmetries. Left: No suspicious masses, groups of microcalcification or areas of architectural distortion identified. Stable typically benign parenchymal asymmetries. BREAST DENSITY: B - There are scattered areas of fibroglandular density. Procedure Note Vic Fairbanks MD - 10/14/2024 A BILATERAL DIGITAL 3D SCREENING MAMMOGRAPHY HISTORY: Routine screening. Family history of breast cancer in sister.Family history of breast cancer in grandmother COMPARISON: Multiple priors dating back to 07/29/2020 Technique: Bilateral full field digital mammography (3D) was performedusing standard CC and MLO projections CAD was used to evaluate this mammogram. FINDINGS: Right: No suspicious masses, groups of microcalcification or areas ofarchitectural distortion identified. Stable typically benign parenchymalasymmetries. Left: No suspicious masses, groups of microcalcification or areas ofarchitectural distortion identified. Stable typically benign parenchymalasymmetries. BREAST DENSITY: B - There are scattered areas of fibroglandular density. IMPRESSION: 1. No mammographic evidence of malignancy 2. Scattered fibroglandular tissue BI-RADS CATEGORY: 2 - BENIGN RECOMMENDATION: Screening bilateral mammogram is recommended in 1 year. Mammo Location: [facility], [address] [place] [address], [address], . -------- FINAL REPORT -------- Dictated By: Vic Fairbanks Dictated Date: 10/14/2024 18:31 ET Assigned Physician: Vic Fairbanks Reviewed and Electronically Signed By: Vic Fairbanks Signed Date: 10/14/2024 18:39 ET Workstation ID: [id number] Transcribed By: Self Edit Transcribed Date: 10/14/2024 18:31 ET Clara Nelson MD IMG BI PROCEDURES Final Result * ECG 12 lead (09/17/2024 1:46 PM EDT) Ventricular Rate ECG 77 BPM GEMUSE Atrial Rate 77 BPM GEMUSE P-R Interval 152 ms GEMUSE QRS Duration 86 ms GEMUSE Q-T Interval 368 ms GEMUSE QTc 416 ms GEMUSE P Wave [place] 14 degrees GEMUSE R [place] 83 degrees GEMUSE T [place] 31 degrees GEMUSE ECG Interpretation Normal sinus rhythm Normal ECG When compared with ECG of 22-AUG-2023 22:01, Sinus rhythm has replaced Atrial flutter Confirmed by JEREMIAH MEREDITH ([id number]) on 09/18/2024 1:53:25 PM GEMUSE 09/17/2024 1:26 PM EDT 09/18/2024 1:53 PM EDT us Aurelia Hart EXHIBITION DESIGNER ECG ORDERABLES Edited Result - Final GEMUSE * (ABNORMAL) CBC auto differential (09/05/2024 9:13 AM EDT) WBC 8.9 4.8 - 10.8 K/mcL LAB [facility]ETOLOG[facility] RBC 4.10 3.80 - 4.80 M/mcL LAB HEMETOLOGY METHOD 09/05/2024 10:13 AM [facility] Hemoglobin 13.4 11.5 - 16.0 g/dL LAB HEMETOLOGY METHOD 09/05/2024 10:13 AM [facility] Hematocrit 43.6 35.0 - 47.0 % LAB HEMETOLOGY METHOD 09/05/2024 10:13 AM [facility] MCV 107.1(H) 79.0 - 98.0 FL LAB HEMETOLOGY METHOD 09/05/2024 10:13 AM [facility] MCH 32.9(H) 27.0 - 32.0 pcg LAB HEMETOLOGY METHOD 09/05/2024 10:13 AM [facility] MCHC 30.7(L) 32.0 - 37.0 g/dL LAB HEMETOLOGY METHOD 09/05/2024 10:13 AM [facility] RDW 12.8 11.0 - 15.0 % LAB HEMETOLOGY METHOD 09/05/2024 10:13 AM [facility] Platelets 164 130 - 400 K/mcL LAB HEMETOLOGY METHOD 09/05/2024 10:13 AM [facility] MPV 11.7(H) 7.0 - 11.0 FL LAB HEMETOLOGY METHOD 09/05/2024 10:13 AM [facility] NRBC 0.0 <1.0 % LAB HEMETOLOGY METHOD 09/05/2024 10:13 AM [facility] NRBC Absolute 0.00 <0.10 K/[facility] HEMETOLOGY METHOD 09/05/2024 10:13 AM [facility] Neutrophils Relative 63.2 % LAB HEMETOLOGY METHOD 09/05/2024 10:13 AM [facility] Lymphocytes Relative 24.1 % LAB HEMETOLOGY METHOD 09/05/2024 10:13 AM [facility] Monocytes Relative 8.9 % LAB HEMETOLOGY METHOD 09/05/2024 10:13 AM [facility] Eosinophils Relative 2.9 % LAB HEMETOLOGY METHOD 09/05/2024 10:13 AM [facility] Basophils Relative 0.7 % LAB HEMETOLOGY METHOD 09/05/2024 10:13 AM [facility] Immature Granulocytes Relative 0.2 % LAB HEMETOLOGY METHOD 09/05/2024 10:13 AM [facility] Neutrophils Absolute 5.59 1.50 - 7.00 K/[facility] HEMETOLOGY METHOD 09/05/2024 10:13 AM [facility] Lymphocytes Absolute 2.13 1.00 - 5.00 K/[facility] HEMETOLOGY METHOD 09/05/2024 10:13 AM [facility] Monocytes Absolute 0.79 0.20 - 1.00 K/mcL LAB HEMETOLOGY METHOD 09/05/2024 10:13 AM [facility] Eosinophils Absolute 0.26 0.00 - 0.50 K/mcL LAB HEMETOLOGY METHOD 09/05/2024 10:13 AM EDT [facility] Basophils Absolute 0.06 0.00 - 0.20 K/[facility] HEMETOLOGY METHOD 09/05/2024 10:13 AM EDT [facility] Immature Granulocytes Absolute 0.02 0.00 - 0.03 K/[facility] HEMETOLOGY METHOD 09/05/2024 10:13 AM EDT [facility] Blood Venous blood specimen / Unknown Venipuncture / Unknown 09/05/2024 9:13 AM EDT 09/05/2024 9:13 AM EDT us Marco Hunter MD LAB BLOOD ORDERABLES Final Result [facility] [address] [place] [address], * (ABNORMAL) Basic metabolic panel (09/05/2024 9:13 AM EDT) Sodium 141 133 - 145 mmol/L LAB CHEMISTRY METHOD 09/05/2024 2:53 PM [facility] Potassium 4.9 3.5 - 5.5 mmol/L LAB CHEMISTRY METHOD 09/05/2024 2:53 PM [facility] Chloride 109 96 - 110 mmol/L LAB CHEMISTRY METHOD 09/05/2024 2:53 PM [facility] CO2 26 21 - 32 mmol/L LAB CHEMISTRY METHOD 09/05/2024 2:53 PM [facility] Anion Gap 6 3 - 11 LAB CHEMISTRY METHOD 09/05/2024 2:53 PM [facility] Glucose 127(H) 70 - 100 mg/dL LAB CHEMISTRY METHOD 09/05/2024 2:53 PM [facility] BUN 34(H) 5 - 25 mg/dL LAB CHEMISTRY METHOD 09/05/2024 2:53 PM EDT [facility] Creatinine 1.18(H) 0.50 - 1.10 mg/dL LAB CHEMISTRY METHOD 09/05/2024 2:53 PM EDT [facility] eGFR 48(L) >=60 mL/min/1. 73m2 LAB CHEMISTRY METHOD 09/05/2024 2:53 PM EDT [facility] Comment:Calculation based on the??Chronic Kidney Disease Epidemiology Collaboration (CKD-EPI) equation refit??without adjustment for race. BUN/Creatinine Ratio 28.8 LAB CHEMISTRY METHOD 09/05/2024 2:53 PM EDT [facility] Calcium 9.5 8.5 - 10.5 mg/dL LAB CHEMISTRY METHOD 09/05/2024 2:53 PM EDT [facility] Blood Venous blood specimen / Unknown Venipuncture / Unknown 09/05/2024 9:13 AM EDT 09/05/2024 9:13 AM EDT us Clara Nelson MD LAB BLOOD ORDERABLES Final Resul t [facility] [address] [place] [address], [place] [phone] * CT Chest wo Contrast (08/20/2024 8:56 AM EST) Anatomical Region Laterality Modality Body Computed Tomogra phy 08/22/2024 6:54 AM EST Impressions 08/22/2024 7:11 AM EST Evidence of prior right upper lobectomy. No convincing evidence of residual, recurrent or new malignancy. Underlying emphysema. ?? -------- FINAL REPORT -------- Dictated By: Oz Lockett Dictated Date: 08/22/2024 06:54 ET Assigned Physician: Oz Lockett Reviewed and Electronically Signed By: Oz Lockett Signed Date: 08/22/2024 07:11 ET Workstation ID: [id number] Transcribed By: Self Edit Transcribed Date: 08/22/2024 06:54 ET Narrative 08/22/2024 7:11 AM EST EXAMINATION: CT CHEST WITHOUT CONTRAST CLINICAL INFORMATION: Status post right upper lobectomy. ??History of lung cancer COMPARISON: Portions of previous 03/07/2024 ?? TECHNIQUE: Multidetector CT. Examination of the chest. Examination of the chest without IV contrast. Reformatting in the coronal and sagittal planes. DLP: 303 mGy-cm Dose optimization was performed including the use of low-dose iterative reconstruction technique with automatic exposure control based on patient size. Type of contrast: None Volume of IV contrast: None Volume of contrast discarded: 0 mL FINDINGS: LUNG: Evidence of right upper lobectomy. No mass at the lobectomy stump. There is a nodule in the lateral aspect of the left lower lobe peripherally 08/20/2024-0.6 cm (3/151) 03/07/2024-0.6 cm 06/16/2023-0.6 cm There are scattered micronodules all of which measure less than 0.4 cm which appear unchanged. There is no new suspicious mass or nodule. Moderate underlying centrilobular emphysema. There are some peripheral reticular opacities. There is some linear density at the anterolateral margin of the right lower lobe with some volume loss. This appears likely fibrotic although minimally more prominent than most recent previous. There is no honeycomb formation. ?? MEDIASTINUM: ??There are no enlarged mediastinal or hilar lymph nodes. No suspicious abnormality of the esophagus CARDIAC: The heart is not enlarged. No pericardial fluid or thickening ?? CORONARY CALCIFICATION: ??There are moderate coronary calcifications. VASCULAR: There is no thoracic aortic aneurysm. The main pulmonary artery is normal caliber. There is severe arterial calcification. ?? PLEURA: There is no pleural fluid or pneumothorax ?? AXILLA/CHEST WALL: There are no enlarged axillary lymph nodes. No chest wall mass demonstrated ?? VISUALIZED UPPER ABDOMEN: ??No suspicious abnormality on limited assessment of the visualized upper abdomen. Circumscribed small low attenuating lesion in the left lobe liver anteriorly is unchanged. No change in the adrenals. MUSCULOSKELETAL: No suspicious focal bony lesion. ?? Procedure Note Oz Lockett MD - 08/22/2024 EXAMINATION: CT CHEST WITHOUT CONTRAST CLINICAL INFORMATION: Status post right upper lobectomy. History of lung cancer COMPARISON: Portions of previous 03/07/2024 TECHNIQUE: Multidetector CT. Examination of the chest. Examination of the chest without IV contrast. Reformatting in the coronal and sagittal planes. DLP: 303 mGy-cm Dose optimization was performed including the use of low-dose iterativereconstruction technique with automatic exposure control based on patientsize. Type of contrast: None Volume of IV contrast: None Volume of contrast discarded: 0 mL FINDINGS: LUNG: Evidence of right upper lobectomy. No mass at the lobectomy stump. There is a nodule in the lateral aspect of the left lower lobeperipherally 08/20/2024-0.6 cm (3/151) 03/07/2024-0.6 cm 06/16/2023-0.6 cm There are scattered micronodules all of which measure less than 0.4 cmwhich appear unchanged. There is no new suspicious mass or nodule. Moderate underlying centrilobular emphysema. There are some peripheralreticular opacities. There is some linear density at the anterolateralmargin of the right lower lobe with some volume loss. This appears likelyfibrotic although minimally more prominent than most recent previous. There is no honeycomb formation. MEDIASTINUM: There are no enlarged mediastinal or hilar lymph nodes. Nosuspicious abnormality of the esophagus CARDIAC: The heart is not enlarged. No pericardial fluid or thickening CORONARY CALCIFICATION: There are moderate coronary calcifications. VASCULAR: There is no thoracic aortic aneurysm. The main pulmonary arteryis normal caliber. There is severe arterial calcification. PLEURA: There is no pleural fluid or pneumothorax AXILLA/CHEST WALL: There are no enlarged axillary lymph nodes. No chestwall mass demonstrated VISUALIZED UPPER ABDOMEN: No suspicious abnormality on limited assessmentof the visualized upper abdomen. Circumscribed small low attenuatinglesion in the left lobe liver anteriorly is unchanged. No change in theadrenals. MUSCULOSKELETAL: No suspicious focal bony lesion. IMPRESSION: Evidence of prior right upper lobectomy. No convincing evidence of residual, recurrent or new malignancy. Underlying emphysema. -------- FINAL REPORT -------- Dictated By: Oz Lockett Dictated Date: 08/22/2024 06:54 ET Assigned Physician: Oz Lockett Reviewed and Electronically Signed By: Oz Lockett Signed Date: 08/22/2024 07:11 ET Workstation ID: [id number] Transcribed By: Self Edit Transcribed Date: 08/22/2024 06:54 ET us Liane Quiros EXHIBITION DESIGNER IMG CT PROCEDURES Final Res ult * CT LUNG SCREENING LOW DOSE (03/14/2023 1:48 PM EDT) Anatomical Region Laterality Modality Computed Tomogra phy 03/14/2023 8:59 AM EDT Narrative 03/14/2023 1:48 PM EDT [facility] Diagnostic Imaging Department [address] [place] [address] [id number] Patient: ??GENA,HERNANDO ?/Age/Sex: 1950 - 72 - F Unit#: ??[id number] ? Location/Status: ??SPDICATLS/REG CLI ? Mnemonic/Ordering Site: ??[facility] Ordering Physician: ??JADE PEREZ MD CT Lung Screening Low Dose - 03/14/23 - 908 Report Status:Signed History: ??72 year-old 58 pack-year current smoker, asymptomatic, for lung cancer screening Comparison: 03/13/2022 Technique: Helical volumetric imaging of the thorax was performed, using low- dose technique, without IV contrast. DLP: 166.46 mGy/cm ??CTDIvol: 4.83 mGy [employer] VCT Iterative reconstruction technique Findings: Chest: There is no definite evidence for mediastinal or hilar adenopathy. There is mild bilateral hilar prominence probably vascular and unchanged. Thoracic aorta is ectatic and is extensive calcification in the aortic arch. Heart size normal. ??There is scattered coronary artery calcification. ??There is no pericardial or pleural effusion. There is chronic obstructive pulmonary disease with emphysematous changes. There is a bullous lesion in the right upper lobe with adjacent pleural thickening and some nodularity along its inferior and lateral aspect which has progressed. ??There is also a focal infiltrate and/or atelectasis with air bronchograms inferior aspect of the lingula increased since the previous. ??There are small calcified granuloma in the right upper lobe there is a tiny nodule in the left upper lobe which appears calcified. ??Calcified granuloma in the right middle lobe. ??There is a perivascular nodule in the left lower lobe seen on image 139 series 3 measuring maximally 6 mm in diameter unchanged. ??No new no other new nodule. Abdomen: This study was performed without contrast and with lower than standard dose. These factors reduce the sensitivity for detection of small lesions in the upper abdomen. There is thickening of the left adrenal gland unchanged. ??Views of the upper abdomen are limited. ??There are degenerative changes of the thoracic spine again. Impression: 1. ??There is chronic obstructive pulmonary disease with emphysematous changes again noted. ??There is a bullous lesion in the right upper lobe with adjacent pleural thickening and nodularity which is progressed since the previous examination. ??Differential diagnosis includes inflammatory versus neoplastic process. ??Additionally there is an infiltrate or atelectasis with air bronchograms in the lingula which has also progressed and is probably inflammatory in nature. ??Recommend short-term interval follow-up ??examination to reassess. 2. ??Multiple small pulmonary nodules many of which appear calcified stable and unchanged. Lung RADS 0: ??Incomplete. ??Findings suggestive of an inflammatory or infectious process. [id number] G9637 G9557 G9551 Dictating Physician: ??RUKHSANA SARAVIA MD Electronically Signed by: ??RUKHSANA SARAVIA MD Dic Date/Time: ??03/14/23 1335 Sign date/Time: ??03/14/23 1348 Procedure Note Rukhsana Saravia MD - 07/24/2023 [facility] Diagnostic Imaging Department [address] [place] [address] [id number] Patient: HERNANDO RUELAS /Age/Sex: 1950 - 72 - F Unit#: [id number] Location/Status: SPDICATLS/REG CLI [facility] Ordering Physician: JADE PEREZ MD CT Lung Screening Low Dose - 03/14/23908 Report Status:Signed History: 72 year-old 58 pack-year current smoker, asymptomatic, for lungcancer screening Comparison: 03/13/2022 Technique: Helical volumetric imaging of the thorax was performed, usinglow- dose technique, without IV contrast. DLP: 166.46 mGy/cm CTDIvol: 4.83 mGy [employer] VCT Iterative reconstruction technique Findings: Chest: There is no definite evidence for mediastinal or hilaradenopathy. There is mild bilateral hilar prominence probably vascular andunchanged. Thoracic aorta is ectatic and is extensive calcification in the aorticarch. Heart size normal. There is scattered coronary artery calcification.There is no pericardial or pleural effusion. There is chronic obstructive pulmonary disease with emphysematouschanges. There is a bullous lesion in the right upper lobe with adjacent pleural thickening and some nodularity along its inferior and lateral aspect whichhas progressed. There is also a focal infiltrate and/or atelectasis withair bronchograms inferior aspect of the lingula increased since the previous.There are small calcified granuloma in the right upper lobe there is a tinynodule in the left upper lobe which appears calcified. Calcified granuloma in theright middle lobe. There is a perivascular nodule in the left lower lobe seenon image 139 series 3 measuring maximally 6 mm in diameter unchanged. No newno other new nodule. Abdomen: This study was performed without contrast and with lower thanstandard dose. These factors reduce the sensitivity for detection of small lesionsin the upper abdomen. There is thickening of the left adrenal gland unchanged.Views of the upper abdomen are limited. There are degenerative changes of the thoracic spine again. Impression: 1. There is chronic obstructive pulmonary disease with emphysematouschanges again noted. There is a bullous lesion in the right upper lobe withadjacent pleural thickening and nodularity which is progressed since the previous examination. Differential diagnosis includes inflammatory versusneoplastic process. Additionally there is an infiltrate or atelectasis with air bronchograms in the lingula which has also progressed and is probably inflammatory in nature. Recommend short-term interval follow-upexamination to reassess. 2. Multiple small pulmonary nodules many of which appear calcified stableand unchanged. Lung RADS 0: Incomplete. Findings suggestive of an inflammatory orinfectious process. 57491 G9637 G9557 G9551 Dictating Physician: RUKHSANA SARAVIA MD Electronically Signed by: RUKHSANA SARAVIA MD Dic Date/Time: 03/14/23 1335 Sign date/Time: 03/14/23 1348 Jade Perez MD IMG CT PROCEDURES Final Result from Last 3 Months or Most Recently Relevant to Health Maintenance Insurance MEDICARE [facility] Advance Directives Documents on File Type Date Recorded Patient Obstetrician/Gynecologist Expl anation Health Care Decision (hx) 01/02/2019 AD ARANDA DIRECTIVE Health Care Decision (hx) 01/02/2019 AD ARANDA DIRECTIVE Health Care Decision (hx) 01/02/2019 AD ARANDA DIRECTIVE Health Care Decision (hx) 01/02/2019 AD ARANDA DIRECTIVE Health Care Decision (hx) 01/02/2019 AD ARANDA DIRECTIVE Health Care Decision (hx) 01/02/2019 AD ARANDA DIRECTIVE Health Care Decision (hx) 01/02/2019 AD ARANDA DIRECTIVE Health Care Decision (hx) 01/02/2019 AD ARANDA DIRECTIVE Health Care Decision (hx) 01/02/2019 AD ARANDA DIRECTIVE Health Care Decision (hx) 01/02/2019 AD ARANDA DIRECTIVE Health Care Decision (hx) 01/02/2019 AD ARANDA DIRECTIVE Health Care Decision (hx) 01/02/2019 AD ARANDA DIRECTIVE Health Care Decision (hx) 01/02/2019 AD ARANDA DIRECTIVE Health Care Decision (hx) 01/02/2019 AD ARANDA DIRECTIVE Health Care Decision (hx) 01/02/2019 AD ARANDA DIRECTIVE Health Care Decision (hx) 01/02/2019 AD ARANDA DIRECTIVE Health Care Decision (hx) 01/02/2019 AD ARANDA DIRECTIVE Health Care Decision (hx) 01/02/2019 AD ARANDA DIRECTIVE Care Teams Hyperbaric Technician Relationship Specialty Start Date End Date Clara Nelson MD [address] [place] [id number] PCP - General Internal Medicine 04/25/21
--- OUTSIDE RECORDS SUMMARY | 2024-10-28 08:07 | XMS_ITS | Encounter Summary ---
Author Organization [facility] Address [address] [place] [address] Care Team Providers Care Form Tamper Operator Name Role Phone Clara Nelson MD Primary Care Provider [phone] Encounter Details Date Type Department Care Team (Late st Contact Info) Description 03/19/2024 9:43 AM EDT Hospital Encounter TH HISTORIC ENCOUNTERS EASTERN CONVERSION ONLY Marco Hunter MD [address] [place] [phone] Social History Tobacco Use Types Packs/Day [...] 10:12 AM Encounter Date: 03/19/2024 Status: Addendum Book Binder: Marco Hunter MD (Physician) Related Notes: Original Note by Macro Hunter MD (Physician) filed at 03/19/2024 10:06 [...] cm adenocarcinoma, 80% acinar type, 20% solid, PDX-4-pqvrdver, e64-uaeyyhee. Visceral pleural invasion was focally present. LVI was not present. 0 of 3 parenchymal nodes;0 of 1 R4 nodes, 0 of 2 sump nodes, 0 of 2 right level 9 nodes; and 0 of 1 right level 10 nodes were involved with tumor. APD-L1 TPS was 95%. A KRAS G12 C mutation was detected. EGFR, BRAF, ALK, DLH0skalqxllh were not detected. She reports mild postthoracotomy [...] lobe lung adenocarcinoma, PD-L1 TPS 95, KRAS [id number]-[id number]. The patient underwent a right upper lobectomy [...] 8:30 AM EDT Office Visit Adult Medicine [facility] [address] [place] [phone] Clara Nelson MD [address] [place] [phone] 03/23/2025 9:00 AM EDT Office Visit [facility] Hematology Oncology [address] [place] [phone] Marco Hunter MD [address] [place] [phone] 03/23/2025 11:10 AM EDT Office Visit [facility] Cardiology [facility] [address] [place] [address] [address] [place] [phone] Aurelia Hart, AMELIA [address] [place] [address] [place] [address] documented as of this encounter Procedures Procedure [...] on filedocumented in this encounter Care Teams Form Tamper Operator Relationship Specialty Start Date End Date Clara Nelson MD [address] [place] [address] PCP - General Internal Medicine 04/25/21 documented as of this encounter
--- OUTSIDE RECORDS SUMMARY | 2024-10-28 08:07 | XMS_ITS | Patient Health Record ---
Author Organization [facility] [place] Address [address] [place] [address] Care Team Providers Care Operating Engineer Name Role Phone Clara Nelson Primary Care Provider UnavailDeidra Padilla Unavailable [phone] Allergies Allergen (clinical drug ingredient) Drug/Non Drug Allergy documented on EMR Reaction Allergy Type Onset Date Status aspirin Aspirin Unknown Drug Allergy Active Penicillin Unknown Drug Allergy Active Results Component Value Reference Range Notes HEMOGLOBIN A1C (GLYCOHEMOGLO BIN) Reviewed date:09/25/2024 12:02:37 PM Interpretation: Performing Lab: Notes/Report: HEMOGLOBIN A1C % (HH) 5.4 Reason For Referral Diagnosis 1 Type 2 diabetes nora itus with diabetic polyneuropathy (E11.42) Diagnosis 2 Other hammer toe(s) (acquired), right foot (M20.41) Diagnosis 3 Other hammer toe(s) (acquired), left foot (M20.42) Diagnosis 4 Tinea unguium (B35.1 ) Diagnosis 5 Muscle cramp, noctur nal (R25.2) Diagnosis 6 Xerosis of skin (L85 .3) Referring Provider First Name Clara Referring Provider Last Name Omar Referred Organization [facility] Referred Provider Deidra Almodovar Referred Address [address],[place], [place],[address], Referred Provider Specialty Podiatry Referral Priority Routine Medications Medication SIG (Take, Route, Frequency, Duration) Notes Start Date End Date Status Simvastatin 20 MG Oral for 90 Days Active Levothyroxine Sodium 125 MCG Oral for 90 Days Active Atenolol 50 MG Oral for 90 Days Active Extra Depth Orthopedic Shoes (1 Pair) with Customized Heat Molded Multidensity Innersoles (3 Pair) as directed Dx: NIDDM/Polyneuropathy (E11.42), Hammertoe Foot Deformity (M20.41,M20.42), Preulcerative Skin Lesion(s) (L85.1 11/15/2023 Active Compression Stockings 20-30mm Hg 1 pair wear daily for 30 days Active Ammonium Lactate 12 % 1 application Exte rnally Twice a day for 30 days Active Lisinopril 10 MG Oral for 90 Days Active Buprenorphine 7.5 MCG/HR 1 patch to skin Transdermal 07/04/2023 Active Immunizations Vaccine Route Administration Date Status [...] ast year? No Points 0 Interpretation Negative Problems Problem Type SNOMED Code ICD Code Onset Dates Problem Status W/U Status Risk Notes Problem Acquired hammer toe of right foot (4244074206891865 ) Other hammer toe(s) (acquired), right foot (M20.41) Active confirmed Problem Acquired hammer toe of left foot (1030275945814447 ) Other hammer toe(s) (acquired), left foot (M20.42) Active confirmed Problem Polyneuropathy due to type 2 diabetes mellitus (680684581) Type 2 diabetes mellitus with diabetic polyneuropathy (E11.42) Active confirmed Vital Signs Blood pressure diastolic 88 mm Hg 09/25/2024 Height 5ft 6in in 09/25/2024 Blood pressure systolic 130 mm Hg 09/25/2024 Weight 182 lbs 09/25/2024 BMI 29.37 kg/m2 09/25/2024 Procedures Procedure Date Ordered Date Performed Result Body Sit e 72144-IQQEWKE NAIL, 6 OR MORE 11/15/2023 N/A 08634-QUVZ SKIN LESIONS, 2 TO 4 11/15/2023 N/A 11692 I&D ABSCESS- SIMPLE,SINGLE 03/10/2024 N/A 52317-VLGW SKIN LESIONS, 2 TO 4 03/10/2024 N/A W6180-DCCQQSTH DYSTROPHIC NAILS ANY # 03/10/2024 N/A 82635-SERT SKIN LESIONS, 2 TO 4 06/26/2024 N/A X3878-LCWEXKBL DYSTROPHIC NAILS ANY # 06/26/2024 N/A 93007-Ywbkiaqp Plate 09/25/2024 N/A 37064-ZQAJ SKIN LESIONS, 2 TO 4 09/25/2024 N/A D1288-VDOGUKQD DYSTROPHIC NAILS ANY # 09/25/2024 N/A Encounters Encounter Location Date Provider Diagnosis [address] [address] 11/15/2023 Deidra Black Type 2 diabetes mellitus with diabetic polyneuropathy E11.42 ; Other hammer toe(s) (acquired), right foot M20.41 ; Xerosis of skin L85.3 ; Other hammer toe(s) (acquired), left foot M20.42 ; Tinea unguium B35.1 and Former smoker Z87.[address] [address] 03/10/2024 Deidra Black Type 2 diabetes mellitus with diabetic polyneuropathy E11.42 ; Tinea unguium B35.1 ; Muscle cramp, nocturnal R25.2 and Abscess of toe, left L02.[address] [address] 06/26/2024 Deidra Black Type 2 diabetes mellitus with diabetic polyneuropathy E11.42 ; Tinea unguium B35.1 ; Muscle cramp, nocturnal R25.2 ; Other hammer toe(s) (acquired), left foot M20.42 and Other hammer toe(s) (acquired), right foot M20.[address] [address] 09/25/2024 Deidra Black Type 2 diabetes mellitus with diabetic polyneuropathy E11.42 ; Edema, lower extremity R60.0 ; Tinea unguium B35.1 ; Muscle cramp, nocturnal R25.2 and Ingrown nail L60.[address] [address] 09/25/2024 Deidra Hill Encounter Date Diagnosis (ICD Code) Assessment Notes Treatment Notes Treatment Clinical Notes Section Notes 11/15/2023 Type 2 diabetes mellitus with diabetic polyneuropathy (ICD-10 - E11.42) 03/10/2024 Type 2 diabetes mellitus with diabetic polyneuropathy (ICD-10 - E11.42) 06/26/2024 Type 2 diabetes mellitus with diabetic polyneuropathy (ICD-10 - E11.42) 09/25/2024 Type 2 diabetes mellitus with diabetic polyneuropathy (ICD-10 - E11.42) 09/25/2024 Edema, lower extremity (ICD-10 - R60.0) 09/25/2024 Tinea unguium (ICD-10 - B35.1) 06/26/2024 Tinea unguium (ICD-10 - B35.1) 03/10/2024 Tinea unguium (ICD-10 - B35.1) 11/15/2023 Xerosis of skin (ICD-10 - L85.3) 11/15/2023 Other hammer toe(s) (acquired), right foot (ICD-10 - M20.41) Patient Educated with: DIABETIC FOOT CARE INSTRUCTIONS. pdf (DIABETIC FOOT CARE INSTRUCTIONS. pdf) 11/15/2023 Other hammer toe(s) (acquired), left foot (ICD-10 - M20.42) 03/10/2024 Muscle cramp, nocturnal (ICD-10 - R25.2) 06/26/2024 Muscle cramp, nocturnal (ICD-10 - R25.2) 09/25/2024 Muscle cramp, nocturnal (ICD-10 - R25.2) 06/26/2024 Other hammer toe(s) (acquired), left foot (ICD-10 - M20.42) 09/25/2024 Ingrown nail (ICD-10 - L60.0) 03/10/2024 Abscess of toe, left (ICD-10 - L02.612) Patient Educated with: WOUND CARE INSTRUCTIONS. pdf (WOUND CARE INSTRUCTIONS. pdf) 11/15/2023 Tinea unguium (ICD-10 - B35.1) 11/15/2023 Former smoker (ICD-10 - Z87.891) 06/26/2024 Other hammer toe(s) (acquired), right foot (ICD-10 - M20.41) Patient Educated with: DIABETIC FOOT CARE INSTRUCTIONS. pdf (DIABETIC FOOT CARE INSTRUCTIONS. pdf) 03/10/2024 Other 09/25/2024 Other Plan Of Treatment Pending Test Test Name Order Date 91194-JNWPWTV NAIL, 6 OR MORE 08/16/2023 30518-YXARNHP NAIL, 6 OR MORE 11/15/2023 45731-Odudnnjd Plate 09/25/2024 99828 I&D ABSCESS- SIMPLE,SINGLE 024 18794-ACXR SKIN LESIONS, 2 TO 4 06/26/19 25 60053-OVJR SKIN LESIONS, 2 TO 4 03/10/20 24 40733-XVVX SKIN LESIONS, 2 TO 4 11/15/19 24 93504-CWRQ SKIN LESIONS, 2 TO 4 08/16/19 24 46118-OAWH SKIN LESIONS, 2 TO 4 09/26/19 25 S3720-ZQOGHXGH DYSTROPHIC NAILS ANY # U8282-YACWTHMP DYSTROPHIC NAILS ANY # V2681-FWLWKFKO DYSTROPHIC NAILS ANY # Next Appt Details Provider Name:Deidra Almodovar , 01/05/2025 08:15:00 AM, [address] [place] [address], [phone], Insurance Providers Payer Name Payer Address Payer Phone Subscriber Number Group Number Insured Name Patient Relationship to Insured Coverage Start Date Coverage End Date [address] [address] [phone] [id number] Tiffany Ruelas Self - patient is the insured Medical (General) History Medical History History ICD Code Back,Hip,and Knee pain Diabetic High blood pressure Rheumatic fever thyroid Measles Mumps Chicken pox Joint implants/screws Cancer Surgical History Surgery Date(Month/Year) hysterectomy appendectomy back surgery colonoscopy wisdom teeth extraction Tooth extraction lung surgery 08/21/23
--- OUTSIDE RECORDS SUMMARY | 2024-10-28 08:08 | XMS_ITS ---
Author Organization [facility] Ralf Villatoro Address [address] [place] [address] Care Team Providers Care Core Driller Helper Name Role Phone Clara Nelson Primary Care Provider Unavailabl e Deidra Almodovar Unavailable [phone] Allergies Allergen (clinical drug ingredient) Drug/Non Drug Allergy documented on EMR Reaction Allergy Type Onset Date Status aspirin Aspirin Unknown Drug Allergy Active Penicillin Unknown Drug Allergy Active REASON FOR VISIT At Risk Footcare, Foot/Leg pain, Toe Irritation Medications Medication SIG (Take, Route, Frequency, Duration) Notes Start Date End Date Status Simvastatin 20 MG Oral for 90 Days Active Extra Depth Orthopedic Shoes (1 Pair) with Customized Heat Molded Multidensity Innersoles (3 Pair) as directed Dx: NIDDM/Polyneuropathy (E11.42), Hammertoe Foot Deformity (M20.41,M20.42), Preulcerative Skin Lesion(s) (L85.1 11/15/2023 Active Atenolol 50 MG Oral for 90 Days Active Lisinopril 10 MG Oral for 90 Days Active Levothyroxine Sodium 125 MCG Oral for 90 Days Active Buprenorphine 7.5 MCG/HR 1 patch to skin Transdermal 07/04/2023 Active Ammonium Lactate 12 % 1 application Exte rnally Twice a day for 30 days Active Social History Tobacco Use: Social History Observation Description Date Details (start date - stop date) Former Smoker NA - NA Tobacco Use/Smoking Question Answer Notes Are you a: former smoker Additional Findings: Tobacco Non-User Current no n-smoker Tobacco use other than smoking: Question Answer Notes Are you an other tobacco user? No Vital Signs Height 5ft6in in 06/26/2024 Weight 182 lbs 06/26/2024 BMI 29.37 kg/m2 06/26/2024 Blood pressure systolic 130 mm Hg 06/26/19 25 Blood pressure diastolic 88 mm Hg 025 Procedures Procedure Date Ordered Date Performed Result Body Sit e 39757-TOZQ SKIN LESIONS, 2 TO 4 06/26/2024 N/A E9051-VSSMPCXU DYSTROPHIC NAILS ANY # 06/26/2024 N/A Encounters Encounter Location Date Provider Diagnosis [facility] [address] [address] 06/26/2024 Deidra Almodovar Type 2 diabetes mellitus with diabetic polyneuropathy E11.42 ; Tinea unguium B35.1 ; Muscle cramp, nocturnal R25.2 ; Other hammer toe(s) (acquired), left foot M20.42 and Other hammer toe(s) (acquired), right foot M20.41 Assessments Encounter Date Diagnosis (ICD Code) Assessment Notes Treatment Notes Treatment Clinical Notes Section Notes 06/26/2024 Type 2 diabetes mellitus with diabetic polyneuropathy (ICD-10 - E11.42) 06/26/2024 Tinea unguium (ICD-10 - B35.1) 06/26/2024 Muscle cramp, nocturnal (ICD-10 - R25.2) 06/26/2024 Other hammer toe(s) (acquired), left foot (ICD-10 - M20.42) 06/26/2024 Other hammer toe(s) (acquired), right foot (ICD-10 - M20.41) Patient Educated with: DIABETIC FOOT CARE INSTRUCTIONS. pdf (DIABETIC FOOT CARE INSTRUCTIONS. pdf) Plan Of Treatment Treatment Notes Assessment Notes Other hammer toe(s) (acquired), right fo ot Patient Educated with: DIABETIC FOOT CARE INSTRUCTIONS.pdf (DIABETIC FOOT CARE INSTRUCTIONS.pdf) Pending Test Test Name Order Date 32229-KWEY SKIN LESIONS, 2 TO 4 06/26/19 25 [id number] DYSTROPHIC NAILS ANY # Next Appt Details Follow Up: 3 Months, Reason: Provider Name:Deidra Almodovar , 01/05/2025 08:15:00 AM, [address] [place] [address], [phone], Procedure Notes * Category Sub-Category Detail Notes Keratoma Treatment Parring or Cutting o f [...] instrumentation by the physician of record - 89130 Nail Reduction Nail Reduction (-27) Trimming o [...] bed tissue - G0127 Progress Notes * GENAJulio COB:1950 (73 yo F)Acc No.[id number]:06/26/2024 Progress Note Patient:?Tiffany AVERY Provider:?Deidra Almodovar DPM :1950???Age:73 Y???Sex:Female D ate:06/26/2024 Address:[address] [place], [place] [id number] Pcp:Clara Nelson Subjective: * Chief Complaints: * ???At Risk FootcareFoot/Leg painToe Irritation * HPI: ???At Risk footcare:?Pt States Last PCP Visit:?Date?03/05/2024 ???Foot Pain:?Nature:?tightness, cramping, pulling, aching.?Location:?, LEFT foot/leg.?Duration:?several weeks.?Onset:?sudden.?Course:?, improved, at 50 %.?Aggravated:?Especially toward the end of the day/at rest/at night, stretching exercises.?Toe pain:?Location:?B/L feet.?Duration:?several years.?Course:?worse.?Aggravated by:?shoes, any pressure.?Treatments:?change in shoes- pt never went for the [employer]comm. shoes last year.? * ROS:?General/Constitutional:?Nausea?denies.?Vomiting?denies.?Hunger Thirst?denies.?Loss appetite?denies.?Chills?denies.?Fatigue?denies.?Fever?denies.?Night Sweats?denies.?Unexplained weight loss?denies.?Unexplained weight gain?denies.?HEENTM:?Dentures?denies.?Dizziness?denies.?Glasses/contacts?admits.?Retinopathy?den ies.?Blurred/double vision?denies.?TMJ?denies.?Discharge/drainage?denies.?Implants?denies.?Sore throat?denies.?Dental implants?denies.?Hard of hearing ?denies.?Difficulty chewing/swallowing/speaking?denies.?Nose bleeds?denies.?Sore mouth?denies.?Respiratory:?On O xygen?denies.?Pneumonia/pleurisy?denies.?Bronchitis?denies.?Emphysema?denies.?Co ughing?denies.?Cough blood?denies.?Shortness of breath?denies.?Wheezing?denies.?Cardiovascular:?Pacemaker?denies.?MVP?denies.?WPW?denies.?CHF?denies.?Heart attack?denies.?Septal defect?denies.?Rapid beat?denies.?Chest pain ?denies.?Atrial Fib.?denies.?Murmur/Palpitations?denies.?Gastrointestinal:?Hemorrhoids?denies.?Stomach/Abdominal pain?denies.?Dark blood stool?denies.?Irritable bowel ?denies.?Constipation?denies.?Diarrhea?denies.?Hematology:?Swelling?denies.?Clots?denies.?Varicose Veins?denies.?Bruising?denies.?Bleeding problem?denies.?Genitourinary:?Blood urine?denies.?Frequent/Painfu/urination/bladder control?denies.?Kidney stones?denies.?Infection (UTI)?denies.?Nephropathy?denies.?sex trans dis (STD)?denies.?Prostate?denies.?Musculoskeletal:?Hammertoes?, admits.?Bunions?denies.?Back Pain?denies.?Muscle Cramps/ Resting?denies.?Muscle cramps / walking?denies.?Generalized aches and pains?denies.?Weakness?denies.?Integ.:?Cota?denies.?Scars?denies.?Corns/calluses?denies.?Ingrown nails?admits.?Painful nails?admits.?Open Sores?denies.?Rashes?denies.?Neurologic:?Difficulty sleeping?denies.?Brain disorder?denies.?Numbness?denies.?Balance t rouble?denies.?Confusion?denies.?Fainting/blackouts?denies.?Tingling?denies.?Jose mors?denies.? * Medical History:? * Surgical History:?hysterecto my appendectomy back surgery colonoscopy wisdom teeth extraction Tooth extraction lung surgery 03/05/24 * Hospitalization/Major Diagno stic Procedure:?Denies Past Hospitalization * Family History:?Mother: dece ased, diagnosed with Unspecified essential hypertension, Family history of arthritis.?Father: .?Siblings: diagnosed with Other malignant neoplasm of unspecified site.? * Social History:?Tobacco Use:?Tobacco Use/Smoking?Are you a:?former smoker ?Additional Findings: Tobacco Non-User?Current non-smoker ?Tobacco use other than smoking?Are you an other tobacco user??No * Medications:?TakingSimvastat in 20 MG Tablet Oral [...] Allergies:?PenicillinAspirin yes[Allergies Verified] Objective: * Vitals:?Ht: 5ft6in, Wt:182, BMI:29.37, Shoe size: 9-9.5, BP:130/88mm Hg, BS: not taken, Ht-cm: 167.64 cm, Wt-k.55 kg. * Examination: ???Ophthalmology Referral: ?DIABETES EYE EXAM?Procedure Performed:?Yes ?Date of Exam Performed?08/17/2023 ?Findings of Diabetic Eye Exam:?no retinopathy?CQM Exceptions:: ?Hemoglobin A1c not performed?Reason:?No reason specified?General Examination: ?GENERAL APPEARANCE:?Denies fever, chills, malaise, lymphadenopathy.?FOOT EXAM:?Lower Extremity Neurological Exam performed:?Yes ?Visual exam of foot performed:?Yes ?Date?06/26/2024 ?Sensory testing performed:?sensations diminished ?Sensory and motor testing performed:?sensations diminished ?Pedal pulse taking performed:?1+ ?Footwear Evaluation?Footwear Evaluation performed:?Yes?Neurological: ?SENSORY:? Neurological exam demonstrates, reduced light touch sensation, reduced sharp/dull pin prick discrimination , B/L, 5.07 monofilament test performed at plantar aspects of 5 varied sites per foot shows sensation, reduced , B/L.?Nails: ?NAILS are:?Elongated, overgrown, dystrophic??TA, T1, T2, T3, T4, T5, T6, T8, T9.?Dermatologic: ?SKIN FINDINGS:?Skin exam reveals Keratotic lesion(s) located at ,, Plantar Heel(s), B/L.?Vascular: ?DP PULSES (B):?06/21 , B/L.?PT PULSES (B):?06/21 , B/L.?CAPILLARY FILL TIME:?delayed, all digits, B/L.?TROPHIC CONDITION-TEXTURE/ELASTICITY/TURGOR/HAIR GROWTH (B):?sparce hair growth.?TEMPERTURE GRADIENT (C):?decreased, cool to cool, proximal to distal, B/L.?PIGMENTATION:?normal, B/L.?EDEMA (C):?/ , non-pitting , B/L.?ELEV. PALOR:?absent , B/L.?CLAUDICATION (C):?denies , Left.?REST PAIN:?denies , B/L.?Orthopedic: ?FOOT MORPHOLOGY:? Pain in Achilles and intrinsic foot musculature, Decreased Ankle joint dorsiflexion ROM, knee extended, B/L.?DIGITAL DEFORMITIES:??, Digital contracture, PIPJ, 2-5 B/L, incompl- reducible to push-up test, no over, nor underlapping,?there is?evidence of shoe producing skin irritation.?FOOTWEAR:?worn, non-supportive, shoe gear properties exacerbate patient's foot/toe deformity?.? Assessment: * Assessment: 1.?Type 2 diabetes mellitus with diabetic polyneuropathy - E11.42???2.?Tinea unguium - B35.1???3.?Muscle cramp, nocturnal - R25.2???Specify :Acute problem, Stable???4.?Other hammer toe(s) (acquired), left foot - M20.42???Specify :Chronic problem, Worse (4),Rx Management (4)???5.?Other hammer toe(s) (acquired), right foot - M20.41 (Primary)???Specify :Chronic problem, Worse (4),Rx Management (4)??? Plan: * Treatment: 2.?Type 2 diabetes mellitus with diabetic polyneuropathy?Procedure: 55322-MSJZ SKIN LESIONS, 2 TO 4 ?Procedure: H4079-SXHHFNGO DYSTROPHIC NAILS ANY # * Procedures:?Keratoma Treatment:?Parring or Cutting of Benign [...] instrumentation by the physician of record - 27764.?Nail Reduction:?Nail Reduction?(-27) Trimming of all dystrophic nails [...] or bed tissue - G0127.? * Procedure Codes:?76994 TRIM SKIN LESIONS, 2 TO 4, Modifiers: XS G0127 TRIMMING DYSTROPHIC NAILS ANY #, Modifiers: XS * Preventive Medicine:? ??Counseling:?Discussion:?-14: Office or other outpatient visit for the [...] have encouraged the patient to call the office.?Cramps:?Recomm. continue with present tx plan and start application of ,Momo's Leg/Foot Cramp prior to bedtime.?Digital Surgery:?Digital surgery was discussed with the patient, including the risks of surgery(below), vs not having surgery (persistent pain, deformity, risk for skin ulceration/infection, loss of toe), the potential surg complications, the anesthesia, and the usual post-op course. No guarentees were given. We discussed the potential procedure complications including, but not limited to: pain, swelling, bleeding, scarring, numbness, infection, delayed/non healing, floppy/unstable/shorthened toe, recurrence, failure of the procedure, overcorrection leading to plantarflexed/downward positioned toe, recurrence, need for further surgery, as well as the possibility for loss of the toe itself. We discussed the use of local anesthesia, and the usual post-op course for healing. No guarentees were given. The patient verbally indicated a full understanding of the above conversation, and any other of their questions were answered to their satisfaction. Alternatives to the procedure were also discussed, including conservative care. I also discussed the usual post-operative course and gave no guarantees regarding outcome.?Digital Treatment:?HT- I explained to the patient the possible etiologies of Hammertoes, including genetics/foot type/shoegear/activity level/exercise routine and the risks/benefits of all the different treatment options for their pain including: No treatment at all, Rest, Ice, New/supportive/wider/deeper Shoe gear, Digital Padding/Strapping/Taping/Bracing/Gel protective sleeves, Foot/Ankle AFO Bracing, [...] were discussed and the patients questions re: shoe gear, padding, custom vs prefabricated inserts, activity level, and consistency in home treatment regimens for optimal success were answered to their verbally confirmed satisfaction.?Shoe Gear Counseling:?SHOE Rx - The patient was counseled in great detail on their muscoloskeletal foot and toe deformities which coincided with the dermatological presentations visualized on exam. We discussed how their deformities put the integrity of their feet at risk for potential pedal complications which makes the accomidative diabetic shoes and cutomizable inserts medically necessary. We discussed the different shoe and insert treatment types and options, as well as the important advantages for adhering to regularly wearing these accomidative devices daily. The patient was made aware of the fact that a failure to abide by these recommedations may be deleterious to their foot health as they are able to prevent many pedal complications such as skin irritation, skin ulceration, infection, and even loss of toe/foot/leg/or life. Time was also spent with the patient dispensing and discussing proper diabetic footcare techniques including daily skin moisturization, daily foot inspection for any interruption in skin integrity including open lesions, or sign of infection such as redness/malodor/drainage/swelling. Also discussed and recommended were procedures regarding daily shoe inspection for the presence of internal foreign bodies as well as any visualized irregular shoe or insert wear. Patient questions re: shoes, inserts, and self foot inspections were answered to their satisfaction as the patient verbally confirmed a full understanding of the above information. A Rx for Extra Depth Orthopedic Shoes with 3 pair of custom heat-molded inserts was dispensed.? ??Screening/Special Tests:?Fall Risk?Screening:?No falls in the past year ?FALLS: Screening for Future Fall Risk?Have you had any falls with injury in the past year??No * Follow Up:?3 Months * Images: * Sign off status: Completed true * Provider:?Deidra Almodovar DPM Date:?2024 Generated for Ryderi genesis/Natalya/Shaun on:?10/28/2024 08:07 AM EDT History and Physical Notes * HPI (History of Present Illness) Category Sub-Category Detail Notes Category Not es Toe pain Location: B/L feet Duration: several years Course: worse Aggravated by: shoes, any pressure Treatments: change [facility]- [facility] At Risk footcare Pt States Last PCP Visit: Date: 4 Foot Pain Nature: tightness, cramping, pulling , aching Location: , LEFT foot/leg Duration: several weeks Onset: sudden Course: , improved, at 50 % Aggravated: Especially toward th e end of the day/at rest/at night, stretching exercises Examination Category Sub-Category Detail Notes Category Not es Neurological SENSORY: Neurological exa m demonstrates, reduced light touch sensation, reduced sharp/dull pin prick discrimination , B/L, 5.07 monofilament test performed at plantar aspects of 5 varied sites per foot shows sensation, reduced , B/L Dermatologic SKIN FINDINGS: Skin exam reveal s Keratotic lesion(s) located at ,, Plantar Heel(s), B/L Orthopedic FOOT MORPHOLOGY: Pain in Tamra s and intrinsic foot musculature, Decreased Ankle joint dorsiflexion ROM, knee extended, B/L FOOTWEAR EVALUATION: worn, non-supportiv e, shoe gear properties exacerbate patient's foot/toe deformity DIGITAL DEFORMITIES: , Digital contractu re, PIPJ, 2-5 B/L, incompl-reducible to push-up test, no over, nor underlapping, there is evidence of shoe producing skin irritation General Examination GENERAL APPEARANCE: Denies f ever, chills, malaise, lymphadenopathy FOOT EXAM: Lower Extremity Neurological Exa m performed:: Yes Visual exam of foot performed:: Yes Date: 06/26/2024 Sensory testing performed:: sensations d iminished Sensory and motor testing performed:: se nsations diminished Pedal pulse taking performed:: 1+ Footwear Evaluation Footwear Evaluation performe d:: Yes Ophthalmology Referral DIABETES EYE EXAM Procedure Perform ed:: Yes ?Date of Exam Performed: 08/17/2023 Findings of Diabetic Eye Exam:: no retin opathy Vascular DP PULSES (B): 1/4 , B/L PT PULSES (B): 1/4 , B/L CAPILLARY FILL TIME: delayed, all digits , B/L TEMPERTURE GRADIENT (C): decreased, cool to cool, proximal to distal, B/L TROPHIC CONDITION-TEXTURE/ELASTICITY/TURGOR/HAIR GROWTH (B): sparce hair growth EDEMA (C): 1/4 , non-pitting , B/L ELEV. PALOR: absent , B/L CLAUDICATION (C): denies , Left REST PAIN: denies , B/L PIGMENTATION: normal, B/L Nails NAILS are: Elongated, overg rown, dystrophic TA, T1, T2, T3, T4, T5, T6, T8, T9 CQM Exceptions: Hemoglobin A1c not performed Reason:: No r helen specified
[2024-10-28 08:13] VITALS: BP 152/80; PULSE 53; RESP 16; O2SAT 99; BMI 31.7
== END 2024-10-28 08:42 | disposition home or self-care (01) ==
PROVIDERS: PCP Internal Medicine; Visit Provider Student in an Organized Health Care Education/Training Program
DX: M05.79 Rheumatoid arthritis with rheumatoid factor of multiple sites without organ or systems involvement (principal); M15.9 Polyosteoarthritis, unspecified; Z51.81 Encounter for therapeutic drug level monitoring; Z79.620 Long term (current) use of immunosuppressive biologic
CPT/HCPCS: 99214

== ENCOUNTER → 2024-10-28 08:04 | Outpatient (BNVA) | payer OTHER, SELFPAY | PROVIDERS: PCP Internal Medicine; Visit Provider Student in an Organized Health Care Education/Training Program | DX: M05.79 Rheumatoid arthritis with rheumatoid factor of multiple sites without organ or systems involvement (principal); M15.9 Polyosteoarthritis, unspecified; Z51.81 Encounter for therapeutic drug level monitoring; Z79.620 Long term (current) use of immunosuppressive biologic | CPT/HCPCS: 99212 ==

== ENCOUNTER 2024-10-28 08:44 | Outpatient (REF) | payer OTHER, SELFPAY ==
--- OUTSIDE RECORDS SUMMARY | 2024-10-28 09:05 | XMS_ITS | Encounter Summary ---
Author Organization [facility] Address [address] [place] [address] Care Team Providers Care Hand Sewer Name Role Phone Clara Nelson MD Primary Care Provider [phone] Reason for Referral * Consultation (Routine) - Closed Specialty Diagnoses / Procedures Referred By Contmelinda t Referred To Contact Rheumatology Diagnoses Seropositive rheumatoid arthritis of multiple sites ([facility] V24, [facility] V28) Clara Nelson MD [address] [place] [address] Phone: tel: fax: Lin Perez MD [address] [place] [address] Phone: tel: fax: Referral ID Status Reason Start Date Expiration Date V isits Requested Visits Authorized [id number] Closed Specialty Services Required 09/30/2024 09/30/2025 8 8 Reason for Visit * Reason Onset Date Comments Referral 09/30/2024 Rheumatology Encounter Details Date Type Department Care Team (Late st Contact Info) Description 09/30/2024 Telephone Adult Medicine [address] [phone] Clara Nelson MD [address] [place] [address] Referral (Rheumatology) Social History Tobacco Use Types [...] Kassandra Gray - 09/30/2024 3:01 PM EDT [facility] Rheumatology requesting an insurance authorization. Dr. Luis Alfredo WORTHY [id number] DX M05.79 8 visits Appointment 09/30/24 Please pend an order for the provider to review and sign so we can process the insurance authorization documented in this encounter Plan of Treatment Upcoming Encounters Date Type Department Care Team (Late st Contact Info) Description 03/10/2025 8:30 AM EDT Office Visit Adult Medicine [facility] [address] [place] [phone] Clara Nelson MD [address] [place], [place] 03/23/2025 9:00 AM EDT Office Visit [facility] Hematology Oncology [address] [place] [phone] Marco Hunter MD [address] [place] [phone] 03/23/2025 11:10 AM EDT Office Visit [facility] Cardiology [facility] [address] [place] [address] [place] [address] Aurelia Hart NP [address] [place] [address] [place] [address] Scheduled Referrals Name Type Priority Associated Diagnoses Order Schedule Ambulatory referral to Rheumatology Outpatient Referral Routine Seropositive rheumatoid arthritis of multiple sites ([facility] V24, [facility] V28) 1 Occurrences starting 09/30/2024 until 09/30/2025 documented as of this encounter Visit Diagnoses Diagnosis Seropositive rheumatoid arthritis of multiple sites ([facility] V24, [facility] V28)- Primary documented in this encounter Care Teams Hand Sewer Relationship Specialty Start Date End Date Clara Nelson MD [address] [place] [id number] PCP - General Internal Medicine 04/25/21 documented as of this encounter
--- OUTSIDE RECORDS SUMMARY | 2024-10-28 09:05 | XMS_ITS | Clinical Summary ---
Author Organization [facility] Address [address] [place] [address] Phone Care Team Providers Care Mergers And Acquisitions Manager Name Role Phone Clara Nelson MD Primary Care Provider [phone] Allergies Active Allergy Reactions Criticality Noted Date [...] 03/13/2018 Overweight (BMI 25.0-29.9) 12/25/2017 Atrial fibrillation ([facility] V24, [facility] V28) Carpal tunnel syndrome COPD (chronic obstructive pu lmonary disease) ([facility] V24, [facility] V28) Overview (08/27/2024): On cxr 12/03/2017 Hypertension [...] Dr Edge SLE (systemic lupus erythema tosus) (CMS/[facility] V24, CMS/HCC V28) Lumbar stenosis Overview (08/27/2024): [...] PM EDT Hospital Encounter Radiology Department - [address] [phone] Encounter for screening mammogram for breast cancer Discharge Disposition: Home or Self Care 09/30/2024 Telephone Adult Medicine [address] [phone] Clara Nelson MD Referral (Rheumatology) 09/24/2024 Telephone Adult Medicine [address] [phone] Clara Nelson MD Referral 09/17/2024 1:10 PM EDT Office Visit [facility] [address] [phone] Aurelia Hart NP Coronary artery disease, unspecified vessel or lesion type, unspecified whether angina present, unspecified whether [place] or transplanted heart (Primary Dx) 09/17/2024 9:15 AM EDT Office Visit [facility] Hematology Oncology [address] [place] [phone] Marco Hunter MD Macrocytosis (Primary Dx) 09/05/2024 8:15 AM EDT Office Visit Adult Medicine [address] [phone] Clara Nelson MD Primary hypertension (Primary Dx); Longstanding persistent atrial fibrillation (CMS/HCC V24, CMS/HCC V28); Pure hypercholesterolemia; Acquired hypothyroidism 08/28/2024 9:45 AM EDT Office Visit Thoracic Surgery - [place] [address] [place] [address] Marisa Ngo PA History of lung cancer (Primary Dx); Lung nodule 08/20/2024 8:48 AM EST - 08/20/2024 11:59 PM EST Hospital Encounter [facility] CT Scan [address] [place] [address] History of lung cancer Discharge [...] (Fluzone; Afluria) 6mo and older 05/02/2016,03/27/2014,06/03/2013,04/24,06/07/2011,04/07/2010,03/17/2009 ,03/03/2008,03/18/2007,05/09/2006,1106/2004 Brainjuicer SARS-CoV-2 COVID-19, mRNA, LNP-S, preservative free 07/10/2021,09/16/2020,08/26/2020 [...] 12/29/2004 COPD (chronic obstructive pu lmonary disease) ([facility] V24, [facility] V28) 12/05/2017 On cxr 12/03/2017 Lumbar stenosis [...] elvi ent. stated had hysterectomy Atrial fibrillation ([facility] V24, [facility] V28) 09/04/2023 Rheumatoid arthritis ([facility]/ C V24, [facility] V28) Lupus History of lung cancer 08/27/2024 [...] EDT Office Visit Adult Medicine [facility] [address] [place] [phone] Clara Nelson MD [address] [place] [address] 03/23/2025 9:00 AM EDT Office Visit [facility] Hematology Oncology [address] [place] [phone] Marco Hunter MD [address] [place] [address] 03/23/2025 11:10 AM EDT Office Visit [facility] - [facility] [address] [place] [address] [place] [phone] Aurelia Hart NP [address] [place] [address] [place] [address] Health Maintenance Due Date Last Done Comments [...] type, unspecified whether angina present, unspecified whether [place] or transplanted heart MG MAMMO DIGITAL SCREENING W LION BILAT Routine 10/14/2024 8:05 AM EDT Encounter for screening mammogram for breast cancer ECG 12-LEAD Routine 09/17/2024 1:46 PM EDT Coronary artery disease, unspecified vessel or lesion type, unspecified whether angina present, unspecified whether [place] or transplanted heart CBC WITH AUTO DIFFERENTIAL [...] LAB CHEMISTRY METHOD 10/23/2024 1:56 PM EDT [facility] Triglycerides 180(H) 0 - 150 mg/dL LAB CHEMISTRY METHOD 10/23/2024 1:56 PM EDT [facility] HDL 57 >=40 mg/dL LAB CHEMISTRY METHOD 10/23/2024 1:56 PM EDT [facility] LDL Calculated 97 0 - 100 mg/dL LAB CHEMISTRY METHOD 10/23/2024 1:56 PM EDT [facility] VLDL Cholesterol Moy 36 mg/dL LAB CHEMISTRY METHOD 10/23/2024 1:56 PM EDT [facility] Non HDL Chol. (LDL+VLDL) 133 <145 mg/dL LAB CHEMISTRY METHOD 10/23/2024 1:56 PM EDT [facility] Chol/HDL Ratio 3.3 0.0 - 4.4 LAB CHEMISTRY METHOD 10/23/2024 1:56 PM EDT [facility] Blood Venous blood specimen / Unknown Venipuncture / Unknown 10/23/2024 9:58 AM EDT 10/23/2024 9:59 AM EDT us Aurelia Hart NP LAB BLOOD ORDERABLES Final Res ult [facility] [address] [place] [address], * Thyroid stimulating hormone (10/23/2024 9:58 AM EDT) Only the most recent of2 resultswithin the time period is included. TSH 1.82 0.40 - 4.00 mcIU/mL LAB CHEMISTRY METHOD 10/23/2024 3:58 PM EDT [facility] Blood Venous blood specimen / Unknown Venipuncture / Unknown 10/23/2024 9:58 AM EDT 10/23/2024 9:59 AM EDT us Clara Nelson MD LAB BLOOD ORDERABLES Final Resul t [facility] ([facility] [address] [place] [address], [place] [phone] * MG Mammo Digital Screening w Lion bilat (10/14/2024 8:05 AM EDT) Anatomical Region Laterality Modality Breast Bilateral Mammography 10/14/2024 6:31 PM EDT Impressions 10/14/2024 6:39 PM EDT 1. No mammographic evidence of malignancy 2. Scattered fibroglandular tissue BI-RADS CATEGORY: 2 - BENIGN RECOMMENDATION: Screening bilateral mammogram is recommended in 1 year. Mammo Location: [facility], [address] [place] [address], [address], . -------- FINAL REPORT -------- Dictated By: Vic Fairbanks Dictated Date: 10/14/2024 18:31 ET Assigned Physician: Vic Fairbanks Reviewed and Electronically Signed By: Vic Fairbanks Signed Date: 10/14/2024 18:39 ET Workstation ID: [id number] Transcribed By: Self Edit Transcribed Date: 10/14/2024 [...] is recommended in 1 year. Mammo Location: [facility], [address] [place] [address], [address], . -------- FINAL REPORT -------- Dictated By: Vic Fairbanks Dictated Date: 10/14/2024 18:31 ET Assigned Physician: Vic Fairbanks Reviewed and Electronically Signed By: Vic Fairbanks Signed Date: 10/14/2024 18:39 ET Workstation ID: [id number] Transcribed By: Self Edit Transcribed Date: 10/14/2024 18:31 ET Clara Nelson MD IMG BI PROCEDURES Final Result * ECG 12 lead (09/17/2024 1:46 PM EDT) Ventricular Rate ECG 77 BPM GEMUSE Atrial Rate 77 BPM GEMUSE P-R Interval 152 ms GEMUSE QRS Duration 86 ms GEMUSE Q-T Interval 368 ms GEMUSE QTc 416 ms GEMUSE P Wave [place] 14 degrees GEMUSE R [place] 83 degrees GEMUSE T [place] 31 degrees GEMUSE ECG Interpretation Normal sinus rhythm Normal ECG When compared with ECG of 22-AUG-2023 22:01, Sinus rhythm has replaced Atrial flutter Confirmed by JEREMIAH MEREDITH ([id number]) on 09/18/2024 1:53:25 PM GEMUSE 09/17/2024 1:26 PM EDT 09/18/2024 1:53 PM EDT us Aurelia Hart INTRAOPERATIVE NEURO TECH ECG ORDERABLES Edited Result - Final GEMUSE * (ABNORMAL) CBC auto differential (09/05/2024 9:13 AM EDT) WBC 8.9 4.8 - 10.8 K/mcL LAB H[facility]ETOLOGY [facility] RBC 4.10 3.80 - 4.80 M/mcL LAB HEMETOLOGY METHOD 09/05/2024 10:13 AM [facility] Hemoglobin 13.4 11.5 - 16.0 g/dL LAB HEMETOLOGY METHOD 09/05/2024 10:13 AM [facility] Hematocrit 43.6 35.0 - 47.0 % LAB HEMETOLOGY METHOD 09/05/2024 10:13 AM [facility] MCV 107.1(H) 79.0 - 98.0 FL LAB HEMETOLOGY METHOD 09/05/2024 10:13 AM [facility] MCH 32.9(H) 27.0 - 32.0 pcg LAB HEMETOLOGY METHOD 09/05/2024 10:13 AM [facility] MCHC 30.7(L) 32.0 - 37.0 g/dL LAB HEMETOLOGY METHOD 09/05/2024 10:13 AM [facility] RDW 12.8 11.0 - 15.0 % LAB HEMETOLOGY METHOD 09/05/2024 10:13 AM [facility] Platelets 164 130 - 400 K/mcL LAB HEMETOLOGY METHOD 09/05/2024 10:13 AM [facility] MPV 11.7(H) 7.0 - 11.0 FL LAB HEMETOLOGY METHOD 09/05/2024 10:13 AM [facility] NRBC 0.0 <1.0 % LAB HEMETOLOGY METHOD 09/05/2024 10:13 AM [facility] NRBC Absolute 0.00 <0.10 K/[facility] LAB HEMETOLOGY METHOD 09/05/2024 10:13 AM [facility] Neutrophils Relative 63.2 % LAB HEMETOLOGY METHOD 09/05/2024 10:13 AM [facility] Lymphocytes Relative 24.1 % LAB HEMETOLOGY METHOD 09/05/2024 10:13 AM [facility] Monocytes Relative 8.9 % LAB HEMETOLOGY METHOD 09/05/2024 10:13 AM [facility] Eosinophils Relative 2.9 % LAB HEMETOLOGY METHOD 09/05/2024 10:13 AM [facility] Basophils Relative 0.7 % LAB HEMETOLOGY METHOD 09/05/2024 10:13 AM [facility] Immature Granulocytes Relative 0.2 % LAB HEMETOLOGY METHOD 09/05/2024 10:13 AM [facility] Neutrophils Absolute 5.59 1.50 - 7.00 K/[facility] LAB HEMETOLOGY METHOD 09/05/2024 10:13 AM [facility] Lymphocytes Absolute 2.13 1.00 - 5.00 K/[facility] LAB HEMETOLOGY METHOD 09/05/2024 10:13 AM [facility] Monocytes Absolute 0.79 0.20 - 1.00 K/mcL LAB HEMETOLOGY METHOD 09/05/2024 10:13 AM [facility] Eosinophils Absolute 0.26 0.00 - 0.50 K/mcL LAB HEMETOLOGY METHOD 09/05/2024 10:13 AM EDT [facility] Basophils Absolute 0.06 0.00 - 0.20 K/[facility] HEMETOLOGY METHOD 09/05/2024 10:13 AM EDT [facility] Immature Granulocytes Absolute 0.02 0.00 - 0.03 K/[facility] HEMETOLOGY METHOD 09/05/2024 10:13 AM EDT [facility] Blood Venous blood specimen / Unknown Venipuncture / Unknown 09/05/2024 9:13 AM EDT 09/05/2024 9:13 AM EDT us Marco Hunter MD LAB BLOOD ORDERABLES Final Result [facility] [address] [place] [address], * (ABNORMAL) Basic metabolic panel (09/05/2024 9:13 AM EDT) Sodium 141 133 - 145 mmol/L LAB CHEMISTRY METHOD 09/05/2024 2:53 PM [facility] Potassium 4.9 3.5 - 5.5 mmol/L LAB CHEMISTRY METHOD 09/05/2024 2:53 PM [facility] Chloride 109 96 - 110 mmol/L LAB CHEMISTRY METHOD 09/05/2024 2:53 PM [facility] CO2 26 21 - 32 mmol/L LAB CHEMISTRY METHOD 09/05/2024 2:53 PM [facility] Anion Gap 6 3 - 11 LAB CHEMISTRY METHOD 09/05/2024 2:53 PM [facility] Glucose 127(H) 70 - 100 mg/dL LAB CHEMISTRY METHOD 09/05/2024 2:53 PM [facility] BUN 34(H) 5 - 25 mg/dL LAB CHEMISTRY METHOD 09/05/2024 2:53 PM EDT [facility] Creatinine 1.18(H) 0.50 - 1.10 mg/dL LAB CHEMISTRY METHOD 09/05/2024 2:53 PM EDT [facility] eGFR 48(L) >=60 mL/min/1. 73m2 LAB CHEMISTRY METHOD 09/05/2024 2:53 PM EDT [facility] Comment:Calculation based on the??Chronic Kidney Disease Epidemiology Collaboration (CKD-EPI) equation refit??without adjustment for race. BUN/Creatinine Ratio 28.8 LAB CHEMISTRY METHOD 09/05/2024 2:53 PM EDT [facility] Calcium 9.5 8.5 - 10.5 mg/dL LAB CHEMISTRY METHOD 09/05/2024 2:53 PM EDT [facility] Blood Venous blood specimen / Unknown Venipuncture / Unknown 09/05/2024 9:13 AM EDT 09/05/2024 9:13 AM EDT us Clara Nelson MD LAB BLOOD ORDERABLES Final Resul t [facility] [address] [place] [address], [place] [phone] * CT Chest wo Contrast (08/20/2024 8:56 [...] Signed Date: 08/22/2024 07:11 ET Workstation ID: [id number] Transcribed By: Self Edit Transcribed Date: 08/22/2024 [...] Signed Date: 08/22/2024 07:11 ET Workstation ID: [id number] Transcribed By: Self Edit Transcribed Date: 08/22/2024 06:54 ET us Liane Quiros INTRAOPERATIVE NEURO TECH IMG CT PROCEDURES Final Res ult * CT LUNG SCREENING LOW DOSE (03/14/2023 1:48 PM EDT) Anatomical Region Laterality Modality Computed Tomogra phy 03/14/2023 8:59 AM EDT Narrative 03/14/2023 1:[address] [facility] Diagnostic Imaging Department [address] [place] [address] [id number] Patient: ??GENA,HERNANDO ?/Age/Sex: 1950 - 72 - F Unit#: ??[id number] ? Location/Status: ??SPDICATLS/REG CLI ? Mnemonic/Ordering Site: ??[facility]/SPCT Ordering Physician: ??JADE PEREZ MD CT Lung Screening Low Dose - 03/14/23 - 908 Report Status:Signed History: ??72 year-old 58 pack-year current smoker, asymptomatic, for lung cancer screening Comparison: 03/13/2022 Technique: Helical volumetric imaging of the thorax was performed, using low- dose technique, without IV contrast. DLP: 166.46 mGy/cm ??CTDIvol: 4.83 mGy Briteseed VCT Iterative reconstruction technique Findings: Chest: There [...] suggestive of an inflammatory or infectious process. [id number] [id number] [id number] [id number] Dictating Physician: ??RUKHSANA SARAVIA MD Electronically Signed by: ??RUKHSANA SARAVIA MD Dic Date/Time: ??03/14/23 1335 Sign date/Time: ??03/14/23 1348 Procedure Note Rukhsana Saravia MD - 07/24/2023 [facility] Diagnostic Imaging Department [address] [place] [address] [id number] Patient: HERNANDO RUELAS /Age/Sex: 1950 - 72 - F Unit#: [id number] Location/Status: SPDICATLS/REG CLI Mnemonic[facility] Ordering Physician: JADE PEREZ MD CT Lung Screening Low Dose - 03/14/23908 Report Status:Signed History: 72 year-old 58 pack-year current smoker, asymptomatic, for lungcancer screening Comparison: 03/13/2022 Technique: Helical volumetric imaging of the thorax was performed, usinglow- dose technique, without IV contrast. DLP: 166.46 mGy/cm CTDIvol: 4.83 mGy Briteseed VCT Iterative reconstruction technique Findings: Chest: There [...] Findings suggestive of an inflammatory orinfectious process. [id number] [id number] [id number] [id number] Dictating Physician: RUKHSANA SARAVIA MD Electronically Signed by: RUKHSANA SARAVIA MD Dic Date/Time: 03/14/23 1335 Sign date/Time: 03/14/23 1348 Jade Perez MD IMG CT PROCEDURES Final Result from Last 3 Months or Most Recently Relevant to Health Maintenance Insurance MEDICARE 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
--- OUTSIDE RECORDS SUMMARY | 2024-10-28 09:05 | XMS_ITS | Clinical Summary ---
Author Organization [facility] Address [address] [place] [address] Care Team Providers Care Bingo Checker Name Role Phone Clara Nelson MD Primary Care Provider [phone] Allergies Active Allergy Reactions Criticality Noted Date [...] age to complete this topic Care Teams Bingo Checker Relationship Specialty Start Date End Date Clara Nelson MD PCP - General Internal Medicine 07/06/21
[2024-10-28 09:48] LABS: MANUAL DIFF FLAG NO
[2024-10-28 10:27] LABS: Basophils Absolute Auto 0.1 X10*3/uL (0.0-0.2); Basophils Percent Auto 1.2 % (0-2); Eosinophils Absolute Auto 0.2 X10*3/uL (0.0-0.4); Eosinophils Percent Auto 2.9 % (0-4); Hematocrit 42.5 % (37.0-47.0); Hemoglobin 13.5 g/dl (12.0-16.0); Imm Gran Abs Auto 0.03 X10*3/uL (0.00-0.03); Imm Gran Pct Auto 0.4 % (0.0-0.4); Lymphocytes Percent Auto 29.4 % (20-40); Mean Corpuscular HGB Conc 31.8 g/dl (31.0-35.0); Mean Corpuscular Hemoglobin 32.9 pg (27.0-33.0); Mean Corpuscular Volume 103.7 fL (80.0-98.0); Mean Platelet Volume 11.2 fL (9.4-12.3); Monocytes Absolute Auto 0.7 X10*3/uL (0.1-1.2); Monocytes Percent Auto 9.4 % (2-11); Neutrophils Absolute Auto 3.9 x10*3/uL (2.0-8.3); Neutrophils Percent Auto 56.7 % (45-73); Platelet Count 194 X10*3/uL (160-400); Red Cell Distribution Width 12.7 % (11.0-16.0); White Blood Count 6.9 X10*3/uL (4.8-10.8)
[2024-10-28 11:03] LABS: Erythrocyte Sedimentation Rate 33 MM/HR (0-20)
[2024-10-28 11:09] LABS: Alanine Aminotransferase 26 U/L (0-31); Anion Gap 16 (12-20); Aspartate Amino Transferase 28 U/L (5-31); Bilirubin Total 0.5 mg/dL (0.0-1.0); Blood Urea Nitrogen 54 mg/dL (9-16); C Reactive Protein 0.78 mg/dL (< or = 0.50); Calcium 9.4 mg/dL (8.4-10.2); Carbon Dioxide 23 mmol/L (22-29); Chloride 107 mmol/L (96-108); Estimated Glomerular Filt Rate 34; Glucose Random 110 mg/dL (60-115); Potassium 4.8 mmol/L (3.3-5.1); Sodium 141 mmol/L (135-145); Total Protein 7.1 g/dL (6.5-8.0)
[2024-10-28 12:51] LABS: Alkaline Phosphatase 71 U/L (39-117)
== END 2024-10-28 08:45 | disposition home or self-care (01) ==
LOC: HO.10HDL 08:44
PROVIDERS: Visit Provider Student in an Organized Health Care Education/Training Program
DX: M05.79 Rheumatoid arthritis with rheumatoid factor of multiple sites without organ or systems involvement (principal)
CPT/HCPCS: 36415; 80053; 85025; 85652; 86140

== ENCOUNTER 2024-12-10 16:06 | Outpatient (AMB) | payer OTHER, SELFPAY ==
--- NOTE | 2024-12-10 16:12 | A.OFFVIS_ITS ---
Vital Signs 12/10/24 16:13 Weight 197 lb BP 121/60 Blood Pressure Location Lt brachial Position Sitting Respiration 18 Pulse 82 Pulse Source Pulse Oximeter Pulse Oximetry (%) 94 Oxygen Delivery Method Room Air Intake Visit Reasons: Postlaminectomy syndrome/radha 2020 Endband Cutter Hand Required: No Allergies fish oil Allergy (Verified 12/10/24 16:16) unknown penicillin G Allergy (Verified 12/10/24 16:16) unknown aspirin Adverse Reaction (Intermediate, Verified 12/10/24 16:16) Nausea and Vomiting methocarbamol Adverse Reaction (Intermediate, Verified 12/10/24 16:16) Nausea and Vomiting sulfasalazine Adverse Reaction (Intermediate, Verified 12/10/24 16:16) Nausea and Vomiting HPI Comments Details: Tiffany is very pleasant 73 years old female who presents in my office with complains on pain in the lower back as well as pain in the left hip and left posterior knee. She reports that she is suffering from this pain for 16 years. She reports her pain in the back is most severe when she is standing and walking as well as sitting for prolonged period of time. She reports her pain in terms of tissue damage as pounding and lancinating. Because of her pain she can not sleep normally. She can do activities of daily living. She is able to take care of herself. She can not function normally. She is retired individual. She tried gabapentin NSAIDs and Tylenol for her pain. None of those medications helping her. Last physical therapy she had was 11 years ago. Last images of her lumbar spine were done 6 years ago. In our system we have image of her lumbar spine demonstrating advanced arthritis of bilateral hip joints, no changes to SI joints, the full reports see as below. Under my care in this office 5 years ago we discussed and performed a trial of a pain pump for this patient. Patient has no recall about this trial. Her past medical history significant for diabetes arthritis status post lobectomy and history of heart palpitations. She is currently on blood thinners including Eliquis. Past surgical history lobectomy secondary to the lung cancer. That was 10 years ago. She also had long time ago L4-5 stabilization with fusion with pedicular screws and rods. She denies smoking cigarettes she drinks alcohol she admits caffeinated beverages she denies recreational drugs [facility] Medical History Rheumatoid factor positive Lung cancer Chronic pain syndrome Sacroiliitis Sacroiliac joint dysfunction of both sides Postlaminectomy syndrome of lumbar region Surgical History S/P lobectomy of lung Hx of tonsillectomy History of total hysterectomy with bilateral salpingo-oophorectomy (BSO) H/O bilateral cataract extraction Status post right breast lumpectomy History of lumbar fusion History of back surgery Hx of appendectomy Family History Sister Breast cancer Arthritis Paternal Grandmother Breast cancer Mother Arthritis Diabetes Social History Household Members: Family Housing: [facility] Are you a primary client care specialist to a significant other at home: No Do you presently have visiting nurse or other home services: No Alcohol intake: current Alcohol intake frequency: holidays/special occasions only Alcohol type: wine Patient Tobacco Use Status: Former Tobacco user Cigarettes Per Day: 5 Years Smoked: 58 years e-Cigarette/Vaping Use: Never Used service: No Current occupational status: retired 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 Review of Systems Const All systems reviewed & are unremarkable except as noted in HPI and below ENT Reports Normal hearing present Neuro Reports Normal hearing present, Denies Abnormal speech present, Denies confusion and Denies Sensory deficit (Neuro) Psych Denies confusion Physical Exam Vital Signs: Last Vital Signs Pulse 82 12/10/24 16:13 Resp 18 12/10/24 16:13 BP 121/60 12/10/24 16:13 Pulse Ox 94 12/10/24 16:13 Oxygen Delivery Method Room Air 12/10/24 16:13 Const General: no acute distress; No confusion Orientation/consciousness: patient oriented x3 and No confusion Eyes General: appearance normal, both eyes and all related structures Pupils: Equal, round and reactive pupils present EOM: EOMs intact bilaterally Neck Neck: Yes full ROM Chest Chest palpation & inspection: normal inspection of the chest Resp Effort & Inspection: normal respiratory effort, able to speak in complete [place], normal respiratory pattern, no audible wheezes and no cough Cardio Jugular venous distension: no JVD GI Inspection: Yes normal to inspection Back/Spine/Pelvis Other: Flexing forward and flexing backwards equally aggravate her pain. SLR is negative bilaterally. River test is positive bilaterally. Pelvic compression test is positive bilaterally. Pelvic distraction test is positive bilaterally. There is tenderness on palpation bilaterally in paraspinal spinal region lumbar spine. Loading test is equivocal. Neuro General: patient oriented x3, gait normal and No confusion Cranial nerves: Yes CN's II-XII intact bilaterally, Yes Equal, round and reactive pupils present, Yes Normal hearing present and Yes Ability to bilaterally elevate shoulders present Speech: No Abnormal speech present Gait exam (Neuro): Normal gait present Motor exam (neuro): 5/5 motor strength present throughout Sensory Exam: No Sensory deficit (Neuro) Extrem General: No pedal edema Psych Speech and movement: Normal speech and movement present Affect: normal affect Attitude: cooperative Thought process: Normal thought process present Thought content: Normal thought content present Insight: Good insight present (Psych) Judgement: Good judgement present (Psych) Results Reviewed Results Reviewed: X-ray of the hip and pelvis 2021. No acute fractures or malalignment. Mild to moderate joint space narrowing, subcortical sclerosis and osteophytes in the hips. Calcific tendinosis noted adjacent to the left greater trochanter. SI joints are symmetric. Pubic symphysis is maintained. No erosions. Atherosclerotic disease. L4-L5 posterior lumbar hardware with interdisc spacer. IMPRESSION: 1. No acute fractures or malalignment. 2. Mild to moderate degenerative osteoarthritis of the hips. 3. Calcific tendinosis of the left hip. Assessment & Plan Assessment & Plan (1) Postlaminectomy syndrome: Code(s): M96.1 - Postlaminectomy syndrome, not elsewhere classified Category: Medical (2) Osteoarthritis, hip, bilateral: Code(s): M16.0 - Bilateral primary osteoarthritis of hip Category: Medical (3) Sacroiliitis: Code(s): M46.1 - Sacroiliitis, not elsewhere classified Category: Medical (4) Sacroiliac joint dysfunction of both sides: Code(s): M53.3 - Sacrococcygeal disorders, not elsewhere classified Category: Medical Plan There is very often that postlaminectomy syndrome eventually results in developing sacroiliitis. This patient on physical exam demonstrates signs of bilateral sacroiliitis and sacroiliac joint pain. I will schedule her for diagnostic bilateral sacroiliac joint injection. I also would like to send her to physical therapy. I also would like to obtain x-ray of the lumbar spine and x-ray of the pelvis. I will see this patient after the x-rays or after the procedure of diagnostic sacroiliac joint injection. Orders: Orders XR lumbar spine 4V min 12/10/24 M96.1 - Postlaminectomy syndrome, not elsewhere classified XR pelvis 1-2V 12/10/24 M16.0 - Bilateral primary osteoarthritis of hip, M46.1 - Sacroiliitis, not elsewhere classified PT Evaluation and Treatment 12/10/24 M16.0 - Bilateral primary osteoarthritis of hip, M46.1 - Sacroiliitis, not elsewhere classified, M53.3 - Sacrococcygeal disorders, not elsewhere classified Patient Instructions: I here by testify that I spent 45 minutes in conversation with this patient as well as evaluating her prior records prior images and prior diagnostic reports as well as planning her care and organizing this note. Coding Level of Care Code New Pt Level 4 (80188) Diagnoses Postlaminectomy syndrome M96.1 Osteoarthritis, hip, bilateral M16.0 Sacroiliitis M46.1 Sacroiliac joint dysfunction of both sides M53.3
[2024-12-10 16:13] VITALS: BP 121/60; PULSE 82; RESP 18; O2SAT 94
--- OUTSIDE RECORDS SUMMARY | 2024-12-10 18:40 | XMS_ITS | Patient Health Record ---
Author Organization [facility] Ralf ramona [place] Address [address] [place] [address] Care Team Providers Care College Or University Business Manager Name Role Phone Clara Nelson Primary Care Provider UnavailDeidra Padilla Unavailable [phone] Allergies Allergen (clinical drug ingredient) Drug/Non Drug [...] Referring Provider Last Name Omar [facility] Referred Provider Deidra Almodovar Referred Address [address] [facility],[place], [place],[address], Referred Provider Specialty Podiatry Referral Priority Routine [...] Problem Acquired hammer toe of right foot (7547006255757133 ) Other hammer toe(s) (acquired), right foot (M20.41) Active confirmed Problem Acquired hammer toe of left foot (4709267912172298 ) Other hammer toe(s) (acquired), left foot (M20.42) Active confirmed Problem Polyneuropathy due to type 2 diabetes mellitus (776281114) Type 2 diabetes mellitus with diabetic polyneuropathy (E11.42) Active confirmed Vital Signs Blood pressure diastolic 88 mm Hg 09/25/2024 Height 5ft 6in in 09/25/2024 Blood pressure systolic 130 mm Hg 09/25/2024 Weight 182 lbs 09/25/2024 BMI 29.37 kg/m2 09/25/2024 Procedures Procedure Date Ordered Date Performed Result Body Sit e 04351 I&D ABSCESS- SIMPLE,SINGLE 03/10/2024 N/A 13084-WJDC SKIN LESIONS, 2 TO 4 03/10/2024 N/A C9347-AIRKITDF DYSTROPHIC NAILS ANY # 03/10/2024 N/A 71692-JLYE SKIN LESIONS, 2 TO 4 06/26/2024 N/A Q1235-MQGIRLYL DYSTROPHIC NAILS ANY # 06/26/2024 N/A 52880-Tgygmhjd Plate 09/25/2024 N/A 55648-DAOJ SKIN LESIONS, 2 TO 4 09/25/2024 N/A Z6987-CLOGXFRZ DYSTROPHIC NAILS ANY # 09/25/2024 N/A Encounters Encounter Location Date Provider Diagnosis [address] [address] 03/10/2024 Deidra Almodovar Type 2 diabetes mellitus with diabetic polyneuropathy E11.42 ; Tinea unguium B35.1 ; Muscle cramp, nocturnal R25.2 and Abscess of toe, left L02.[address] [address] 06/26/2024 Deidra Almodovar Type 2 diabetes mellitus with diabetic polyneuropathy E11.42 ; Tinea unguium B35.1 ; Muscle cramp, nocturnal R25.2 ; Other hammer toe(s) (acquired), left foot M20.42 and Other hammer toe(s) (acquired), right foot M20.[address] [address] 09/25/2024 Deidra Almodovar Type 2 diabetes mellitus with diabetic polyneuropathy E11.42 ; Edema, lower extremity R60.0 ; Tinea unguium B35.1 ; Muscle cramp, nocturnal R25.2 and Ingrown nail L60.[address] [address] 09/25/2024 Deidra Almodovar Assessments Encounter Date Diagnosis (ICD Code) Assessment Notes Treatment Notes Treatment Clinical Notes Section Notes 03/10/2024 Type 2 diabetes mellitus with diabetic polyneuropathy (ICD-10 - E11.42) 06/26/2024 Type 2 diabetes mellitus with diabetic polyneuropathy (ICD-10 - E11.42) 09/25/2024 Type 2 diabetes mellitus with diabetic polyneuropathy (ICD-10 - E11.42) 09/25/2024 Edema, lower extremity (ICD-10 - R60.0) 09/25/2024 Tinea unguium (ICD-10 - B35.1) 06/26/2024 Tinea unguium (ICD-10 - B35.1) 03/10/2024 Tinea unguium (ICD-10 - B35.1) 03/10/2024 Muscle cramp, nocturnal (ICD-10 - R25.2) 06/26/2024 Muscle cramp, nocturnal (ICD-10 - R25.2) 09/25/2024 Muscle cramp, nocturnal (ICD-10 - R25.2) 06/26/2024 Other hammer toe(s) (acquired), left foot (ICD-10 - M20.42) 09/25/2024 Ingrown nail (ICD-10 - L60.0) 03/10/2024 Abscess of toe, left (ICD-10 - L02.612) Patient Educated with: WOUND CARE INSTRUCTIONS. pdf (WOUND CARE INSTRUCTIONS. pdf) 06/26/2024 Other hammer toe(s) (acquired), right foot (ICD-10 - M20.41) Patient Educated with: DIABETIC FOOT CARE INSTRUCTIONS. pdf (DIABETIC FOOT CARE INSTRUCTIONS. pdf) 03/10/2024 Other 09/25/2024 Other Plan Of Treatment Pending Test Test Name Order Date 63503-WIZQPJC NAIL, 6 OR MORE 08/16/2023 44671-PNEJOLB NAIL, 6 OR MORE 11/15/2023 85808-Xxlprwtk Plate 09/25/2024 64855 I&D ABSCESS- SIMPLE,SINGLE 024 94928-TWCF SKIN LESIONS, 2 TO 4 06/26/19 25 47779-QBRH SKIN LESIONS, 2 TO 4 03/10/20 24 51293-WDUV SKIN LESIONS, 2 TO 4 11/15/19 24 98070-OGGS SKIN LESIONS, 2 TO 4 08/16/19 24 48383-ZSOD SKIN LESIONS, 2 TO 4 09/26/19 25 G1242-NRVWOVNS DYSTROPHIC NAILS ANY # M5205-BVNSSCXJ DYSTROPHIC NAILS ANY # J8091-TYYAFZGK DYSTROPHIC NAILS ANY # Next Appt Details Provider Name:Deidra Almodovar , 01/05/2025 08:15:00 AM, [address] [place] [address], [phone], Insurance Providers Payer Name Payer Address Payer Phone Subscriber Number Group Number Insured Name Patient Relationship to Insured Coverage Start Date Coverage End Date [facility] [address] [place] [address] [id number] Tiffany Ruelas Self - patient is the insured Medical (General) History Medical History History ICD Code Back,Hip,and Knee pain Diabetic High blood pressure Rheumatic fever thyroid Measles Mumps Chicken pox Joint implants/screws Cancer Surgical History Surgery Date(Month/Year) hysterectomy appendectomy back surgery colonoscopy wisdom teeth extraction Tooth extraction lung surgery 08/21/23
== END 2024-12-10 16:29 | disposition home or self-care (01) ==
LOC: HO.PMC 16:07
PROVIDERS: PCP Internal Medicine; Visit Provider Anesthesiology
DX: M96.1 Postlaminectomy syndrome, not elsewhere classified (principal); M16.0 Bilateral primary osteoarthritis of hip; M46.1 Sacroiliitis, not elsewhere classified; M53.3 Sacrococcygeal disorders, not elsewhere classified
CPT/HCPCS: 99204

== ENCOUNTER → 2024-12-10 16:06 | Outpatient (BNVA) | payer OTHER, SELFPAY | PROVIDERS: PCP Internal Medicine; Visit Provider Anesthesiology | DX: M96.1 Postlaminectomy syndrome, not elsewhere classified (principal); M16.0 Bilateral primary osteoarthritis of hip; M46.1 Sacroiliitis, not elsewhere classified; M53.3 Sacrococcygeal disorders, not elsewhere classified | CPT/HCPCS: 99202 ==

== ENCOUNTER 2024-12-16 09:09 | Outpatient (REF) | payer OTHER, SELFPAY ==
--- OUTSIDE RECORDS SUMMARY | 2024-03-19 09:43 | XMS_ITS | Encounter Summary ---
Author Organization [facility] Address [address] [place] [address] Care Team Providers Care Guide Rail Cleaner Name Role Phone Clara Nelson MD Primary Care Provider [phone] Encounter Details Date Type Department Care Team (Late st Contact Info) Description 03/19/2024 9:43 AM EDT Hospital Encounter TH HISTORIC ENCOUNTERS EASTERN CONVERSION ONLY Marco Hunter MD [address] [place] [phone] Social History Tobacco Use Types Packs/Day [...] 10:12 AM Encounter Date: 03/19/2024 Status: Addendum Rn International: Marco Hunter MD (Physician) Related Notes: Original [...] cm adenocarcinoma, 80% acinar type, 20% solid, [id number]-[id number], [id number]. Visceral pleural invasion was focally present. LVI was not present. 0 of 3 parenchymal nodes;0 of 1 R4 nodes, 0 of 2 sump nodes, 0 of 2 right level 9 nodes; and 0 of 1 right level 10 nodes were involved with tumor. APD-L1 TPS was 95%. A KRAS G12 C mutation was detected. EGFR, BRAF, ALK, [id number] were not detected. She reports mild postthoracotomy [...] lobe lung adenocarcinoma, PD-L1 TPS 95, KRAS [id number]. The patient underwent a right upper lobectomy [...] Care Team (Late st Contact Info) Description 03/23/2025 9:00 AM EDT Office Visit [facility] Hematology Oncology [address] [place] [phone] Marco Hunter MD [address] [place] [phone] 03/23/2025 11:10 AM EDT Office Visit [facility] [address] [place] [address] Dr [place] [place] [phone] Aurelia Hart NP [address] [place] [address] [place] [address] 04/07/2025 8:15 AM EDT Office Visit [address] [phone] Clara Nelson MD [address] [place] [address] 10/19/2025 8:00 AM EDT Appointment Radiology Department - [address] [phone] documented as of this encounter Procedures Procedure [...] on filedocumented in this encounter Care Teams Guide Rail Cleaner Relationship Specialty Start Date End Date Clara Nelson MD [address] [place] [phone] PCP - General Internal Medicine 04/25/21 documented as of this encounter
--- NOTE | ~2024-12-16 | XR_ITS ---
CLINICAL HISTORY: M46.1 - Sacroiliitis, not elsewhere classified Two views of the pelvis. COMPARISON: None provided. FINDINGS: Pelvic ring appears maintained. Atherosclerotic vascular calcifications. Visualized portions of the proximal femur appear intact. Increased sclerosis along the iliac margins of the sacroiliac joints bilaterally. No erosion or evidence of fusion. Degenerative changes of the partially visualized lower lumbar spine. Posterior spinal fixation hardware present at L4-5 without evidence of hardware complication. Type 1 coccyx. IMPRESSION: 1. No radiographic evidence of acute injury to the pelvis. 2. Increased sclerosis along the sacroiliac joints bilaterally can be seen with sacroiliitis. No erosions or evidence of sacroiliac joint fusion. 3. Degenerative changes of the partially visualized lower lumbar spine. Posterior spinal fixation hardware bridges the L4-5 levels without evidence of hardware complication. 4. Atherosclerotic vascular disease. This document has been electronically signed by: Alfred White MD on 12/17/2024 13:45:34
--- NOTE | ~2024-12-16 | XR_ITS ---
CLINICAL HISTORY: M96.1 - Postlaminectomy syndrome, not elsewhere classified Five views of the lumbar spine. COMPARISON: None provided. FINDINGS: Five gcl-zjr-aihrfmp lumbar type vertebral bodies. Straightening of the normal lumbar lordosis. Posterior spinal fixation hardware bridges the L4-5 levels. No evidence of hardware loosening or failure. Intervertebral disc spacer present at L4-5. Vertebral body heights are maintained. No evidence of acute vertebral body injury. Small marginal osteophytes present throughout the lumbar spine. Atherosclerotic vascular calcifications. Visualized bones of the pelvis appear intact. Type 1 coccyx. IMPRESSION: 1. Anatomic alignment of posteriorly fixated L4-5 levels without evidence of hardware complication. This document has been electronically signed by: Alfred White MD on 12/17/2024 13:48:45
--- OUTSIDE RECORDS SUMMARY | 2024-12-16 09:40 | XMS_ITS | Clinical Summary ---
Author Organization [facility] Address [address] [place] [address] Care Team Providers Care County Adviser Name Role Phone Clara Nelson MD Primary Care Provider Allergies Active Allergy Reactions Criticality Noted Date [...] 65 03/19/2024 9:45 AM EDT Temperature 36.3 C (97.4 F) 03/19/2024 9:45 AM EDT Respiratory Rate - - Oxygen Saturation 100% [...] age to complete this topic Care Teams County Adviser Relationship Specialty Start Date End Date Clara Nelson MD PCP - General Internal Medicine 07/06/21
--- OUTSIDE RECORDS SUMMARY | 2024-12-16 09:40 | XMS_ITS | Patient Health Record ---
Author Organization [facility] Ralf ramona [place] Address [address] [place] [address] Care Team Providers Care Waste Transportation Technician Name Role Phone Clara Nelson Primary Care Provider UnavailDeidra Padilla Unavailable [phone] Allergies Allergen (clinical drug ingredient) Drug/Non Drug [...] Referring Provider Last Name Omar Ref[facility] Referred Provider Deidra Almodovar Referred Address [address] [place], [place],[address], Referred Provider Specialty Podiatry Referral Priority Routine Medications Medication SIG (Take, Route, Frequency, Duration) Notes Start Date End Date Status Simvastatin 20 MG Oral; Duration: 90 Days Active Levothyroxine Sodium 125 MCG Oral; Duration: 90 Days Acti ve Atenolol 50 MG Oral; Duration: 90 Days Active Extra Depth Orthopedic Shoes (1 Pair) with Customized Heat Molded Multidensity Innersoles (3 Pair) as directed Dx: NIDDM/Polyneuropathy (E11.42), Hammertoe Foot Deformity (M20.41,M20.42), Preulcerative Skin Lesion(s) (L85.1 11/15/2023 Active Compression Stockings 20-30mm Hg 1 pair wear daily; Duration: 30 days Active Ammonium Lactate 12 % 1 application Exte rnally Twice a day; Duration: 30 days Active Lisinopril 10 MG Oral; Duration: 90 Days Active Buprenorphine 7.5 MCG/HR 1 [...] Problem Acquired hammer toe of right foot (4372812389435013 ) Other hammer toe(s) (acquired), right foot (M20.41) Active confirmed Problem Acquired hammer toe of left foot (0518178036862921 ) Other hammer toe(s) (acquired), left foot (M20.42) Active confirmed Problem Polyneuropathy due to type 2 diabetes mellitus (292304080) Type 2 diabetes mellitus with diabetic polyneuropathy (E11.42) Active confirmed Vital Signs Blood pressure diastolic 88 mm Hg 09/25/2024 Height 5ft 6in in 09/25/2024 Blood pressure systolic 130 mm Hg 09/25/2024 Weight 182 lbs 09/25/2024 BMI 29.37 kg/m2 09/25/2024 Procedures Procedure Date Ordered Date Performed Result Body Sit e 55095 I&D ABSCESS- SIMPLE,SINGLE 03/10/2024 N/A 35859-YIYN SKIN LESIONS, 2 TO 4 03/10/2024 N/A H9054-ALEVEGDM DYSTROPHIC NAILS ANY # 03/10/2024 N/A 95822-WRZN SKIN LESIONS, 2 TO 4 06/26/2024 N/A M8776-EJWAOUDY DYSTROPHIC NAILS ANY # 06/26/2024 N/A 54292-Gncqbiah Plate 09/25/2024 N/A 75576-RNGQ SKIN LESIONS, 2 TO 4 09/25/2024 N/A G9974-EABPHMLS DYSTROPHIC NAILS ANY # 09/25/2024 N/A Encounters Encounter Location Date Provider Diagnosis [address] [address] 03/10/2024 Deidra Almodovar Type 2 diabetes mellitus with diabetic polyneuropathy E11.42 ; Tinea unguium B35.1 ; Muscle cramp, nocturnal R25.2 and Abscess of toe, left L02.[address] [address] 06/26/2024 Deidra Almodovar Type 2 diabetes mellitus with diabetic polyneuropathy E11.42 ; Tinea unguium B35.1 ; Muscle cramp, nocturnal R25.2 ; Other hammer toe(s) (acquired), left foot M20.42 and Other hammer toe(s) (acquired), right foot M20.[address] [address] 09/25/2024 Deidra Almodovar Type 2 diabetes mellitus with diabetic polyneuropathy E11.42 ; Edema, lower extremity R60.0 ; Tinea unguium B35.1 ; Muscle cramp, nocturnal R25.2 and Ingrown nail L60.[address] [address] 09/25/2024 Deidra Almodovar Assessments Encounter Date Diagnosis [...] Treatment Pending Test Test Name Order Date 63739-NJYCSGZ NAIL, 6 OR MORE 08/16/2023 63653-XWDJKWW NAIL, 6 OR MORE 11/15/2023 31629-Nesrbute Plate 09/25/2024 27545 I&D ABSCESS- SIMPLE,SINGLE 024 72216-YSVZ SKIN LESIONS, 2 TO 4 06/26/19 25 15951-BAON SKIN LESIONS, 2 TO 4 03/10/20 24 68830-DADX SKIN LESIONS, 2 TO 4 11/15/19 24 81901-LUST SKIN LESIONS, 2 TO 4 08/16/19 24 48525-INXN SKIN LESIONS, 2 TO 4 09/26/19 25 M8246-TPQPQTIX DYSTROPHIC NAILS ANY # I0113-KRRUNXOL DYSTROPHIC NAILS ANY # H8949-MIERWXTF DYSTROPHIC NAILS ANY # Next Appt Details Provider Name:Deidra Almodovar , 01/05/2025 08:15:00 AM, [address] [place] [address], [phone], Insurance Providers Payer Name Payer Address Payer Phone Subscriber Number Group Number Insured Name Patient Relationship to Insured Coverage Start Date Coverage End Date [facility] [address] [place] [address] [phone] [id number] Tiffany Ruelas Self - patient is the insured Medical (General) History Medical History History ICD Code Back,Hip,and Knee pain Diabetic High blood pressure Rheumatic fever thyroid Measles Mumps Chicken pox Joint implants/screws Cancer Surgical History Surgery Date(Month/Year) hysterectomy appendectomy back surgery colonoscopy wisdom teeth extraction Tooth extraction lung surgery 08/21/23
== END 2024-12-16 09:10 | disposition home or self-care (01) ==
LOC: HO.XRAY 09:09
PROVIDERS: PCP Internal Medicine; Visit Provider Anesthesiology
DX: M96.1 Postlaminectomy syndrome, not elsewhere classified (principal); M46.1 Sacroiliitis, not elsewhere classified; M16.0 Bilateral primary osteoarthritis of hip
CPT/HCPCS: 72110; 72170

== ENCOUNTER → 2024-12-16 09:13 | Outpatient (BNV) | payer OTHER, SELFPAY | PROVIDERS: PCP Internal Medicine; Visit Provider Radiology Diagnostic Radiology | DX: M25.78 Osteophyte, vertebrae (principal); M46.1 Sacroiliitis, not elsewhere classified | CPT/HCPCS: 72110; 72170 ==

== ENCOUNTER 2025-02-20 10:41 | Outpatient (REF) | payer OTHER, SELFPAY ==
--- OUTSIDE RECORDS SUMMARY | 2024-03-19 09:43 | XMS_ITS | Encounter Summary ---
Author Organization [facility] [place] [address] Care Team Providers Care Ops Manager Name Role Phone Clara Nelson MD Primary Care Provider [phone] Encounter Details Date Type Department Care Team (Late st Contact Info) Description 03/19/2024 9:43 AM EDT Hospital Encounter TH HISTORIC ENCOUNTERS EASTERN CONVERSION ONLY Marco Hunter MD [address] [place] [phone] Social History Tobacco Use Types Packs/Day [...] 10:12 AM Encounter Date: 03/19/2024 Status: Addendum Electrostatic Powder Coating Technician: Marco Hunter MD (Physician) Related Notes: Original [...] cm adenocarcinoma, 80% acinar type, 20% solid, [id number]-[id number], [id number]. Visceral pleural invasion was focally present. LVI was not present. 0 of 3 parenchymal nodes;0 of 1 R4 nodes, 0 of 2 sump nodes, 0 of 2 right level 9 nodes; and 0 of 1 right level 10 nodes were involved with tumor. APD-L1 TPS was 95%. A KRAS G12 C mutation was detected. EGFR, BRAF, ALK, [id number] were not detected. She reports mild postthoracotomy [...] lobe lung adenocarcinoma, PD-L1 TPS 95, KRAS [id number]. The patient underwent a right upper lobectomy [...] Care Team (Late st Contact Info) Description 03/06/2025 8:[address] [facility] CT Scan [address] [place] [phone] 03/10/2025 9:30 AM EDT Office Visit Thoracic Surgery - [place] [address] [facility] [address] [place] [phone] Liane Quiros, AMELIA [address] [place] [phone] 03/23/2025 9:00 AM EDT Office Visit [facility] Hematology Oncology [address] [place] [phone] Marco uHnter MD [address] [place] [phone] 03/23/2025 11:10 AM EDT Office Visit [facility] - [address] [place] [place] [phone] Aurelia Hart NP [address] [place] [address] Dr [place] [address] [place] [phone] 04/07/2025 8:15 AM EDT Office Visit Adult Medicine [address] [phone] Clara Nelson MD [address] [place] [address] 10/19/2025 8:00 AM EDT Appointment Radiology Department - [address] [phone] documented as of this encounter Procedures Procedure [...] on filedocumented in this encounter Care Teams Ops Manager Relationship Specialty Start Date End Date Clara Nelson MD [address] [place] [address] PCP - General Internal Medicine 04/25/21 documented as of this encounter
--- OUTSIDE RECORDS SUMMARY | 2025-02-20 11:40 | XMS_ITS | Patient Health Record ---
[facility] Organization [facility]alf [facility]ona [place] Address [address] [place] [address] Care Team Providers Care Assistant Professor Of Spanish Name Role Phone Clara Nelson Primary Care Provider UnavailDeidra Padilla Unavailable [phone] Allergies Allergen (clinical drug ingredient) Drug/Non Drug [...] Referring Provider Last Name Omar [facility] Referred Provider Deidra Almodovar Referred Address [address] [place],[address], Referred Provider Specialty Podiatry Referral Priority Routine Medications Medication SIG (Take, Route, Frequency, Duration) Notes Start Date End Date Status Compression Stockings 20-30mm Hg 1 pair wear daily; Duration: 30 days Active Extra Depth Orthopedic Shoes (1 Pair) with Customized Heat Molded Multidensity Innersoles (3 Pair) as directed Dx: NIDDM/Polyneuropathy (E11.42), Hammertoe Foot Deformity (M20.41,M20.42), Preulcerative Skin Lesion(s) (L85.1 11/15/2023 Active Atenolol 50 MG Oral; Duration: 90 Days Active Levothyroxine Sodium 125 MCG Oral; Duration: 90 Days Acti ve Simvastatin 20 MG Oral; Duration: 90 Days Active Buprenorphine 7.5 MCG/HR 1 patch to skin Transdermal 07/04/2023 Active Lisinopril 10 MG Oral; Duration: 90 Days Active Ammonium Lactate 12 % 1 application Exte rnally Twice a day; Duration: 30 days Active Immunizations Vaccine Route Administration Date Status Comme nts Influenza Unknown 02/16/2023 Administered Influenza Unknown 02/17/2024 Administered Social History Tobacco Use: Social History [...] Polyneuropathy due to type 2 diabetes mellitus (232281058) Type 2 diabetes mellitus with diabetic polyneuropathy (E11.42) Active confirmed Vital Signs Blood pressure diastolic 80 mm Hg 01/05/2025 Height 5ft 6in in 01/05/2025 Blood pressure systolic 130 mm Hg 01/05/2025 Weight 178 lbs 01/05/2025 BMI 28.73 kg/m2 01/05/2025 Procedures Procedure Date Ordered Date Performed Result Body Sit e 41398 I&D ABSCESS- SIMPLE,SINGLE 03/10/2024 N/A 98344-KWRD SKIN LESIONS, 2 TO 4 03/10/2024 N/A Z3442-ALMJFOST DYSTROPHIC NAILS ANY # 03/10/2024 N/A 23160-PUGV SKIN LESIONS, 2 TO 4 06/26/2024 N/A C7225-HSZOKXTK DYSTROPHIC NAILS ANY # 06/26/2024 N/A 28863-Dvcagyib Plate 09/25/2024 N/A 57251-KLHL SKIN LESIONS, 2 TO 4 09/25/2024 N/A P3328-WXQSSSLQ DYSTROPHIC NAILS ANY # 09/25/2024 N/A 30136-Zrgdjfzg Plate 01/05/2025 N/A 35524-TJRQ SKIN LESIONS, 2 TO 4 01/05/2025 N/A G9979-JYUEOFPO DYSTROPHIC NAILS ANY # 01/05/2025 N/A Encounters Encounter Location Date Provider Diagnosis [address] [address] 03/10/2024 Deidra Almodovar Type 2 diabetes mellitus with diabetic polyneuropathy E11.42 ; Tinea unguium B35.1 ; Muscle cramp, nocturnal R25.2 and Abscess of toe, left L02.[address] [address] 06/26/2024 Deidrakassandra Almodovar Type 2 diabetes mellitus with diabetic polyneuropathy E11.42 ; Tinea unguium B35.1 ; Muscle cramp, nocturnal R25.2 ; Other hammer toe(s) (acquired), left foot M20.42 and Other hammer toe(s) (acquired), right foot M20.[address] [address] 09/25/2024 Deidra Almodovar Type 2 diabetes mellitus with diabetic polyneuropathy E11.42 ; Edema, lower extremity R60.0 ; Tinea unguium B35.1 ; Muscle cramp, nocturnal R25.2 and Ingrown nail L60.[address] [address] 01/05/2025 Deidralynne Almodovar Type 2 diabetes mellitus with diabetic polyneuropathy E11.42 ; Edema, lower extremity R60.0 ; Tinea unguium B35.1 and Ingrown nail L60.[address] [address] 09/25/2024 Deidra Almodovar Assessments Encounter Date Diagnosis (ICD Code) Assessment Notes Treatment Notes Treatment Clinical Notes Section Notes 03/10/2024 Type 2 diabetes mellitus with diabetic polyneuropathy (ICD-10 - E11.42) 06/26/2024 Type 2 diabetes mellitus with diabetic polyneuropathy (ICD-10 - E11.42) 09/25/2024 Type 2 diabetes mellitus with diabetic polyneuropathy (ICD-10 - E11.42) 09/25/2024 Edema, lower extremity (ICD-10 - R60.0) 01/05/2025 Type 2 diabetes mellitus with diabetic polyneuropathy (ICD-10 - E11.42) 01/05/2025 Edema, lower extremity (ICD-10 - R60.0) 01/05/2025 Tinea unguium (ICD-10 - B35.1) 09/25/2024 Tinea unguium (ICD-10 - B35.1) 06/26/2024 Tinea unguium (ICD-10 - B35.1) 03/10/2024 Tinea unguium (ICD-10 - B35.1) 03/10/2024 Muscle cramp, nocturnal (ICD-10 - R25.2) 06/26/2024 Muscle cramp, nocturnal (ICD-10 - R25.2) 01/05/2025 Ingrown nail (ICD-10 - L60.0) 09/25/2024 Muscle cramp, nocturnal (ICD-10 - R25.2) [...] Treatment Pending Test Test Name Order Date 48327-XGHJIXG NAIL, 6 OR MORE 08/16/2023 46068-UUNHJXO NAIL, 6 OR MORE 11/15/2023 96738-Awnivgjh Plate 09/25/2024 85944-Apdapkqv Plate 01/05/2025 72539 I&D ABSCESS- SIMPLE,SINGLE 024 61311-JMAS SKIN LESIONS, 2 TO 4 06/26/19 25 37910-ROBE SKIN LESIONS, 2 TO 4 03/10/20 24 66345-GPCZ SKIN LESIONS, 2 TO 4 11/15/19 24 53488-GHFC SKIN LESIONS, 2 TO 4 09/26/19 25 72177-EXWD SKIN LESIONS, 2 TO 4 01/06/20 25 04298-DYPZ SKIN LESIONS, 2 TO 4 08/16/19 24 N5139-KMVPIZTB DYSTROPHIC NAILS ANY # Z0997-BGZXXELA DYSTROPHIC NAILS ANY # J7205-LJCDTXGX DYSTROPHIC NAILS ANY # J5201-USZQMDYH DYSTROPHIC NAILS ANY # Next Appt Details Provider Name:Deidra Almodovar , 04/16/2025 08:15:00 AM, [address] [place], [address], Insurance Providers Payer Name Payer Address Payer Phone Subscriber Number Group Number Insured Name Patient Relationship to Insured Coverage Start Date Coverage End Date [facility] [address] [place] [phone] [id number] Tiffany Ruelas Self - patient is the insured Medical (General) History Medical History History ICD Code Back,Hip,and Knee pain Diabetic High blood pressure Rheumatic fever thyroid Measles Mumps Chicken pox Joint implants/screws Cancer Surgical History Surgery Date(Month/Year) hysterectomy appendectomy back surgery colonoscopy wisdom teeth extraction Tooth extraction lung surgery 08/21/23
--- OUTSIDE RECORDS SUMMARY | 2025-02-20 11:40 | XMS_ITS | Clinical Summary ---
Author Organization [facility] Address [address] [place] [address] Care Team Providers Care Restaurant Front Manager Name Role Phone Clara Nelson MD Primary Care Provider [phone] Allergies Active Allergy Reactions Criticality Noted Date [...] Depression Screening 1960 Preventative Health Evaluation 1966 Fall Risk Assessment 2013 Osteoporosis Screening (DEXA Scan) 2013 Shingrix-Zoster Vaccine (2 of 2) 06/01/2020 04/06/2020 RSV Adult > 60+ Yrs or (1 - 1-dose 75+ series) 12/25/2023 COVID-19 Vaccine ( - season) 2025 07/10/2021, 09/16/2020, 08/26/2020 Influenza Vaccine (#1) 2025 , 04/02/2023, 03/02/2022, Additional history exists DTap / Tdap / Td (3 - Td or Tdap) 09/02/2031 09/01/2021, 04/07/2009 Pneumococcal Vaccine Completed 04/16/2017, 02/19/2014, 03/25/2003 Hepatitis B Vaccines Aged Out No long er eligible based on patient's age to complete this topic RSV Ped < 20 months Aged Out No longe r eligible based on patient's age to complete this topic Care Teams Restaurant Front Manager Relationship Specialty Start Date End Date Clara Nelson MD PCP - General Internal Medicine 07/06/21
--- OUTSIDE RECORDS SUMMARY | 2025-02-20 11:40 | XMS_ITS | Clinical Summary ---
Author Organization [facility] Address [address] [place] [address] Phone Care Team Providers Care Missileman Name Role Phone Clraa Nelson MD Primary Care Provider [phone] Allergies Active Allergy Reactions Criticality Noted Date Comments Aspirin Nausea And Vomiting 03/15/2005 Linolenic Acid Diarrhea 01/16/2012 Methocarbamol Nausea And Vomiting 07/24/2008 Penicillins Swelling 03/15/2005 Medications fluticasone propionate (FLONASE) 50 mcg/actuation nasal spray spray or apply 100 mcg inside Nose. 11/30/19 16 Active folic acid (FOLVITE) 1 mg tablet Active multivitamin (MULTIPLE VITAMINS ORAL) Take by mouth. Active albuterol HFA (PROAIR HFA ; PROVENTIL HFA ; VENTOLIN HFA) 90 mcg/actuation inhaler Inhale 2 puffs by mouth every 6 (six) hours if needed for wheezing. 6.7 g 11 08/29/19 25 026 Active lisinopriL (PRINIVIL,ZESTR IL) 10 mg tablet Take 1 tablet (10 mg total) by mouth 1 (one) time each day. 90 each 1 09/06/19 25 Active atenoloL (TENORMIN) 50 mg tablet TAKE 1/2 TABLET BY MOUTH DAILY 45 tablet 1 10/30/19 25 Active levothyroxine (SYNTHROID, LEVOTHROID) 125 mcg tablet TAKE 1 TABLET BY MOUTH ONCE A DAY BEFORE BREAKFAST 90 each 1 12/04/19 25 Active gabapentin (NEURONTIN) 100 mg capsule Take 1 capsule (100 mg total) by mouth. 10/29/19 25 Active furosemide (Lasix) 20 mg tablet Take 1 tablet (20 mg total) by mouth 1 (one) time each day for 3 days. 3 each 12/10/19 25 Active isosorbide mononitrate (IMDUR) 30 mg 24 hr tablet TAKE 1 TABLET BY MOUTH DAILY 90 tablet 1 12/18/19 25 Active apixaban (Eliquis) 5 mg tablet TAKE 1 TABLET BY MOUTH TWO TIMES A DAY 90 tablet 3 02/07/20 25 Active simvastatin (ZOCOR) 40 mg tablet TAKE 1 TABLET BY MOUTH AT BEDTIME 90 tablet 3 02/13/20 25 Active simvastatin (ZOCOR) 40 mg tablet TAKE 1 TABLET BY MOUTH AT BEDTIME 90 tablet 1 07/30/19 25 025 Discontinued apixaban (ELIQUIS) 5 mg tablet Take 1 tablet (5 mg total) by mouth 2 (two) times a day. 90 tablet 2 09/18/19 25 025 Discontinued Active Problems Problem Noted Date Diagnosed Date [...] 03/13/2018 Overweight (BMI 25.0-29.9) 12/25/2017 Atrial fibrillation (CMS/HCC V24, CMS/HCC V28) Carpal tunnel syndrome COPD (chronic obstructive pu lmonary disease) (CMS/HCC V24, CMS/HCC V28) Overview (08/27/2024): On cxr 12/03/2017 Hypertension Hx of cervical cancer Overview (08/27/2024): : per patient. stated had hysterectomy Rheumatoid arthritis ([facility] [place], [facility] [place]28) Pure hypercholesterolemia OA (osteoarthritis) of hip Overview (08/27/2024): : S/p MRI 08/05/2017 No fractures, effusion or bony destructive lesions. Consistent with moderate DJD. Repeat MRI 02/[address] 06/2018 with moderate DJD and loose body. Follows with Dr Edge SLE (systemic lupus erythema tosus) ([facility] [place], [facility] [place]28) Lumbar stenosis Overview (08/27/2024): S/p CT with moderate central stenosis and bilateral foraminal narrowing at L4-L5 s/p corticosteroid injections with physiatry. S/p hemilaminectomy 11/2017 Hypothyroidism Resolved Problems Problem Noted Date Diagnosed Date Resolved Date Elevated hematocrit 07/29/2022 08/28/19 25 Arthritis of right hip 07/09/201808/27 Encounters Date Type Department Care Team Description 02/09/2025 Telephone Lung Screening Program - [address] [place] [phone] Cyndee De [place] 12/17/2024 Telephone [facility] [address] [place] [phone] Jorge Morales MD 12/09/2024 2:30 PM EDT Office Visit Adult Medicine [address] [phone] Aurelia Sharma PA Pedal edema (Primary Dx) from Last 3 Months Immunizations Name Administration Dates Next Due H1N1 Inj Preservative Free 06/10/2009 Influenza Quadravalent, MDCK , 0.5ml, with preservative (Flucelvax) 6mo and older 04/16/2017 Influenza trivalent, 0.5mL ( Fluad) 65yo and older 03/07/2024 Influenza trivalent, 0.5mL ( Fluzone High-dose) 65yo and older 04/02/2023,03/02/2022,03/25/2021,04/08,03/28/2018 Influenza trivalent, with pr eservative (Fluzone; Afluria) 6mo and older 05/02/2016,03/27/2014,06/03/2013,04/24,06/07/2011,04/07/2010,03/17/2009 ,03/03/2008,03/18/2007,05/09/2006,06/2004 Pfizer SARS-CoV-2 COVID-19, mRNA, LNP-S, preservative free 07/10/2021,09/16/2020,08/26/2020 [...] 12/29/2004 COPD (chronic obstructive pu lmonary disease) ([facility] [place]24, [facility] V28) 12/05/2017 On cxr 12/03/2017 Lumbar stenosis [...] elvi ent. stated had hysterectomy Atrial fibrillation (CMS/HCC V24, CMS/HCC V28) 09/04/2023 Rheumatoid arthritis (CMS/ C V24, CMS/HCC V28) Lupus History of lung cancer 08/27/2024 [...] Ectopic Multiple Livin g Live Births 1 1 1 1 Date Outcome GA Total Labor Labor/2nd/3rd Weight Sex Type Anes PTL Shivani A1 A5 Name Clin Term Last Filed Vital Signs Vital Sign Reading Time Taken Comments Blood Pressure 120/89 12/09/2024 2:37 PM EDT Pulse 82 12/09/2024 2:37 PM EDT Temperature 36.6 C (97.9 F) 12/09/2024 2:37 PM EDT Respiratory Rate 20 12/09/2024 2:37 PM EDT Oxygen Saturation 96% 09/17/2024 1:20 PM EDT Inhaled Oxygen Concentration - - Weight 90.7 kg (200 lb) 12/09/2024 2:37 PM EDT Height 167.6 cm (5' 6 ) 12/09/2024 2:37 PM EDT Body Mass Index 32.28 12/09/2024 2:37 PM EDT Plan of Treatment Upcoming Encounters Date Type Department Care Team (Late st Contact Info) Description 03/06/2025 8:[address] [facility] CT Scan [address] [place] [phone] 03/10/2025 9:30 AM EDT Office Visit Thoracic Surgery - [place] [address] [facility] [address] [place] [phone] Liane Quiros, AMELIA [address] [place] [phone] 03/23/2025 9:00 AM EDT Office Visit [facility] Hematology Oncology [address] [place] [phone] Marco Hunter MD [address] [place] [phone] 03/23/2025 11:10 AM EDT Office Visit [facility] - [facility] [address] [place] [address] [place] [phone] Aurelia Hart NP [address] [place] [address] Dr [place] [address] [place] [phone] 04/07/2025 8:15 AM EDT Office Visit Adult Medicine [facility] - [address] [phone] Clara Nelson MD [address] [place] [address] 10/19/2025 8:00 AM EDT Appointment Radiology Department - [address] [phone] Health Maintenance Due Date Last Done Comments Falls Risk Assessment 05/25/2022 Hepatitis C Screening 05/25/2022 Medicare Annual Wellness Visit 05/25/2022 Osteoporosis Screening (Bone Density Screening) 05/25/2022 Social Influencers of Health Screening 05/25/2022 Lung Cancer Screening (Low Dose CT) 03/14/2024 03/14/2023, 03/13/2022 Depression Screening 06/18/2024 COVID-19 Vaccine (6 - Pfizer risk season) 2025 03/20/2024, 03/23/2023, 07/10/2021, Additional history exists Influenza Vaccine (#1) 2025 , 04/02/2023, 03/02/2022, Additional history exists Hypertension/CHF/CAD Annual BMP Blood Test 09/05/2025 09/05/2024, 02/28/2024, 01/17/2024, Additional history exists Cholesterol Screening (Lipid Panel) 10/23/2029 10/23/2024, 02/28/2024, 12/06/2023 DTaP,Tdap,and Td Vaccines (3 - Td or Tdap) 09/02/2031 09/01/2021, 04/07/2009 Pneumococcal Vaccine: 50+ Years Completed 04/16/2017, 02/19/2014, 03/25/2003 Zoster Vaccines Completed 03/23/2023, 03/19, 12/25/2017 RSV Immunization Adult Patients Completed 03/20/2024 Breast Cancer Screening Discontinued 10/15/19, 09/27/2023, 09/27/2023, Additional history exists Colorectal Cancer Screening: Colonoscopy Discontinued 11/12/2024 HIB Vaccines Aged Out No longer eligi [...] Procedure Name Priority Date/Time Associated Diagnosis Comments EXTERNAL COLONOSCOPY REPORT Routine 11/12/2024 2:04 PM EDT LIPID PANEL WITH REFLEX TO DIRECT LDL Routine 10/23/2024 9:58 AM EDT Coronary artery disease, unspecified vessel or lesion type, unspecified whether angina present, unspecified whether [place] or transplanted heart MG MAMMO DIGITAL SCREENING W LION BILAT Routine 10/14/2024 8:05 AM EDT Encounter for screening mammogram for breast cancer BASIC METABOLIC PANEL Routine 09/05/2024 9:13 AM EDT Primary hypertension CT LUNG SCREENING LOW DOSE Routine 03/14/2023 1:48 PM EDT Personal history of nicotine dependence from Last 3 Months or Most Recently Relevant to Health Maintenance Results * External Colonoscopy Report (11/12/2024 2:04 PM EDT) Anatomical Region Laterality Modality Endoscopy us Historical Provider GI~PROCEDURE ORDERABLES F inal Result * (ABNORMAL) Lipid panel with reflex to direct LDL (10/23/2024 9:58 AM EDT) Cholesterol 190 0 - 200 mg/dL LAB CHEMISTRY METHOD 10/23/2024 1:56 PM EDT [facility] Triglycerides 180(H) 0 - 150 mg/dL LAB CHEMISTRY METHOD 10/23/2024 1:56 PM EDT [facility] HDL 57 >=40 mg/dL LAB CHEMISTRY METHOD 10/23/2024 1:56 PM EDT [facility] LDL Calculated 97 0 - 100 mg/dL LAB CHEMISTRY METHOD 10/23/2024 1:56 PM EDT [facility] VLDL Cholesterol Moy 36 mg/dL LAB CHEMISTRY METHOD 10/23/2024 1:56 PM EDT [facility] Non HDL Chol. (LDL+VLDL) 133 <145 mg/dL LAB CHEMISTRY METHOD 10/23/2024 1:56 PM EDT [facility] Chol/HDL Ratio 3.3 0.0 - 4.4 LAB CHEMISTRY METHOD 10/23/2024 1:56 PM EDT [facility] Blood Venous blood specimen / Unknown Venipuncture / Unknown 10/23/2024 9:58 AM EDT 10/23/2024 9:59 AM EDT us Aurelia Hart NP LAB BLOOD ORDERABLES Final Res ult [facility] [address] [place] [address], [place] [phone] * MG Mammo Digital Screening w Lion bilat (10/14/2024 8:05 AM EDT) Anatomical Region Laterality Modality Breast Bilateral Mammography 10/14/2024 6:31 PM EDT Impressions 10/14/2024 6:39 PM EDT 1. No mammographic evidence of malignancy 2. Scattered fibroglandular tissue BI-RADS CATEGORY: 2 - BENIGN RECOMMENDATION: Screening bilateral mammogram is recommended in 1 year. Mammo Location: [facility], [address] [place] [address], [id number], . -------- FINAL REPORT -------- Dictated By: Vic Fairbanks Dictated Date: 10/14/2024 18:31 ET Assigned Physician: Vic Fairbanks Reviewed and Electronically Signed By: Vic Fairbanks Signed Date: 10/14/2024 18:39 ET Workstation ID: [id number] Transcribed By: Self Edit Transcribed Date: 10/14/2024 18:31 ET Narrative 10/14/2024 6:39 PM EDT A BILATERAL DIGITAL 3D SCREENING MAMMOGRAPHY HISTORY: Routine screening. Family history of breast cancer in sister. Family history of breast cancer in grandmother COMPARISON: Multiple priors dating back to 07/29/2020 Technique: Bilateral full field digital mammography (3D) was performed using standard CC and MLO projections CAD was [...] is recommended in 1 year. Mammo Location: [facility], [address] [place] [address], [id number], . -------- FINAL REPORT -------- Dictated By: Vic Fairbanks Dictated Date: 10/14/2024 18:31 ET Assigned Physician: Vic Fairbanks Reviewed and Electronically Signed By: Vic Fairbanks Signed Date: 10/14/2024 18:39 ET Workstation ID: [id number] Transcribed By: Self Edit Transcribed Date: 10/14/2024 18:31 ET Clara Nelson MD IMG BI PROCEDURES Final Result * (ABNORMAL) Basic metabolic panel (09/05/2024 9:13 AM EDT) Sodium 141 133 - 145 mmol/L LAB CHEMISTRY METHOD 09/05/2024 2:53 PM [facility] Potassium 4.9 3.5 - 5.5 mmol/L LAB CHEMISTRY METHOD 09/05/2024 2:53 PM [facility] Chloride 109 96 - 110 mmol/L LAB CHEMISTRY METHOD 09/05/2024 2:53 PM [facility] CO2 26 21 - 32 mmol/L LAB CHEMISTRY METHOD 09/05/2024 2:53 PM [facility] Anion Gap 6 3 - 11 LAB CHEMISTRY METHOD 09/05/2024 2:53 PM [facility] Glucose 127(H) 70 - 100 mg/dL LAB CHEMISTRY METHOD 09/05/2024 2:53 PM [facility] BUN 34(H) 5 - 25 mg/dL LAB CHEMISTRY METHOD 09/05/2024 2:53 PM [facility] Creatinine 1.18(H) 0.50 - 1.10 mg/dL LAB CHEMISTRY METHOD 09/05/2024 2:53 PM [facility] eGFR 48(L) >=60 mL/min/1. 73m2 LAB CHEMISTRY METHOD 09/05/2024 2:53 PM [facility] Comment:Calculation based on the Chronic Kidney Disease Epidemiology Collaboration (CKD-EPI) equation refit without adjustment for race. BUN/Creatinine Ratio 28.8 LAB CHEMISTRY METHOD 09/05/2024 2:53 PM [facility] Calcium 9.5 8.5 - 10.5 mg/dL LAB CHEMISTRY METHOD 09/05/2024 2:53 PM [facility] Blood Venous blood specimen / Unknown Venipuncture / Unknown 09/05/2024 9:13 AM EDT 09/05/2024 9:13 AM EDT us Clara Nelson MD LAB BLOOD ORDERABLES Final Resul t [facility] [address] [place] [address], * CT LUNG SCREENING LOW DOSE (03/14/2023 1:48 PM EDT) Anatomical Region Laterality Modality Computed Tomogra phy 03/14/2023 8:59 AM EDT Narrative 03/14/2023 1:48 PM EDT [facility] Diagnostic Imaging Department [address] [place] [address] Patient: HERNANDO RUELAS /Age/Sex: 1950 - 72 - F Unit#: [id number] Location/Status: [facility]/AL CLI Mnemonic/Ordering Site: [facility] Ordering Physician: JADE PEREZ MD CT Lung Screening Low Dose - 03/14/23908 Report Status:Signed History: 72 year-old 58 pack-year current smoker, asymptomatic, for lung cancer screening Comparison: 03/13/2022 Technique: Helical volumetric imaging of the thorax was performed, using low- dose technique, without IV contrast. DLP: 166.46 mGy/cm CTDIvol: 4.83 mGy Breeze Tech VCT Iterative reconstruction technique Findings: Chest: There is no definite evidence for mediastinal or hilar adenopathy. There is mild bilateral hilar prominence probably vascular and unchanged. Thoracic aorta is ectatic and is extensive calcification in the aortic arch. Heart size normal. There is scattered coronary artery calcification. There is no pericardial or pleural effusion. There is chronic obstructive pulmonary disease with emphysematous changes. There is a bullous lesion in the right upper lobe with adjacent pleural thickening and some nodularity along its inferior and lateral aspect which has progressed. There is also a focal infiltrate and/or atelectasis with air bronchograms inferior aspect of the lingula increased since the previous. There are small calcified granuloma in the right upper lobe there is a tiny nodule in the left upper lobe which appears calcified. Calcified granuloma in the right middle lobe. There is a perivascular nodule in the left lower lobe seen on image 139 series 3 measuring maximally 6 mm in diameter unchanged. No new no other new nodule. Abdomen: This study was performed without contrast and with lower than standard dose. These factors reduce the sensitivity for detection of small lesions in the upper abdomen. There is thickening of the left adrenal gland unchanged. Views of the upper abdomen are limited. There are degenerative changes of the thoracic spine again. Impression: 1. There is chronic obstructive pulmonary disease with emphysematous changes again noted. There is a bullous lesion in the right upper lobe with adjacent pleural thickening and nodularity which is progressed since the previous examination. Differential diagnosis includes inflammatory versus neoplastic process. Additionally there is an infiltrate or atelectasis with air bronchograms in the lingula which has also progressed and is probably inflammatory in nature. Recommend short-term interval follow-up examination to reassess. 2. Multiple small pulmonary nodules many of which appear calcified stable and unchanged. Lung RADS 0: Incomplete. Findings suggestive of an inflammatory or infectious process. [id number] [id number] [id number] Dictating Physician: RUKHSANA SARAVIA MD Electronically Signed by: RUKHSANA SARAVIA MD Dic Date/Time: 03/14/23 1335 Sign date/Time: 03/14/23 1348 Procedure Note Rukhsana Saravia MD - 07/24/2023 [facility] Diagnostic Imaging Department [address] [place] [id number] Patient: HERNANDO RUELAS /Age/Sex: 1950 - 72 - F Unit#: [id number] Location/Status: [facility]/REG CLI Mnemonic/Ordering Site[facility] Ordering Physician: JADE PEREZ MD CT Lung Screening Low Dose - 03/14/23 - 908 Report Status:Signed History: 72 year-old 58 pack-year current smoker, asymptomatic, for lungcancer screening Comparison: 03/13/2022 Technique: Helical volumetric imaging of the thorax was performed, usinglow- dose technique, without IV contrast. DLP: 166.46 mGy/cm CTDIvol: 4.83 mGy SelSaharaT Iterative reconstruction technique Findings: Chest: There is [...] Findings suggestive of an inflammatory orinfectious process. [id number] [id number] [id number] [id number] Dictating Physician: RUKHSANA SARAVIA MD Electronically Signed by: RUKHSANA SARAVIA MD Dic Date/Time: 03/14/23 1335 Sign date/Time: 03/14/23 1348 Jade Perez MD IMG CT PROCEDURES Final Result from Last 3 Months or Most Recently Relevant to Health Maintenance Insurance MED[employer]ARE [employer] Advance Directives Documents on File Type Date Recorded Patient Veneer Jointer Helper Expl anation Health Care Decision (hx) 01/02/2019 [...] (hx) 01/02/2019 AD ARANDA DIRECTIVE Care Teams Missileman Relationship Specialty Start Date End Date Clara Nelson MD [address] [place] [phone] PCP - General Internal Medicine 04/25/21
[2025-02-20 13:12] LABS: MANUAL DIFF FLAG NO
[2025-02-20 13:24] LABS: Hematocrit 40.5 % (37.0-47.0); Hemoglobin 12.9 g/dl (12.0-16.0); Imm Gran Abs Auto 0.02 X10*3/uL (0.00-0.03); Imm Gran Pct Auto 0.3 % (0.0-0.4); Lymphocytes Absolute Auto 1.8 X10*3/uL (1.2-4.9); Mean Corpuscular HGB Conc 31.9 g/dl (31.0-35.0); Mean Corpuscular Hemoglobin 32.9 pg (27.0-33.0); Mean Corpuscular Volume 103.3 fL (80.0-98.0); NRBC Abs Auto 0.000 X10*3/uL (0.0-0.012); NRBC Pct Auto 0.0 /100WBC (0.0-0.2); Platelet Count 186 X10*3/uL (160-400); Red Blood Count 3.92 X10*6/uL (4.20-5.50); White Blood Count 5.9 X10*3/uL (4.8-10.8)
[2025-02-20 13:52] LABS: Alanine Aminotransferase 24 U/L (0-31); Albumin Level 4.1 g/dL (3.5-5.0); Alkaline Phosphatase 62 U/L (39-117); Anion Gap 12 (12-20); Aspartate Amino Transferase 26 U/L (5-31); Blood Urea Nitrogen 29 mg/dL (9-16); Calcium 9.3 mg/dL (8.4-10.2); Carbon Dioxide 25 mmol/L (22-29); Chloride 111 mmol/L (96-108); Estimated Glomerular Filt Rate 46; Potassium 5.3 mmol/L (3.3-5.1); Sodium 143 mmol/L (135-145); Total Protein 6.9 g/dL (6.5-8.0)
== END 2025-02-20 10:42 | disposition home or self-care (01) ==
LOC: HO.HMGCLDS 10:41
PROVIDERS: PCP Internal Medicine; Visit Provider Student in an Organized Health Care Education/Training Program
DX: M05.79 Rheumatoid arthritis with rheumatoid factor of multiple sites without organ or systems involvement (principal)
CPT/HCPCS: 36415; 80053; 85025; 85652; 86140

== ENCOUNTER 2025-02-23 09:02 | Outpatient (AMB) | payer OTHER, SELFPAY ==
--- OUTSIDE RECORDS SUMMARY | 2024-03-19 09:43 | XMS_ITS | Encounter Summary ---
Author Organization [facility] Address [address] [place] [address] Care Team Providers Care Art Studio Teacher Name Role Phone Clara Nelson MD Primary Care Provider [phone] Encounter Details Date Type Department Care Team (Late st Contact Info) Description 03/19/2024 9:43 AM EDT Hospital Encounter TH HISTORIC ENCOUNTERS EASTERN CONVERSION ONLY Marco Hunter MD [address] [place] [phone] Social History Tobacco Use Types Packs/Day [...] 10:12 AM Encounter Date: 03/19/2024 Status: Addendum Hurl Shaker: Marco Hunter MD (Physician) Related Notes: Original [...] cm adenocarcinoma, 80% acinar type, 20% solid, [id number], [id number]. Visceral pleural invasion was focally present. LVI was not present. 0 of 3 parenchymal nodes;0 of 1 R4 nodes, 0 of 2 sump nodes, 0 of 2 right level 9 nodes; and 0 of 1 right level 10 nodes were involved with tumor. APD-L1 TPS was 95%. A KRAS G12 C mutation was detected. EGFR, BRAF, ALK, [id number] were not detected. She reports mild postthoracotomy [...] lobe lung adenocarcinoma, PD-L1 TPS 95, KRAS [id number]. The patient underwent a right upper lobectomy [...] Info) Description 03/06/2025 8:00 AM EDT Appointment [facility] CT Scan [address] [place] [phone] 03/10/2025 9:30 AM EDT Office Visit Thoracic Surgery - [place] [address] [facility] [address] [place] [phone] Liane Quiros, AMELIA [address] [place] [phone] 03/23/2025 9:00 AM EDT Office Visit [facility] Hematology Oncology [address] [place] [phone] Marco Hunter MD [address] [place] [phone] 03/23/2025 11:10 AM EDT Office Visit [facility] - [address] [place] [place] [phone] Aurelia Hart NP [address] [place] [address] Dr [place] [address] [place] [phone] 04/07/2025 8:15 AM EDT Office Visit Adult Medicine [address] [phone] Clara Nelson MD [address] [place] [address] 10/19/2025 8:00 AM EDT Appointment Radiology Department - [address] [phone] documented as of this encounter Procedures Procedure [...] on filedocumented in this encounter Care Teams Art Studio Teacher Relationship Specialty Start Date End Date Clara Nelson MD [address] [place] [address] PCP - General Internal Medicine 04/25/21 documented as of this encounter
--- NOTE | 2025-02-23 09:04 | A.OFFVIS_ITS ---
Vital Signs 02/23/25 09:09 Height 5 ft 6 in Weight 198 lb 13.711 oz BMI 32.1 BP 142/80 H Blood Pressure Location Lt brachial Position Sitting Pulse 69 Pulse Source Pulse Oximeter Pulse Oximetry (%) 95 Oxygen Delivery Method Room Air Intake Visit Reasons: Follow up RA Intake Note: Patient presents for RA follow up. Allergies fish oil Allergy (Verified 02/23/25 09:08) unknown penicillin G Allergy (Verified 02/23/25 09:08) unknown aspirin Adverse Reaction (Intermediate, Verified 02/23/25 09:08) Nausea and Vomiting methocarbamol Adverse Reaction (Intermediate, Verified 02/23/25 09:08) Nausea and Vomiting sulfasalazine Adverse Reaction (Intermediate, Verified 02/23/25 09:08) Nausea and Vomiting Medication List - Last Reconciled 02/23/25 by Lin Perez MD acetaminophen (Tylenol Extra Strength) 1,500 mg PO BID apixaban (Eliquis) 5 mg PO BID atenolol 50 mg PO DAILY gabapentin 100 mg PO BEDTIME levothyroxine 125 mcg PO DAILY lisinopril 10 mg PO DAILY multivitamin 1 tab PO DAILY simvastatin 20 mg PO BEDTIME HPI Comments Details: Patient is a 74-year-old female with hyperlipidemia, hypertension complicated by CKD stage 3, hypothyroidism, AFib on Eliquis, polyarticular osteoarthritis (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 However, has multiple complaints with respect to her back, left hip and left knee. - Feels that nothing currently is helping her OA. Has tried injections, physical therapy and medications such as Tylenol but they have not been helping. Today, - On Simponi Aria 2mg/kg every 8 weeks - Doing well overall - Still complaining of knee pain and back pain that makes even sleeping at night difficult - Gabapentin not that helpful, no side effects from the low dose Rheumatologic History: Onset ? 2004 ++RF -ve CCP MTX started 04/2022 -stopped 11/2022 due to nausea. hydroxychloroqine considered but eye doctor advised against use - some baseline retinal findings. SSZ 08/2023 couldn;t toerate it due to GI upset, nausea & vomiting Simponi Aria infusions 12/2023: Effective Current Rheumatology Medication(s): Simponi Aria infusions every 8 weeks Gabapentin 100mg nightly PFSH Medical History Rheumatoid factor positive Lung cancer Chronic pain syndrome Sacroiliitis Sacroiliac joint dysfunction of both sides Postlaminectomy syndrome of lumbar region Surgical History S/P lobectomy of lung Hx of tonsillectomy History of total hysterectomy with bilateral salpingo-oophorectomy (BSO) H/O bilateral cataract extraction Status post right breast lumpectomy History of lumbar fusion History of back surgery Hx of appendectomy Family History Sister Breast cancer Arthritis Paternal Grandmother Breast cancer Mother Arthritis Diabetes Social History Household Members: Family Housing: 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 Review of Systems Const Details: Review of Systems Constitutional: Denies fever, chills, weight loss ENT: Denies vision changes, eye pain or eye redness, dental caries, dry mouth GI: Denies nausea, vomiting, diarrhea, abdominal pain, change in BM Pulm: Denies SOB, PEDERSON, hemoptysis, wheezing Cards: Denies chest pain, palpitations Skin: Denies Raynaud's, rash, nail changes, photosensitivity, PACS SPECIALIST: Denies headaches, weakness, paresthesias, recurrent falls MSK: as per HPI All other systems reviewed and are unremarkable except noted above Physical Exam Exam Exam: Vital signs reviewed Physical Examination CONSTITUITIONAL Patient alert and cooperative. Well appearing and in no apparent painful distress MSK Hands * Right Hand: Able to make a fist. No swelling or tenderness to palpation of the MCPs, PIPs or DIPs. 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 No swelling or tenderness to palpation of the MCPs, PIPs or DIPs. No deformities noted. Wrists * Right Wrist: Full ROM to flexion and extension. No swelling or TTP * Left Wrist: Full ROM to flexion and extension. No swelling or TTP Elbows * Right Elbow: Full ROM. No swelling or TTP. No TTP of the medial epicondyle. No TTP of the lateral epicondyle * Left Elbow: Full ROM. No swelling or TTP. No TTP of the medial epicondyle. No TTP of the lateral epicondyle Shoulders * Right shoulder: No swelling noted. No TTP of the AC joint. No TTP of the subacromial bursa. No TTP of the posterior shoulder * Left shoulder: No TTP of the AC joint. No TTP of the subacromial bursa. No TTP of the posterior shoulder Hip bursa: No tenderness to palpation bilaterally Knees * Right knee: Full ROM. No swelling noted. No TTP of the knee joint line. No TTP of pes anserine bursa * Left knee: Full ROM. Swelling noted but no warmth. No TTP of the knee joint line. No TTP of pes anserine bursa. * Crepitations felt bilaterally Ankles * Right ankle: Good ankle dorsiflexion and plantar flexion. No swelling. No TTP of the ankle joint * Left ankle: Good ankle dorsiflexion and plantar flexion. No swelling. No TTP of the ankle joint * Ankle edema noted bilaterally Feet * Right foot: Negative squeeze test * Left foot: Negative squeeze test Tender points? * No tenderness to palpation of the bilateral trapezius, supraspinatus, anterior costochondral junctions, bilateral suboccipital muscle insertions SKIN No rashes Vital Signs: Last Vital Signs Pulse 69 02/23/25 09:09 BP 142/80 H 02/23/25 09:09 Pulse Ox 95 02/23/25 09:09 Oxygen Delivery Method Room Air 02/23/25 09:09 BMI result Body Mass Index 32.1 Office Procedures AMB Joint Injection/Aspiration Joint Injection/Aspiration Details: Procedure was explained to the patient and informed consent was obtained. ? Risks associated with the procedure were discussed with the patient including but not limited to bleeding, infection, drug reactions and reactions to the topical anesthetic. Patient made aware of signs to look out for infectious complications. The area of interest was identified and confirmed with patient. ?This was subseq uently cleaned with chlorhexidine x 2. ? The area was then anesthetized using ethyl chloride spray. 40 mg Kenalog with 1 cc 1% lidocaine was injected without issue. ?Minimal to no bleeding. ?Patient tolerated procedure. Primary Site: right knee Prep: site was prepped using aseptic technique and ethochloride spray was applied Injected: 40 mg of, Kenalog, with 1 mL of and 1% plain lidocaine Approach Used: lateral parapatellar Procedure: The patient tolerated the procedure well Coding 22973 - Large joint Procedure code (CPT) selection complete AMB Joint Injection/Aspiration Joint Injection/Aspiration Details: Procedure was explained to the patient and informed consent was obtained. ? Risks associated with the procedure were discussed with the patient including but not limited to bleeding, infection, drug reactions and reactions to the topical anesthetic. Patient made aware of signs to look out for infectious complications. The area of interest was identified and confirmed with patient. ?This was subsequently cleaned with chlorhexidine x 2. ? The area was then anesthetized using ethyl chloride spray. 40 mg Kenalog with 1 cc 1% lidocaine was injected without issue. ?Minimal to no bleeding. ?Patient tolerated procedure. Primary Site: left knee Prep: site was prepped using aseptic technique and ethochloride spray was applied Injected: 40 mg of, Kenalog, with 1 mL of and 1% plain lidocaine Approach Used: lateral parapatellar Coding 86751 - Large joint Procedure code (CPT) selection complete Office Meds lidocaine (PF) 10 mg/mL (1 %) injection solution Performing Provider: Lin Perez MD Performing Location: [facility] Administered by: David Shin RN on 02/23/25 10:30 Dose Route Admin Location Dispensed Lot Number Expiration Date [facility] Heel [employer]ricker 1 mL Infiltration right knee 2 mL [id number] 09/15/26 23446-698-93 [employer] Total Dispensed Waste 2 mL 50 % Kenalog 40 mg/mL suspension for injection Performing Provider: Lin Perez MD Performing Location: [facility] Administered by: David Shin RN on 02/23/25 10:30 Dose Route Admin Location Dispensed Lot Number Expiration Date [facility] Heel Pricker 40 mg intra-articular right knee 1 mL [id number] 02/15/27 2220-1595-91 [facility] Total Dispensed Waste 1 mL 0 % lidocaine (PF) 10 mg/mL (1 %) injection solution Performing Provider: Lin Perez MD Performing Location: [facility] Administered by: David Shin RN on 02/23/25 10:30 Dose Route Admin Location Dispensed Lot Number Expiration Date [facility] Heel Pricker 1 mL Infiltration left knee 2 mL [id number] 09/15/26 53124-792-79 [facility] Total Dispensed Waste 2 mL 50 % Kenalog 40 mg/mL suspension for injection Performing Provider: Lin Perez MD Performing Location: [facility] Administered by: David Shin RN on 02/23/25 10:30 Dose Route Admin Location Dispensed Lot Number Expiration Date [facility] Heel [employer] 40 mg intra-articular left knee 1 mL [id number] 02/15/27 2911-5613-06 [facility] Total Dispensed Waste 1 mL 0 % Results Reviewed Results Reviewed: Laboratory Tests 10/28/24 02/20/25 08:46 10:44 WBC 5.9 RBC 3.92 L Hgb 12.9 Hct 40.5 Plt Count 186 ESR 29 H Sodium 143 Potassium 5.3 H Chloride 111 H Carbon Dioxide 25 BUN 29 H Creatinine 1.14 Estimated GFR 34 46 AST 26 ALT 24 Alkaline Phosphatase 62 C-Reactive Protein 0.78 H < 0.10 Laboratory Tests 04/04/22 11:20 Cycl Citrul Peptide IgG <16 SS-A/Ro Antibody <1.0 NEG SS-B/La Antibody <1.0 NEG Laboratory Tests 10/15/23 10/21/24 09:56 08:04 Hepatitis A IgM Ab Nonreactive Hep Bs Antigen Negative Hep Bs Antibody NONREACTIVE Hep B Core Total Ab Nonreactive Hepatitis C Ab (EIA) Nonreactive TB Test (T-Spot) Com Negative Assessment & Plan Assessment & Plan (1) Seropositive rheumatoid arthritis of multiple joints: Comment: Onset ? 2004 ++RF -ve CCP MTX started 04/2022 -stopped 11/2022 due to nausea. hydroxychloroqine considered but eye doctor advised against use - some baseline retinal findings. SSZ 08/2023 couldn;t toerate it due to GI upset, nausea & vomiting Simponi Aria infusions 12/2023: Effective Code(s): M05.79 - Rheumatoid arthritis with rheumatoid factor of multiple sites without organ or systems involvement Category: Medical Plan: #Seropositive RA Patient is a 73-year-old female with seropositive rheumatoid arthritis here today for follow up. Currently in remission on Simponi Aria monotherapy Plan - Simponi Aria Infusions 2mg/kg every 8 weeks - RTC 6 months - Labs before visit: CBC, CMP, ESR, CRP (2) Polyarticular osteoarthritis: Code(s): M15.9 - Polyosteoarthritis, unspecified Plan: #Polyarticular OA Patient with polyarticular OA S/p bilateral knee steroid injection today Increase gabapentin Plan - Gabapentin 300mg at night (3) Screening for osteoporosis: Code(s): Z13.820 - Encounter for screening for osteoporosis Plan: #Screening for osteoporosis No DEXA scan seen Will get DEXA to assess bone density Risk factors for osteoporosis: Age, RA, previous steroid use (4) Encounter for monitoring golimumab therapy: Code(s): Z51.81 - Encounter for therapeutic drug level monitoring; Z79.620 - intermediate manager (current) use of immunosuppressive biologic Plan: #Long-term Use of TNF Inhibitors: Simponi Aria Discussed with the patient the benefits and risks of TNF inhibitors for the magalis gement of the rheumatic condition Benefits include reduce pain, maintenance of remission and reduction of flares as well as ?progression of the disease Risks include injection sites/infusion reactions, serious infections (such as bacterial infections, opportunistic infections), malignancy, delaminating syndromes, autoimmune phenomena, CHF exacerbations, palmar plantar psoriasis and cytopenias Recommended rotating injection sites, and holding medication during and for up to 1 week after resolution of a febrile illness or open skin wound Plan I spent 30 minutes reviewing the record and labs, taking a history, examining the patient, discussing the treatment plan, ordering diagnostic work up and documenting in the medical record Orders: Orders AMB Joint Injection/Aspiration Today M17.0 - Bilateral primary osteoarthritis of knee XR DEXA axial skeleton Today M81.0 - Age-related osteoporosis without current pathological fracture Vitamin D 25-OH Total 6 Months E55.9 - Vitamin D deficiency, unspecified C Reactive Protein 6 Months Z79.899 - Other correction (current) drug therapy Erythrocyte Sedimentation Rate 6 Months Z79.899 - Other terminal make up operator (current) drug therapy AMB Joint Injection/Aspiration Today M17.0 - Bilateral primary osteoarthritis of knee Complete Blood Count Auto Diff 6 Months Z79.899 - Other terminal make up operator (current) drug therapy Comprehensive Met. Panel 6 Months Z79.899 - Other correction (current) drug therapy Hepatitis B,C Profile 6 Months Z79.899 - Other correction (current) drug therapy Medications: Changed From gabapentin 100 mg PO BEDTIME 90 caps 1RF M15.9 - Polyosteoarthritis, unspecified To gabapentin 300 mg PO BEDTIME 90 caps 1RF M15.9 - Polyosteoarthritis, unspecified Coding Level of Care Code Est Pt Level 4 (04936) Complex EM visit Add On G2211 Diagnoses Seropositive rheumatoid arthritis of multiple joints M05.79 Polyarticular osteoarthritis M15.9 Screening for osteoporosis Z13.820 Encounter for monitoring golimumab therapy Z51.81; Z79.620 CPT Codes Coding - 88711 Large joint: 54615 - Large joint ([id number]) Coding - 77921 Large joint: 28533 - Large joint ([id number])
[2025-02-23 09:09] VITALS: BP 142/80; PULSE 69; O2SAT 95; BMI 32.1
--- OUTSIDE RECORDS SUMMARY | 2025-02-23 10:13 | XMS_ITS | Patient Health Record ---
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 Name Role Phone Clara Nelson Primary Care Provider UnavailDeidra Padilla Unavailable [phone] Allergies Allergen (clinical drug ingredient) Drug/Non Drug [...] Referring Provider Last Name Omar [facility] Referred Provider Deidra Almodovar Referred Address [address] [place], [place],[address], Referred Provider Specialty Podiatry Referral Priority Routine [...] Polyneuropathy due to type 2 diabetes mellitus ([id number]) Type 2 diabetes mellitus with diabetic polyneuropathy (E11.42) Active confirmed Vital Signs Blood pressure diastolic 80 mm Hg 01/05/2025 Height 5ft 6in in 01/05/2025 Blood pressure systolic 130 mm Hg 01/05/2025 Weight 178 lbs 01/05/2025 BMI 28.73 kg/m2 01/05/2025 Procedures Procedure Date Ordered Date Performed Result Body Sit e 85312 I&D ABSCESS- SIMPLE,SINGLE 03/10/2024 N/A 29246-PRBI SKIN LESIONS, 2 TO 4 03/10/2024 N/A F0038-YAOYTRSV DYSTROPHIC NAILS ANY # 03/10/2024 N/A 64551-KIUY SKIN LESIONS, 2 TO 4 06/26/2024 N/A I1189-XBNSVUYE DYSTROPHIC NAILS ANY # 06/26/2024 N/A 81832-Fvqiegcr Plate 09/25/2024 N/A 78416-TOLJ SKIN LESIONS, 2 TO 4 09/25/2024 N/A Z7628-MDCBQLDA DYSTROPHIC NAILS ANY # 09/25/2024 N/A 04096-Wwbtjmgy Plate 01/05/2025 N/A 15738-CQFB SKIN LESIONS, 2 TO 4 01/05/2025 N/A J4616-SZLTJNXJ DYSTROPHIC NAILS ANY # 01/05/2025 N/A Encounters Encounter Location Date Provider Diagnosis [address] [address] 03/10/2024 Deidra Almodovar Type 2 diabetes mellitus with diabetic polyneuropathy E11.42 ; Tinea unguium B35.1 ; Muscle cramp, nocturnal R25.2 and Abscess of toe, left L02.[address] [address] 06/26/2024 Deidrakassandra Almodovar Type 2 diabetes mellitus with diabetic polyneuropathy E11.42 ; Tinea unguium B35.1 ; Muscle cramp, nocturnal R25.2 ; Other hammer toe(s) (acquired), left foot M20.42 and Other hammer toe(s) (acquired), right foot M20.[address] [address] 09/25/2024 Deidra Almodovar Type 2 diabetes mellitus with diabetic polyneuropathy E11.42 ; Edema, lower extremity R60.0 ; Tinea unguium B35.1 ; Muscle cramp, nocturnal R25.2 and Ingrown nail L60.[address] [address] 01/05/2025 Deidralynne Almodovar Type 2 diabetes mellitus with diabetic polyneuropathy E11.42 ; Edema, lower extremity R60.0 ; Tinea unguium B35.1 and Ingrown nail L60.[address] [address] 09/25/2024 Deidra Almodovar Assessments Encounter Date Diagnosis [...] Treatment Pending Test Test Name Order Date 18019-WQYCEOY NAIL, 6 OR MORE 08/16/2023 60655-XXIKGSX NAIL, 6 OR MORE 11/15/2023 54455-Skjgxoor Plate 09/25/2024 11114-Tvdkcqke Plate 01/05/2025 70945 I&D ABSCESS- SIMPLE,SINGLE 024 31235-IDTZ SKIN LESIONS, 2 TO 4 06/26/19 25 55309-BBHL SKIN LESIONS, 2 TO 4 03/10/20 24 34370-ICUL SKIN LESIONS, 2 TO 4 11/15/19 24 22484-FMAR SKIN LESIONS, 2 TO 4 09/26/19 25 98812-ROBX SKIN LESIONS, 2 TO 4 01/06/20 25 94579-BTOI SKIN LESIONS, 2 TO 4 08/16/19 24 O2222-JWANSASJ DYSTROPHIC NAILS ANY # O9510-JTAXGPOJ DYSTROPHIC NAILS ANY # M7958-LKFDKRSJ DYSTROPHIC NAILS ANY # R7449-RXTXQQYY DYSTROPHIC NAILS ANY # Next Appt Details Provider Name:Deidra lAmodovar , 04/16/2025 08:15:00 AM, [address] [place], [address], Insurance Providers Payer Name Payer Address Payer Phone Subscriber Number Group Number Insured Name Patient Relationship to Insured Coverage Start Date Coverage End Date [facility] [address] [place] [phone] [id number] Tiffany Ruelas Self - patient is the insured Medical (General) History Medical History History ICD Code Back,Hip,and Knee pain Diabetic High blood pressure Rheumatic fever thyroid Measles Mumps Chicken pox Joint implants/screws Cancer Surgical History Surgery Date(Month/Year) hysterectomy appendectomy back surgery colonoscopy wisdom teeth extraction Tooth extraction lung surgery 08/21/23
--- OUTSIDE RECORDS SUMMARY | 2025-02-23 10:13 | XMS_ITS | Clinical Summary ---
Author Organization [facility] Address [address] [place] [address] Phone Care Team Providers Care Vp Informatics Name Role Phone Clara Nelson MD Primary Care Provider [phone] Allergies Active Allergy Reactions Criticality Noted Date [...] per patient. stated had hysterectomy Rheumatoid arthritis ([facility] V24, [facility] V28) Pure hypercholesterolemia OA (osteoarthritis) of hip Overview (08/27/2024): : S/p MRI 08/05/2017 No fractures, effusion or bony destructive lesions. Consistent with moderate DJD. Repeat MRI 02/[address] 06/2018 with moderate DJD and loose body. Follows with Dr Edge SLE (systemic lupus erythema tosus) ([facility] V24, [facility] V28) Lumbar stenosis Overview (08/27/2024): S/p CT with moderate central stenosis and bilateral foraminal narrowing at L4-L5 s/p corticosteroid injections with physiatry. S/p hemilaminectomy 11/2017 Hypothyroidism Resolved Problems Problem Noted Date Diagnosed Date Resolved Date Elevated hematocrit 07/29/2022 08/28/19 25 Arthritis of right hip 07/09/201808/27 Encounters Date Type Department Care Team Description 02/09/2025 Telephone Lung Screening Program - [address] [place] [phone] Cyndee De [place] 12/17/2024 Telephone [facility] [address] [facility] [address] [place] [phone] Jorge Morales MD 12/09/2024 2:30 PM EDT Office Visit Adult Medicine [address] [phone] Aurelia Sharma PA Pedal edema (Primary Dx) [...] 12/29/2004 COPD (chronic obstructive pu lmonary disease) ([facility] V24, [facility] V28) 12/05/2017 On cxr 12/03/2017 Lumbar [...] Labor Labor/2nd/3rd Weight Sex Type Anes PTL Shviani A1 A5 Name Clin Term Last Filed [...] Info) Description 03/06/2025 8:00 AM EDT Appointment [facility] CT Scan [address] [place] [phone] 03/10/2025 9:30 AM EDT Office Visit Thoracic Surgery - [place] [address] [facility] [address] [place] [phone] Liane Quiros, AMELIA [address] [place] [phone] 03/23/2025 9:00 AM EDT Office Visit [facility] Hematology Oncology [address] [place] [phone] Marco Hunter MD [address] [place] [phone] 03/23/2025 11:10 AM EDT Office Visit [facility] - [facility] [address] [place] [address] [place] [phone] Aurelia Hart NP [address] [place] [address] Dr [place] [address] [place] [phone] 04/07/2025 8:15 AM EDT Office Visit Adult Medicine [facility] - [address] [phone] Clara Nelson MD [address] [place] [address] 10/19/2025 8:00 AM EDT Appointment Radiology Department - [address] [phone] Health Maintenance Due Date Last Done Comments [...] type, unspecified whether angina present, unspecified whether mi'kmaq or transplanted heart MG MAMMO DIGITAL SCREENING [...] ult [facility] [address] [place] [address], [place] [phone] * MG Mammo Digital Screening w Lion bilat (10/14/2024 8:05 AM EDT) Anatomical Region Laterality Modality Breast Bilateral Mammography 10/14/2024 6:31 PM EDT Impressions 10/14/2024 6:39 PM EDT 1. No mammographic evidence of malignancy 2. Scattered fibroglandular tissue BI-RADS CATEGORY: 2 - BENIGN RECOMMENDATION: Screening bilateral mammogram is recommended in 1 year. Mammo Location: [facility], [address] [place] [address], [address], . -------- FINAL REPORT -------- Dictated By: Vic Fairbanks Dictated Date: 10/14/2024 18:31 ET Assigned Physician: Vic Fairbanks Reviewed and Electronically Signed By: Vic Fairbanks Signed Date: 10/14/2024 18:39 ET Workstation ID: [id number] Transcribed By: Self Edit Transcribed Date: 10/14/2024 [...] is recommended in 1 year. Mammo Location: [facility], [address] [place] [address], [address], . -------- FINAL REPORT -------- Dictated By: Vic Fairbanks Dictated Date: 10/14/2024 18:31 ET Assigned Physician: Vic Fairbanks Reviewed and Electronically Signed By: Vic Fairbanks Signed Date: 10/14/2024 18:39 ET Workstation ID: [id number] Transcribed By: Self Edit Transcribed Date: 10/14/2024 18:31 ET Clara Nelson MD IMG BI PROCEDURES Final Result * (ABNORMAL) Basic metabolic panel (09/05/2024 9:13 AM EDT) Sodium 141 133 - 145 mmol/L LAB CHEMISTRY METHOD 09/05/2024 2:53 PM [facility] Potassium 4.9 3.5 - 5.5 mmol/L LAB CHEMISTRY METHOD 09/05/2024 2:53 PM [facility] Chloride 109 96 - 110 mmol/L LAB CHEMISTRY METHOD 09/05/2024 2:53 PM [facility] CO2 26 21 - 32 mmol/L LAB CHEMISTRY METHOD 09/05/2024 2:53 PM [facility] Anion Gap 6 3 - 11 LAB CHEMISTRY METHOD 09/05/2024 2:53 PM [facility] Glucose 127(H) 70 - 100 mg/dL LAB CHEMISTRY METHOD 09/05/2024 2:53 PM [facility] BUN 34(H) 5 - 25 mg/dL LAB CHEMISTRY METHOD 09/05/2024 2:53 PM [facility] Creatinine 1.18(H) 0.50 - 1.10 mg/dL LAB CHEMISTRY METHOD 09/05/2024 2:53 PM [facility] eGFR 48(L) >=60 mL/min/1. 73m2 LAB CHEMISTRY METHOD 09/05/2024 2:53 PM [facility] Comment:Calculation based on the Chronic Kidney Disease Epidemiology Collaboration (CKD-EPI) equation refit without adjustment for race. BUN/Creatinine Ratio 28.8 LAB CHEMISTRY METHOD 09/05/2024 2:53 PM [facility] Calcium 9.5 8.5 - 10.5 mg/dL LAB CHEMISTRY METHOD 09/05/2024 2:53 PM [facility] Blood Venous blood specimen / Unknown Venipuncture / Unknown 09/05/2024 9:13 AM EDT 09/05/2024 9:13 AM EDT us Clara Nelson MD LAB BLOOD ORDERABLES Final Resul t [facility] [address] [place] [address], * CT LUNG SCREENING LOW DOSE (03/14/2023 1:48 PM EDT) Anatomical Region Laterality Modality Computed Tomogra phy 03/14/2023 8:59 AM EDT Narrative 03/14/2023 1:48 PM EDT [facility] Diagnostic Imaging Department [address] [place] [address] Patient: HERNANDO RUELAS /Age/Sex: 1950 - 72 - F Unit#: [id number] Location/Status: [facility]/AL CLI Mnemonic/Ordering Site: [facility] Ordering Physician: JADE PEREZ MD CT Lung Screening Low Dose - 03/14/23908 Report Status:Signed History: 72 year-old 58 pack-year current smoker, asymptomatic, for lung cancer screening Comparison: 03/13/2022 Technique: Helical volumetric imaging of the thorax was performed, using low- dose technique, without IV contrast. DLP: 166.46 mGy/cm CTDIvol: 4.83 mGy Veoh VCT Iterative reconstruction technique Findings: Chest: There [...] suggestive of an inflammatory or infectious process. [id number] [id number] G9557 G9551 Dictating Physician: RUKHSANA SAARVIA MD Electronically Signed by: RUKHSANA SARAVIA MD Dic Date/Time: 03/14/23 1335 Sign date/Time: 03/14/23 1348 Procedure Note Rukhsana Saravia MD - 07/24/2023 [facility] Diagnostic Imaging Department [address] [place] [id number] Patient: HERNANDO RUELAS /Age/Sex: 1950 - 72 - F Unit#: [id number] Location/Status: [facility]/REG CLI Mnemonic/Ordering Site: [facility] Ordering Physician: JADE PEREZ MD CT Lung Screening Low Dose - 03/14/23 - 908 Report Status:Signed History: 72 year-old 58 pack-year current smoker, asymptomatic, for lungcancer screening Comparison: 03/13/2022 Technique: Helical volumetric imaging of the thorax was performed, usinglow- dose technique, without IV contrast. DLP: 166.46 mGy/cm CTDIvol: 4.83 mGy QgivT Iterative reconstruction technique Findings: Chest: There is [...] Findings suggestive of an inflammatory orinfectious process. 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
--- OUTSIDE RECORDS SUMMARY | 2025-02-23 10:13 | XMS_ITS | Clinical Summary ---
Author Organization [facility] Address [address] [place] [address] Care Team Providers Care Plant Taxonomist Name Role Phone Clara Nelson MD Primary Care Provider [phone] Allergies Active Allergy Reactions Criticality Noted Date [...] age to complete this topic Care Teams Plant Taxonomist Relationship Specialty Start Date End Date Clara Nelson MD PCP - General Internal Medicine 07/06/21
== END 2025-02-23 09:50 | disposition home or self-care (01) ==
LOC: HO.RHES 09:02
PROVIDERS: PCP Internal Medicine; Visit Provider Student in an Organized Health Care Education/Training Program
DX: M05.79 Rheumatoid arthritis with rheumatoid factor of multiple sites without organ or systems involvement (principal); M17.0 Bilateral primary osteoarthritis of knee; M15.9 Polyosteoarthritis, unspecified; Z13.820 Encounter for screening for osteoporosis; Z51.81 Encounter for therapeutic drug level monitoring; Z79.620 Long term (current) use of immunosuppressive biologic
CPT/HCPCS: 20610; 99214

== ENCOUNTER → 2025-02-23 09:02 | Outpatient (BNVA) | payer OTHER, SELFPAY | PROVIDERS: PCP Internal Medicine; Visit Provider Student in an Organized Health Care Education/Training Program | DX: M17.0 Bilateral primary osteoarthritis of knee (principal); M05.79 Rheumatoid arthritis with rheumatoid factor of multiple sites without organ or systems involvement; Z13.820 Encounter for screening for osteoporosis; Z51.81 Encounter for therapeutic drug level monitoring; Z79.620 Long term (current) use of immunosuppressive biologic | CPT/HCPCS: 20610; 99212; J2003; J3301 ==

== ENCOUNTER → 2025-04-06 08:45 | Outpatient (BNV) | payer OTHER, SELFPAY | PROVIDERS: PCP Internal Medicine; Visit Provider Radiology Diagnostic Radiology | DX: E28.39 Other primary ovarian failure (principal) | CPT/HCPCS: 77080 ==

== ENCOUNTER 2025-04-06 08:57 | Outpatient (REF) | payer OTHER, SELFPAY ==
--- OUTSIDE RECORDS SUMMARY | 2024-03-19 09:43 | XMS_ITS | Encounter Summary ---
Author Organization [facility] [place] [address] Care Team Providers Care Department Of Natural Resources Officer Name Role Phone Clara Nelson MD Primary Care Provider [phone] Encounter Details Date Type Department Care Team (Late st Contact Info) Description 03/19/2024 9:43 AM EDT Hospital Encounter TH HISTORIC ENCOUNTERS EASTERN CONVERSION ONLY Marco Hunter MD [address] [place] [phone] Social History Tobacco Use Types Packs/Day Years Used Date Smoking Tobacco: Former Cigarettes 1.5 59.2 0 06/18/1964 - 08/21/2023 Smokeless Tobacco: Never Alcohol Use Standard Drinks/Week Comments Yes 1 (1 standard drink = 0.6 oz pur e alcohol) Comments Unknown Sex and Gender Information Value Date Recorded Sex Assigned at Female 08/19/2024 11:35 AM EST Legal Sex Female 1:56 AM EST Gender Identity Female 08/19/2024 11:35 AM EST Sexual Orientation Not on file documented as of this encounter Last Filed Vital Signs Vital Sign Reading Time Taken Comments Blood Pressure 153/56 03/19/2024 9:45 AM EDT Sitting Right arm Pulse 67 03/19/2024 9:45 AM EDT Temperature - - Respiratory Rate - - Oxygen Saturation - - Inhaled Oxygen Concentration - - Weight 79.4 kg (175 lb) 03/19/2024 9:45 AM EDT Height 170.2 cm (5' 7 ) 03/19/2024 9:45 AM EDT Body Mass Index 27.41 03/19/2024 9:45 AM EDT documented in this encounter Progress Notes * Marco Hunter MD - 03/19/2024 9:45 AM EDT Images from the original note were not included. Progress Notes by Marco Hunter MD at 03/19/2024 9:45 AM Author: Marco Hunter MD Service: -- Author Type: Physician Filed: 03/19/2024 10:12 AM Encounter Date: 03/19/2024 Status: Addendum Position Classifier: Marco Hunter MD (Physician) Related Notes: Original Note by Marco Hunter MD (Physician) filed at 03/19/2024 10:06 AM Diagnosis/treatment: #1 Stage IB T2aN0 right upper lobe lung adenocarcinoma, PD-L1 TPS 95, KRAS G12C- mutated, diagnosed on 08/2023. The patient underwent a right upper lobectomy and mediastinal lymphadenectomy on 08/21/2023. ?? #2 Elevated hematocrit, macrocytosis. ?? Interval history: ?? The patient is a 73-year-old recently smoking female who is followed in our clinic for elevated hematocrit and macrocytosis. The patient has a history of rheumatoid arthritis and remains on weekly methotrexate therapy. She takes folic acid supplementation. She has a history of hypothyroidism, whichis well- compensated on levothyroxine replacement. ?? Laboratory data is as below: ? A CBC on 03/28/2022 showed WBC 7.6, hemoglobin 15.6, hematocrit 47.8, MCV 100, and platelet count 219,000. LFTs were normal. A creatinine was 1.2. A calcium was 10.2. A TSH was normal. A CBC on 11/16/2022 showed WBC 8.7, hemoglobin 14.2 with MCV 109, and platelet count 243,000. Immunoglobulin levels were normal. A serum immunofixation was negative. An SPEP showed no M spike. A serum kappa/lambda light chain ratio was normal at 1.2. A CBC on 05/23/2023 showed WBC 8.6, hemoglobin 15.5 with MCV 104, and platelet count 234,000. She quit smoking in 08/2023 at the time of her lung cancer surgery. A CBC on 03/07/2024 showed WBC 7.4, hemoglobin 13.5 with MCV 104, and platelet count 214,000. ?? She denies headaches or visual changes. She denies cough, hemoptysis, or dyspnea on exertion. She denies nausea or abdominal pain. She denies unusual bone pain. She reports an intact appetite and stable weight. ?? She started smoking at age 13 and smoked up to 3 packs a day. She quit in 08/2023. She drinks alcohol occasionally, about 4 drinks per month. ?? A low-dose screening chest CT on 03/13/2022 was unremarkable apart from small bilateral pulmonary nodules measuring up to 0.3 cm in the right upper lobe. A low-dose screening chest CT on 03/14/2023 showed an enlarging 0.3 cm right upper lobe nodule with adjacent pleural thickening. A follow-up chest CT without IV contrast on 06/16/2023 showed an enlarging 0.6 cm right upper lobe nodule and an enlarging 0.6 cm more superior right upper lobe nodule. She underwent a right upper lobectomy and mediastinal lymphadenectomy on 08/21/[address] Garrison andthe pathology revealed a 2.0 cm adenocarcinoma, 80% acinar type, 20% solid, [id number], [id number]. Visceral pleural invasion was focally present. LVI was not present. 0 of 3 parenchymal nodes;0 of 1 R4 nodes, 0 of 2 sump nodes, 0 of 2 right level 9 nodes; and 0 of 1 right level 10 nodes were involved with tumor. APD-L1 TPS was 95%. A KRAS G12 C mutation was detected. EGFR, BRAF, ALK, [id number] were not detected. She reports mild postthoracotomy pain, not requiring analgesics. A follow-up chest CT without IV contrast on 03/07/2024 was unremarkable. ?? Review of systems: ?? The remainder of a 10 point review of systems was unremarkable. ?? Physical examination: ?? HEENT: Sclerae anicteric, normal oropharyngeal membrane. Neck: No lymphadenopathy. Lungs: Clear to auscultation. Heart: No murmurs. Abdomen: Soft, nontender, no organomegaly or masses. Extremities: No edema. Skin: No rash. Neurologic: Normal gait. ?? Assessment/plan: ?? The patient is a 73-year-old previously smoking female who is followed in our clinic for elevated hematocrit and the macrocytosis. The hemoglobin has remained in the normal range and the elevated hematocrit is of uncertain significance. The patient's previous smoking likely contributed to a hemoglobin near the high end of normal and the elevated hematocrit. The hemoglobin has decreased since she quit smoking in 08/2023. The macrocytosis is likely secondary to methotrexate therapy. B12 and folatelevels were normal. The hypothyroidism is well compensated on levothyroxine. LFTs were normal. The patient does drink alcohol, which may contribute to macrocytosis. Given the macrocytosis and the mildly elevated creatinine in 03/2022, I ordered myeloma screening, which was unremarkable. She presented in 08/2023 with a stage IB T2aN0 right upper lobe lung adenocarcinoma, PD-L1 TPS 95, KRAS [id number]. The patient underwent a right upper lobectomy and mediastinal lymphadenectomy on 08/21/2023. Adjuvant chemotherapy and adjuvant immunotherapy are not indicated for stage IB T2a tumors. A surveillance chest CT in late 02/2024 was unremarkable. We will monitor surveillance chest CTs every 6 months. We will employ Keytruda upon systemic progression. documented in this encounter Plan of Treatment Upcoming Encounters Date Type Department Care Team (Late st Contact Info) Description 04/07/2025 8:15 AM EDT Office Visit Adult Medicine [facility] [address] [place], [place] [phone] Clara Nelson MD [address] [place] [address] 07/27/2025 9:10 AM EST Office Visit [facility] [address] [place] [address] [place] [phone] Tiffany Rodriguez NP [address] [place] [address] Dr [place] [address] [place] [phone] 09/21/2025 9:00 AM EDT Office Visit [facility] Hematology Oncology [address] [place] [phone] Marco Hunter MD [address] [place] [phone] 10/19/2025 8:00 AM EDT Appointment Radiology Department - [place] [address] [place] [address] documented as of this encounter Procedures Procedure Name Priority Date/Time Associated Diagnosis Comments ..MISCELLANEOUS REFERENCE LAB TEST 03/19/2024 EXTERNAL CLINICAL LAB 03/19/2024 documented in this encounter Results * External clinical lab (03/19/2024) us Provider Onbase MD LAB BLOOD ORDERABLES Final Re sult * Miscellaneous reference lab test (03/19/2024) us Provider Onbase MD LAB BLOOD ORDERABLES Final Re sult documented in this encounter Visit Diagnoses Not on filedocumented in this encounter Care Teams Department Of Natural Resources Officer Relationship Specialty Start Date End Date Clara Nelson MD [address] [place] [address] PCP - General Internal Medicine 04/25/21 documented as of this encounter
--- OUTSIDE RECORDS SUMMARY | 2025-04-01 08:00 | XMS_ITS | Encounter Summary ---
Author Organization [facility] Address [address] [place] [address] Care Team Providers Care Yard Warehouse Worker Name Role Phone Clara Nelson MD Primary Care Provider [phone] Reason for Visit * Reason Comments 30 day ROCT * Cardiac Stress Testing (Routine) - Closed Specialty Diagnoses / Procedures Referred By Contac t Referred To Contact Cardiology Diagnoses Atrial fibrillation, unspecified type (CMS/HCC V24, CMS/HCC V28) Procedures Cardiac event monitor Cardiac event monitor NE EXTERNAL PATIENT ACTIVATED ECG DOWNLOAD W RESULTS & INTERP <= 30 DAYS NE EXTERNAL PAT AUTO ACTIVATED ECG INCLUDING TRANSMISSION UP TO 30 DAYS NE EXTERNAL MOBILE CV TELEMETRY W ECG RECORDING <=30D PHYSCIAN REV & INTERP NE EXTERNAL MOBILE CV TELEMETRY W ECG RECORDING TECH SUPPORT UP TO 30 DAYS NE ECG UP TO 30 DAYS RECORDING Aurelia Hart NP [address] [place] [address] [place] [address] Phone: tel: fax: Referral ID Status Reason Start Date Expiration Date Visits Re quested Visits Authorized [id number] Closed 03/23/2025 03/23/2026 1 1 Encounter Details Date Type Department Care Team (Latest Contact Info) Description 04/01/2025 8:00 AM EDT Ancillary Procedure [facility] Associates - [address] [place] [phone] Atrial fibrillation, unspecified type (CMS/HCC V24, CMS/HCC V28) Social History Tobacco Use Types Packs/Day Years [...] on file documented as of this encounter Plan of Treatment Upcoming Encounters Date Type Department Care Team (Late st Contact Info) Description 04/07/2025 8:15 AM EDT Office Visit Adult Medicine [address] [phone] Clara Nelson MD [address] [place] [address] 07/27/2025 9:10 AM EST Office Visit [facility] - [facility] [address] [place] [address] [place] [address] [place] [phone] Tiffany Rodriguez NP [address] [place] [address] Dr [place] [address] [place] [phone] 09/21/2025 9:00 AM EDT Office Visit [facility] Hematology Oncology [address] [place] [phone] Marco Hunter MD [address] [place] [phone] 10/19/2025 8:00 AM EDT Appointment Radiology Department - [address] [phone] Pending Results Name Type Priority Associated Diagnoses Date /Time Cardiac event monitor Cardiac Services Routine Atrial fibrillation, unspecified type (CMS/HCC V24, CMS/HCC V28) 04/02/2025 6:23 AM EDT documented as of this encounter Visit Diagnoses Diagnosis Atrial fibrillation, unspecified type (CMS/HCC V24, CMS/HCC V28) documented in this encounter Care Teams Yard Warehouse Worker Relationship Specialty Start Date End Date Clara Nelson MD [address] [place] [address] PCP - General Internal Medicine 04/25/21 documented as of this encounter
--- NOTE | ~2025-04-06 | MM_ITS ---
EXAMINATION: DXA BONE DENSITY AXIAL HISTORY: M81.0 - Age-related osteoporosis without current pathological fracture TECHNIQUE: Gipis Dual energy absorptiometry (DEXA) of the lumbar spine, total left hip, and femoral neck was performed. COMPARISON: There are no prior studies for comparison. FINDINGS: The bone mineral density of the lumbar spine is 1.193 g/cm2, corresponding to a T-score of 0.2, and a Z-score of 1.2. This is indicative of normal bone mineral density. The bone mineral density of the left total hip is 0.883 g/cm2, corresponding to a T-score of -1.0, and a Z-score of 0.2. This is indicative of normal bone mineral density. The bone mineral density of the left femoral neck is 0.788 g/cm2, corresponding to a T-score of -1.8, and a Z-score of -0.4. This is indicative of osteopenia. FRACTURE RISK: The FRAX index suggests a risk of major osteoporotic fracture of 13.9%, and of hip fracture 5.1%. MM/XR DEXA axial skeleton IMPRESSION: Based on bone mineral density, and according to World Health Organization (WHO) criteria, the diagnosis is consistent with osteopenia. Statistically, 68% of repeat scans fall within 1 SD (+/- 0.010 g/cm2 for AP spine L1-L4) and 1 SD (+/- 0.012 g/cm2 for femur total) FRAX is a trademark of the [employer] [place] [facility] Met[employer] Bone Disease, a World Health Organization (WHO) Collaborating Center. Electronically signed by: Simba Bhatt MD 04/06/2025 09:41 AM EDT
--- OUTSIDE RECORDS SUMMARY | 2025-04-06 10:13 | XMS_ITS | Clinical Summary ---
Author Organization [facility] Address [address] [place] [address] Care Team Providers Care Body Trimmer Upholsterer Name Role Phone Clara Nelson MD Primary Care Provider [phone] Allergies Active Allergy Reactions Criticality Noted Date [...] age to complete this topic Care Teams Body Trimmer Upholsterer Relationship Specialty Start Date End Date Clara Nelson MD PCP - General Internal Medicine 07/06/21
--- OUTSIDE RECORDS SUMMARY | 2025-04-06 10:13 | XMS_ITS | Encounter Summary ---
Author Organization [facility] Address [address] [place] [address] Care Team Providers Care Lens Block Gauger Name Role Phone Clara Nelson MD Primary Care Provider [phone] Reason for Referral * Consultation (Routine) - Authorized Specialty Diagnoses / Procedures Referred By Contmelinda t Referred To Contact Cardiology Diagnoses CAD (coronary artery disease) Aurelia Sharma PA [address] [place] [address] Phone: tel: fax: [facility] [address] [facility] [address] [place] [address] Phone: tel: fax: Referral ID Status Reason Start Date Expiration Date Visits Requested Visits Authorized [id number] Authorized Specialty Services Required 03/09/2025 03/09/2026 6 6 Reason for Visit * Reason Onset Date Comments Referral 03/09/2025 Cardiology Insur jose Referral Encounter Details Date Type Department Care Team (Late st Contact Info) Description 03/09/2025 Telephone Adult Medicine [facility] [address] [place], [place] [phone] Clara Nelson MD [address] [place], [place] Social History Tobacco Use Types Packs/Day Years [...] as of this encounter Progress Notes * Jami Harden - 03/09/2025 10:17 AM EDT What insurance does the patient have today? Payor: [email or web address]@/@[email or web address]@ Referrals cannot be processed if the insurance is not accurate. If the insurance listed above is NO BILLING INFORMATION FOUND FOR THIS ENCOUNTER then the patients correct insurance must be obtainedand registered in [facility] or their referral can not be processed. Name of person calling to request this referral? Fax -Cat Referred To Provider (Include first and last name): JEANNINE NPI (if known): [phone] Order/Specialty requested cardiology Chief Complaint (Note: This is not a body part or a procedure): I25.10 CAD Has the patient seen provider for this problem/Dx before? Referred To Provider Address: [address] Referred To Provider Referred To Provider Does patient have an appointment scheduled?: yes If yes, what is the date of the appointment?: 03/23/25 Is this a retro request? no Number of visits requested: 6 Is this appointment related to: MVA or worker compensation? no documented in this encounter Plan of Treatment Upcoming Encounters Date Type Department Care Team (Late st Contact Info) Description 04/07/2025 8:15 AM EDT Office Visit Adult Medicine [facility] [address] [place], [place] [phone] Clara Nelson MD [address] [place], [place] 07/27/2025 9:10 AM EST Office Visit [facility] [address] [place] [address] [place] [address] Tiffany Rodriguez NP [address] [place] [address] Dr [address] [place] [address] 09/21/2025 9:00 AM EDT Office Visit [facility] Hematology Oncology [address] [place] [address] Marco Hunter MD [address] [place] [address] 10/19/2025 8:00 AM EDT Appointment Radiology Department [address] [phone] Scheduled Referrals Name Type Priority Associated Diagnoses Order Schedule Ambulatory referral to Cardiology Outpatient Referral Routine CAD (coronary artery disease) Expected: 03/09/2025, Expires: 03/09/2026 documented as of this encounter Visit Diagnoses Diagnosis CAD (coronary artery disease)- Primary Coronary atherosclerosis of unspecified type of vessel, nome or graft documented in this encounter Care Teams Lens Block Gauger Relationship Specialty Start Date End Date Clara Nelson MD [address] [place], [place] PCP - General Internal Medicine 04/25/21 documented as of this encounter
--- OUTSIDE RECORDS SUMMARY | 2025-04-06 10:13 | XMS_ITS | Clinical Summary ---
Author Organization [facility] Address [address] [place] [address] Phone Care Team Providers Care Driver Retraining Instructor Name Role Phone Clara Nelson MD Primary Care Provider [phone] Allergies Active Allergy Reactions Criticality Noted Date Comments Aspirin Nausea And Vomiting 03/15/2005 Linolenic Acid Diarrhea 01/16/2012 Methocarbamol Nausea And Vomiting 07/24/2008 Penicillins Swelling 03/15/2005 Medications fluticasone propionate (FLONASE) 50 mcg/actuation nasal spray spray or apply 100 mcg inside Nose. 6 Active folic acid (FOLVITE) 1 mg tablet Active multivitamin (MULTIPLE VITAMINS ORAL) Take by mouth. Active albuterol HFA (PROAIR HFA ; PROVENTIL HFA ; VENTOLIN HFA) 90 mcg/actuation inhaler Inhale 2 puffs by mouth every 6 (six) hours if needed for wheezing. 6.7 g 11 5 026 Active levothyroxine (SYNTHROID, LEVOTHROID) 125 mcg tablet TAKE 1 TABLET BY MOUTH ONCE A DAY BEFORE BREAKFAST 90 each 1 5 Active gabapentin (NEURONTIN) 100 mg capsule Take 1 capsule (100 mg total) by mouth. 5 Active furosemide (Lasix) 20 mg tablet Take 1 tablet (20 mg total) by mouth 1 (one) time each day for 3 days. 3 each 5 Active Additional Information Patient not taking.Reported on 03/23/2025 apixaban (Eliquis) 5 mg tablet TAKE 1 TABLET BY MOUTH TWO TIMES A DAY 90 tablet 3 5 Active lisinopriL (PRINIVIL,ZESTR IL) 10 mg tablet Take 1 tablet (10 mg total) by mouth at bedtime. 90 each 5 Active isosorbide mononitrate (IMDUR) 30 mg 24 hr tablet TAKE 1 TABLET BY MOUTH DAILY 90 tablet 5 Active Additional Information Patient not taking.Reported on 03/23/2025 atenoloL (TENORMIN) 50 mg tablet Take 1 tablet (50 mg total) by mouth 1 (one) time each day. Active simvastatin (ZOCOR) 20 mg tablet Take 1 tablet (20 mg total) by mouth at bedtime. Active golimumab (SIMPONI ARIA IV) Infuse into a venous catheter once every eight weeks. Active atenoloL (TENORMIN) 50 mg tablet TAKE 1/2 TABLET BY MOUTH DAILY 45 tablet 1 5 025 Discontin ued(Dose adjustmen t) simvastatin (ZOCOR) 40 mg tablet TAKE 1 TABLET BY MOUTH AT BEDTIME 90 tablet 3 5 025 Discontin ued(Dose adjustmen t) Active Problems Problem Noted Date Diagnosed Date Macrocytosis without anemia 03/23/2025 Primary adenocarcinoma of ri ght lung (CMS/HCC V24, CMS/HCC V28) 03/23/2025 Multiple pulmonary nodules 03/23/2025 History of lung cancer 08/27/2024 Assessment & Plan (03/23/2025 10:46 AM EDT): Ms. Ruelas is a 74 year old female who had a robotic right upper lobectomy for a stage 1b adenocarcinoma in August 2023. Adjuvant treatment was not recommended. Patient was recent surveillance chest CT scan done March 2025 shows no new or worsening pulmonary nodule, or thoracic adenopathy, to suggest recurrence or new disease. She has several stable pulmonary nodules the largest of which measures 6 mm in the left lower lobe. We will continue with routine chest CT surveillance the next of which will be in 6 months, end of August 2024 - as the patient wishes to have her follow-up appointment the same day as her medical oncology appointment which is September 21, 2025. Assessment & Plan (08/28/2024 10:18 AM EDT): [...] 03/13/2018 Overweight (BMI 25.0-29.9) 12/25/2017 Atrial fibrillation ([facility] V24, [facility] V28) Carpal tunnel syndrome COPD (chronic obstructive pu lmonary disease) ([facility] V24, [facility] V28) Overview (08/27/2024): On cxr 12/03/2017 Hypertension Hx of cervical cancer Overview (08/27/2024): : per patient. stated had hysterectomy Rheumatoid arthritis ([facility] V24, [facility] V28) Pure hypercholesterolemia OA (osteoarthritis) of hip Overview (08/27/2024): : S/p MRI 08/05/2017 No fractures, effusion or bony destructive lesions. Consistent with moderate DJD. Repeat MRI 02/[address] 06/2018 with moderate DJD and loose body. Follows with Dr Edge SLE (systemic lupus erythema tosus) ([facility] V24, [facility] V28) Lumbar stenosis Overview (08/27/2024): S/p CT with moderate central stenosis and bilateral foraminal narrowing at L4-L5 s/p corticosteroid injections with physiatry. S/p hemilaminectomy 11/2017 Hypothyroidism Resolved Problems Problem Noted Date Diagnosed Date Resolved Date Elevated hematocrit 07/29/2022 03/12/20 25 Arthritis of right hip 07/09/201808/27 Encounters Date Type Department Care Team Description 04/01/2025 8:00 AM EDT Ancillary Procedure [facility] Card[facility] [address] [facility] [address] [place] [phone] Atrial fibrillation, unspecified type (CMS/HCC V24, CMS/HCC V28) 03/23/2025 11:10 AM EDT Office Visit [facility] [address] [facility] [address] [place] [phone] Aurelia Hart NP Atrial fibrillation, unspecified type (CMS/HCC V24, CMS/HCC V28) (Primary Dx); Coronary artery disease, unspecified vessel or lesion type, unspecified whether angina present, unspecified whether [place] or transplanted heart; Primary hypertension; Pure hypercholesterolemia 03/23/2025 10:15 AM EDT Office Visit Thoracic Surgery - [place] [address] [facility] [address] [place] [phone] Marisa Ngo PA History of lung cancer (Primary Dx); Multiple pulmonary nodules 03/23/2025 9:00 AM EDT Office Visit [facility] Hematology Oncology [address] [place] [phone] Marco Hunter MD Macrocytosis without anemia (Primary Dx) 03/23/2025 Telephone [facility] [address] [place] [phone] Jorge Morales MD 03/18/2025 1:18 PM EDT - 03/18/2025 11:59 PM EDT Hospital Encounter [facility] CT Scan [address] [place] [phone] History of lung cancer Discharge Disposition: Home or Self Care 03/09/2025 Telephone Adult Medicine [address] [phone] Clara Nelson MD 02/09/2025 Telephone Lung Screening Program - [place] [address] [facility] [address] [place] [phone] Cyndee De [place] from Last 3 Months Immunizations Immunization Administration Dates Next Due H1N1 Inj Preservative Free 06/10/2009 Influenza Quadravalent, MDCK , 0.5ml, with preservative (Flucelvax) 6mo and older 04/16/2017 Influenza trivalent, 0.5mL ( Fluad) 65yo and older 03/07/2024 Influenza trivalent, 0.5mL ( Fluzone High-dose) 65yo and older 04/02/2023,03/02/2022,03/25/2021,04/08,03/28/2018 Influenza trivalent, with pr eservative (Fluzone; Afluria) 6mo and older 05/02/2016,03/27/2014,06/03/2013,04/24,06/07/2011,04/07/2010,03/17/2009 ,03/03/2008,03/18/2007,05/09/2006,06/2004 [employer] SARS-CoV-2 COVID-19, mRNA, LNP-S, preservative free 07/10/2021,09/16/2020,08/26/2020 Pneumococcal conjugate 13 va lent (Prevnar 13, PCV13) 2mo and older 04/16/2017 Pneumococcal polysaccharide 23 valent (Pneumovax 23) 2yo and older 02/19/2014,03/25/2003 RSV, bivalent, protein subun it RSVpreF, 0.5mL, Preservative Free (Arexvy) 50yo and older 03/20/2024 Td Tetanus diptheria (Tdvax) [...] 12/29/2004 COPD (chronic obstructive pu lmonary disease) ([facility] V24, [place] V28) 12/05/2017 On cxr 12/03/2017 Lumbar stenosis [...] elvi ent. stated had hysterectomy Atrial fibrillation ([facility] V24, [place] V28) 09/04/2023 Rheumatoid arthritis ([facility] V24, [place] V28) Lupus History of lung cancer 08/27/2024 [...] Sign Reading Time Taken Comments Blood Pressure 138/70 03/23/2025 11:05 AM EDT Pulse 70 03/23/2025 11:05 AM EDT Temperature 36.5 C (97.7 F) 03/23/2025 10:09 AM EDT Respiratory Rate 16 03/23/2025 10:09 AM EDT Oxygen Saturation 99% 03/23/2025 11:05 AM EDT Inhaled Oxygen Concentration - - Weight 90 kg (198 lb 8 oz) 03/23/2025 11:05 AM E DT Height 168.9 cm (5' 6.5 ) 03/23/2025 11:05 AM ED T Body Mass Index 31.56 03/23/2025 11:05 AM EDT Plan of Treatment Upcoming Encounters Date Type Department Care Team (Late st Contact Info) Description 04/07/2025 8:15 AM EDT Office Visit Adult Medicine [address] [phone] Clara Nelson MD [address] [place] [phone] 07/27/2025 9:10 AM EST Office Visit [facility] [address] [place] [address] [place] [phone] Tiffany Rodriguez NP [address] [place] [address] Dr [place] [address] [place] [phone] 09/21/2025 9:00 AM EDT Office Visit [facility] Hematology Oncology [address] [place] [phone] Marco Hunter MD [address] [place] [phone] 10/19/2025 8:00 AM EDT Appointment Radiology Department [address] [phone] Health Maintenance Due Date Last Done Comments Diabetes: Annual Foot Exam 1960 Diabetes: Annual Retina Eye Exam 1960 Falls Risk Assessment 05/25/2022 Hepatitis C Screening 05/25/2022 Medicare Annual Wellness Visit 05/25/2022 Osteoporosis Screening (Bone Density Screening) 05/25/2022 Social Influencers of Health Screening 05/25/2022 Lung Cancer Screening (Low Dose CT) 03/14/2024 03/14/2023, 03/13/2022 Depression Screening 06/18/2024 COVID-19 Vaccine (6 - Pfizer risk season) 2025 03/20/2024, 03/23/2023, 07/10/2021, Additional history exists Influenza Vaccine (#1) 2025 , 02/17/2024, 04/02/2023, Additional history exists Diabetes: Annual Urine Albumin-Creatinine Ratio (uACR) 04/02/2025 Diabetes: Blood Sugar Control Test (HGBA1C) 04/02/2025 03/07/2024 Diabetes: Annual GFR (Glomerular Filtration Rate) 09/05/2025 09/05/2024, 02/28/2024, 01/17/2024, Additional history exists Hypertension/CHF/CAD Annual BMP Blood [...] Procedure Name Priority Date/Time Associated Diagnosis Comments ECG 12-LEAD Routine 03/23/2025 12:25 PM EDT Atrial fibrillation, unspecified type (CMS/HCC V24, CMS/HCC V28) CBC WITH AUTO DIFFERENTIAL Routine 03/19/2025 10:03 AM EDT Macrocytosis CBC AND DIFFERENTIAL Routine 03/19/2025 10:[address] CHEST WO CONTRAST Routine 03/18/2025 1:37 PM EDT History of lung cancer EXTERNAL COLONOSCOPY REPORT Routine 11/12/2024 2:04 PM EDT LIPID PANEL WITH REFLEX TO DIRECT LDL Routine 10/23/2024 9:58 AM EDT Coronary artery disease, unspecified vessel or lesion type, unspecified whether angina present, unspecified whether [place] or transplanted heart MG MAMMO DIGITAL SCREENING W LION BILAT Routine 10/14/2024 8:05 AM EDT Encounter for screening mammogram for breast cancer BASIC METABOLIC PANEL Routine 09/05/2024 9:13 AM EDT Primary hypertension CT LUNG SCREENING LOW DOSE Routine 03/14/2023 1:48 PM EDT Personal history of nicotine dependence from Last 3 Months or Most Recently Relevant to Health Maintenance Results * ECG 12 lead (03/23/2025 12:25 PM EDT) 03/23/2025 11:2 1 AM EDT us Aurelia Hart NP ECG ORDERABLES Final Result GEMUSE * (ABNORMAL) CBC auto differential (03/19/2025 10:03 AM EDT) WBC 9.4 4.8 - 10.8 K/mcL LAB HEMETOLOGY METHOD 03/19[facility]2025 [facility] RBC 4.20 3.80 - 4.80 M/mcL LAB HEMETOLOGY METHOD 03/19/2025 12:22 PM [facility] Hemoglobin 13.8 11.5 - 16.0 g/dL LAB HEMETOLOGY METHOD 03/19/2025 12:22 PM [facility] Hematocrit 44.5 35.0 - 47.0 % LAB HEMETOLOGY METHOD 03/19/2025 12:22 PM [facility] MCV 106.0(H) 79.0 - 98.0 FL LAB HEMETOLOGY METHOD 03/19/2025 12:22 PM [facility] MCH 32.9(H) 27.0 - 32.0 pcg LAB HEMETOLOGY METHOD 03/19/2025 12:22 PM [facility] MCHC 31.0(L) 32.0 - 37.0 g/dL LAB HEMETOLOGY METHOD 03/19/2025 12:22 PM [facility] RDW 13.2 11.0 - 15.0 % LAB HEMETOLOGY METHOD 03/19/2025 12:22 PM [facility] Platelets 188 130 - 400 K/mcL LAB HEMETOLOGY METHOD 03/19/2025 12:22 PM [facility] MPV 11.5(H) 7.0 - 11.0 FL LAB HEMETOLOGY METHOD 03/19/2025 12:22 PM [facility] NRBC 0.0 <1.0 % LAB HEMETOLOGY METHOD 03/19/2025 12:22 PM [facility] NRBC Absolute 0.00 <0.10 K/mcL LAB HEMETOLOGY METHOD 03/19/2025 12:22 PM [facility] Neutrophils Relative 59.2 % LAB HEMETOLOGY METHOD 03/19/2025 12:22 PM [facility] Lymphocytes Relative 26.6 % LAB HEMETOLOGY METHOD 03/19/2025 12:22 PM [facility] Monocytes Relative 10.1 % LAB HEMETOLOGY METHOD 03/19/2025 12:22 PM [facility] Eosinophils Relative 2.7 % LAB HEMETOLOGY METHOD 03/19/2025 12:22 PM [facility] Basophils Relative 1.0 % LAB HEMETOLOGY METHOD 03/19/2025 12:22 PM [facility] Immature Granulocytes Relative 0.4 % LAB HEMETOLOGY METHOD 03/19/2025 12:22 PM [facility] Neutrophils Absolute 5.55 1.50 - 7.00 K/mcL LAB HEMETOLOGY METHOD 03/19/2025 12:22 PM [facility] Lymphocytes Absolute 2.49 1.00 - 5.00 K/mcL LAB HEMETOLOGY METHOD 03/19/2025 12:22 PM [facility] Monocytes Absolute 0.95 0.20 - 1.00 K/mcL LAB HEMETOLOGY METHOD 03/19/2025 12:22 PM [facility] Eosinophils Absolute 0.25 0.00 - 0.50 K/mcL LAB HEMETOLOGY METHOD 03/19/2025 12:22 PM [facility] Basophils Absolute 0.09 0.00 - 0.20 K/[facility] LAB HEMETOLOGY METHOD 03/19/2025 12:22 PM EDT [facility] Immature Granulocytes Absolute 0.04(H) 0.00 - 0.03 K/[facility] LAB HEMETOLOGY METHOD 03/19/2025 12:22 PM EDT [facility] Blood Venous blood specimen / Unknown Venipuncture / Unknown 03/19/2025 10:03 AM EDT 03/19/2025 10:03 AM EDT us Marco Hunter MD LAB BLOOD ORDERABLES Final Result [facility] [address] [place] [address], [place] [phone] * CT Chest wo Contrast (03/18/2025 1:37 PM EDT) Anatomical Region Laterality Modality Body Computed Tomogra phy 03/23/2025 9:23 AM EDT Impressions 03/23/2025 9:36 AM EDT Impression: 1. Stable right upper lobectomy sequela. 2. No suspicious developing pulmonary nodule or thoracic lymphadenopathy. No significant change. [place] ([id number]) -------- FINAL REPORT -------- Dictated By: Monique Snyder Dictated Date: 03/23/2025 09:23 ET Assigned Physician: Monique Snyder Reviewed and Electronically Signed By: Monique Snyder Signed Date: 03/23/2025 09:36 ET Workstation ID: [id number] Transcribed By: Self Edit Transcribed Date: 03/23/2025 09:23 ET Narrative 03/23/2025 9:36 AM EDT History: Lung carcinoma. Surveillance imaging. Status post robotic right upper lobectomy in August, for stage IB invasive adenocarcinoma. Comparison: 08/20/24 Technique: Helical volumetric imaging of the thorax was performed without IV contrast. DLP: 747.87 mGy/cm OfferIQ VCT Iterative reconstruction technique Findings: Right upper lobectomy sequela are again seen. Minimal foamy debris is seen within the mid trachea, consistent with mucus. The remaining central bronchial tree is patent. There is patchy centrilobular emphysema. Thick curvilinear juxtapleural opacity is again seen at the anterolateral base of the right lower lobe, without significant change, most likely scarring. Juxta mediastinal opacity at the base of the lingula most likely represents atelectasis. A 6 mm solid, noncalcified nodule in the left lower lobe is unchanged, reported previously. A 2 mm solid, noncalcified left lower lobe nodule (image 175) is also unchanged no suspicious developing nodule is seen. No pleural or pericardial effusions are identified. The heart remains normal in size. Severe atherosclerotic calcification of the thoracic aorta and coronary arteries is again seen. No mediastinal or hilar lymphadenopathy is identified. A small portion of the upper abdomen included on the lowest images through the thorax is remarkable for a stable 3 mm hypoattenuating lesion in the left lobe of the liver, too small to fully characterize, most likely a cyst. A 13 mm right adrenal adenoma and a 12 mm left adrenal adenoma are unchanged. Diverticulosis of the partially imaged colon is noted. No significant osseous lesion is seen. Procedure Note Monique Snyder MD - 03/23/2025 History: Lung carcinoma. Surveillance imaging. Status post robotic rightupper lobectomy in August, for stage IB invasive adenocarcinoma. Comparison: 08/20/24 Technique: Helical volumetric imaging of the thorax was performed withoutIV contrast. DLP: 747.87 mGy/cm GoblinworkspeciValue VCT Iterative reconstruction technique Findings: Right upper lobectomy sequela are again seen. Minimal foamy debris is seenwithin the mid trachea, consistent with mucus. The remaining centralbronchial tree is patent. There is patchy centrilobular emphysema. Thickcurvilinear juxtapleural opacity is again seen at the anterolateral baseof the right lower lobe, without significant change, most likely scarring.Juxta mediastinal opacity at the base of the lingula most likelyrepresents atelectasis. A 6 mm solid, noncalcified nodule in the left lower lobe is unchanged,reported previously. A 2 mm solid, noncalcified left lower lobe nodule(image 175) is also unchanged no suspicious developing nodule is seen. No pleural or pericardial effusions are identified. The heart remains normal in size. Severe atherosclerotic calcification ofthe thoracic aorta and coronary arteries is again seen. No mediastinal orhilar lymphadenopathy is identified. A small portion of the upper abdomen included on the lowest images throughthe thorax is remarkable for a stable 3 mm hypoattenuating lesion in theleft lobe of the liver, too small to fully characterize, most likely acyst. A 13 mm right adrenal adenoma and a 12 mm left adrenal adenoma areunchanged. Diverticulosis of the partially imaged colon is noted. No significant osseous lesion is seen. IMPRESSION: Impression: 1. Stable right upper lobectomy sequela. 2. No suspicious developing pulmonary nodule or thoraciclymphadenopathy. No significant change. Telepadmini KIM ([id number]) -------- FINAL REPORT -------- Dictated By: Monique Snyder Dictated Date: 03/23/2025 09:23 ET Assigned Physician: Monique Snyder Reviewed and Electronically Signed By: Monique Snyder Signed Date: 03/23/2025 09:36 ET Workstation ID: [id number] Transcribed By: Self Edit Transcribed Date: 03/23/2025 09:[address] IM[address] CT PROCEDURES Final Resul t * External Colonoscopy Report (11/12/2024 2:04 PM EDT) Anatomical Region Laterality Modality Endoscopy Historical Provider GI~PROCEDURE ORDERABLES F inal Result * (ABNORMAL) Lipid panel with reflex to direct LDL (10/23/2024 9:58 AM EDT) Cholesterol 190 0 - 200 mg/dL LAB CHEMISTRY METHOD 10/23/2024 1:56 PM EDT [facility] Triglycerides 180(H) 0 - 150 mg/dL LAB CHEMISTRY METHOD 10/23/2024 1:56 PM EDT [facility] HDL 57 >=40 mg/dL LAB CHEMISTRY METHOD 10/23/2024 1:56 PM EDT [facility] LDL Calculated 97 0 - 100 mg/dL LAB CHEMISTRY METHOD 10/23/2024 1:56 PM EDT [facility] VLDL Cholesterol Moy 36 mg/dL LAB CHEMISTRY METHOD 10/23/2024 1:56 PM EDT [facility] Non HDL Chol. (LDL+VLDL) 133 <145 mg/dL LAB CHEMISTRY METHOD 10/23/2024 1:56 PM EDT [facility] Chol/HDL Ratio 3.3 0.0 - 4.4 LAB CHEMISTRY METHOD 10/23/2024 1:56 PM EDT [facility] Blood Venous blood specimen / Unknown Venipuncture / Unknown 10/23/2024 9:58 AM EDT 10/23/2024 9:59 AM EDT us Aurelia Hart METER ENGINEER LAB BLOOD ORDERABLES Final Res ult [facility] [address] [place] [address], * MG Mammo Digital Screening w Lion bilat (10/14/2024 8:05 AM EDT) Anatomical Region Laterality Modality Breast Bilateral Mammography 10/14/2024 6:31 PM EDT Impressions 10/14/2024 6:39 PM EDT 1. No mammographic evidence of malignancy 2. Scattered fibroglandular tissue BI-RADS CATEGORY: 2 - BENIGN RECOMMENDATION: Screening bilateral mammogram is recommended in 1 year. Mammo Location: [facility], [address] [place] [address], [id number], . -------- FINAL REPORT -------- Dictated By: Vic Fairbanks Dictated Date: 10/14/2024 18:31 ET Assigned Physician: Vic Fairbanks Reviewed and Electronically Signed By: Vic Fairbanks Signed Date: 10/14/2024 18:39 ET Workstation ID: [id number] Transcribed By: Self Edit Transcribed Date: 10/14/2024 [...] is recommended in 1 year. Mammo Location: [facility], [address] [place] [address], [phone], . -------- FINAL REPORT -------- Dictated By: Vic Fairbanks Dictated Date: 10/14/2024 18:31 ET Assigned Physician: Vic Fairbanks Reviewed and Electronically Signed By: Vic Fairbanks Signed Date: 10/14/2024 18:39 ET Workstation ID: [id number] Transcribed By: Self Edit Transcribed Date: 10/14/2024 18:31 ET us Clara Nelson MD IM BI PROCEDURES Final Result * (ABNORMAL) Basic metabolic panel (09/05/2024 9:13 AM EDT) Sodium 141 133 - 145 mmol/L LAB CHEMISTRY METHOD 09/05/2024 2:53 PM [facility] Potassium 4.9 3.5 - 5.5 mmol/L LAB CHEMISTRY METHOD 09/05/2024 2:53 PM [facility] Chloride 109 96 - 110 mmol/L LAB CHEMISTRY METHOD 09/05/2024 2:53 PM [facility] CO2 26 21 - 32 mmol/L LAB CHEMISTRY METHOD 09/05/2024 2:53 PM [facility] Anion Gap 6 3 - 11 LAB CHEMISTRY METHOD 09/05/2024 2:53 PM [facility] Glucose 127(H) 70 - 100 mg/dL LAB CHEMISTRY METHOD 09/05/2024 2:53 PM [facility] BUN 34(H) 5 - 25 mg/dL LAB CHEMISTRY METHOD 09/05/2024 2:53 PM [facility] Creatinine 1.18(H) 0.50 - 1.10 mg/dL LAB CHEMISTRY METHOD 09/05/2024 2:53 PM [facility] eGFR 48(L) >=60 mL/min/1. 73m2 LAB CHEMISTRY METHOD 09/05/2024 2:53 PM [facility] Comment:Calculation based on the Chronic Kidney Disease Epidemiology Collaboration (CKD-EPI) equation refit without adjustment for race. BUN/Creatinine Ratio 28.8 LAB CHEMISTRY METHOD 09/05/2024 2:53 PM [facility] Calcium 9.5 8.5 - 10.5 mg/dL LAB CHEMISTRY METHOD 09/05/2024 2:53 PM [facility] Blood Venous blood specimen / Unknown Venipuncture / Unknown 09/05/2024 9:13 AM EDT 09/05/2024 9:13 AM EDT us Clara Nelson MD LAB BLOOD ORDERABLES Final Resul t [facility] [address] [place] [address], * CT LUNG SCREENING LOW DOSE (03/14/2023 1:48 PM EDT) Anatomical Region Laterality Modality Computed Tomogra phy 03/14/2023 8:59 AM EDT Narrative 03/14/2023 1:48 PM EDT [facility] Diagnostic Imaging Department [address] [place] [address] Patient: HERNANDO RUELAS D.O.B./Age/Sex: 1950 - 72 - F Unit#: [id number] Location/Status: SPDICATLS/REG CLI Mnemonic/Ordering Site: [facility] Ordering Physician: JADE PEREZ MD CT Lung Screening Low Dose - 03/14/23 - 908 Report Status:Signed History: 72 year-old 58 pack-year current smoker, asymptomatic, for lung cancer screening Comparison: 03/13/2022 Technique: Helical volumetric imaging of the thorax was performed, using low- dose technique, without IV contrast. DLP: 166.46 mGy/cm CTDIvol: 4.83 mGy Phonetime VCT Iterative reconstruction technique Findings: Chest: There [...] suggestive of an inflammatory or infectious process. [id number] [id number] [id number] [id number] Dictating Physician: RUKHSANA SARAVIA MD Electronically Signed by: RUKHSANA SARAVIA MD Dic Date/Time: 03/14/23 1335 Sign date/Time: 03/14/23 1348 Procedure Note Rukhsana Saravia MD - 07/24/2023 [facility] Diagnostic Imaging Department [address] [place] [id number] Patient: HERNANDO RUELAS /Age/Sex: 1950 - 72 - F Unit#: [id number] Location/Status: SPDICATLS/REG CLI Mnemonic/[facility] [place] Ordering Physician: JADE PEREZ MD CT Lung Screening Low Dose - 03/14/23908 Report Status:Signed History: 72 year-old 58 pack-year current smoker, asymptomatic, for lungcancer screening Comparison: 03/13/2022 Technique: Helical volumetric imaging of the thorax was performed, usinglow- dose technique, without IV contrast. DLP: 166.46 mGy/cm CTDIvol: 4.83 mGy [employer] VCT Iterative reconstruction technique Findings: Chest: There [...] Findings suggestive of an inflammatory orinfectious process. 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
== END 2025-04-06 08:58 | disposition home or self-care (01) ==
LOC: HO.MAMMO 08:57
PROVIDERS: PCP Internal Medicine; Visit Provider Student in an Organized Health Care Education/Training Program
DX: M81.0 Age-related osteoporosis without current pathological fracture (principal)
CPT/HCPCS: 77080